=== PATIENT | male | born 1945 | race Caucasian/White ===

== ENCOUNTER → 2017-08-24 | Outpatient (CLI) | payer MEDICARE, OTHER ==
[2017-08-24 15:20] LABS: ALANINE AMINOTRANSFERASE 34 U/L (21-72); ALBUMIN 4.4 g/dL (3.5-5.0); ALKALINE PHOSPHATASE 45 U/L (38-126); ANION GAP 13 (5-19); ASPARTATE AMINO TRANSFERASE 26 U/L (17-59); BILIRUBIN,DIRECT 0.4 mg/dL (0.0-0.4); BILIRUBIN,TOTAL 0.6 mg/dL (0.2-1.3); BLOOD UREA NITROGEN 24 mg/dL (7-20); CALCIUM 10.1 mg/dL (8.4-10.2); CARBON DIOXIDE 25 mmol/L (22-30); CHLORIDE 100 mmol/L (98-107); GLUCOSE 301 mg/dL (75-110); POTASSIUM 5.2 mmol/L (3.6-5.0); SODIUM 137.9 mmol/L (137-145); TOTAL PROTEIN 7.3 g/dL (6.3-8.2); TRIGLYCERIDES 83 mg/dL (<150)
[2017-08-24 15:32] LABS: DIRECT LDL 165 mg/dL (<100)
== END ==
LOC: OD 13:55
PROVIDERS: ATTEND Family Medicine
DX: E11.9 Type 2 diabetes mellitus without complications (principal)
CPT/HCPCS: 36415; 80053; 80061; 83036

== ENCOUNTER → 2018-01-11 | Outpatient (CLI) | payer MEDICARE ==
[2018-01-11 10:06] LABS: ABSOLUTE BASOPHILS # (AUTO) 0.1 10^3/uL (0.0-0.2); ABSOLUTE EOSINOPHILS # (AUTO) 0.3 10^3/uL (0.0-0.6); ABSOLUTE LYMPHOCYTES (AUTO) 2.5 10^3/uL (0.5-4.7); ABSOLUTE MONOCYTES (AUTO) 0.5 10^3/uL (0.1-1.4); ABSOLUTE NEUT (AUTO) 5.5 10^3/uL (1.7-8.2); BASOPHILS % (AUTO) 0.9 % (0-2); EOSINOPHILS % (AUTO) 3.8 % (0-6); HEMOGLOBIN 12.9 g/dL (13.5-17.0); MEAN CORPUSCULAR HEMOGLOBIN 29.8 pg (27.0-33.4); MEAN CORPUSCULAR VOLUME 88 fl (80-97); PLATELET COUNT 295 10^3/uL (150-450); RED BLOOD COUNT 4.34 10^6/uL (4.35-5.55); RED CELL DISTRIBUTION WIDTH 12.8 % (11.5-14.0); SEGMENTED NEUTROPHILS % (AUTO) 61.3 % (42-78); TOTAL CELLS COUNTED % (AUTO) 100 %
[2018-01-11 10:26] LABS: ALANINE AMINOTRANSFERASE 43 U/L (21-72); ALBUMIN 4.2 g/dL (3.5-5.0); ALKALINE PHOSPHATASE 42 U/L (38-126); ANION GAP 9 (5-19); ASPARTATE AMINO TRANSFERASE 33 U/L (17-59); BILIRUBIN,DIRECT 0.3 mg/dL (0.0-0.4); BILIRUBIN,TOTAL 0.5 mg/dL (0.2-1.3); BLOOD UREA NITROGEN 24 mg/dL (7-20); CALCIUM 9.6 mg/dL (8.4-10.2); CARBON DIOXIDE 28 mmol/L (22-30); CHLORIDE 105 mmol/L (98-107); CHOLESTEROL 144.62 mg/dL (0-200); GLUCOSE 162 mg/dL (75-110); POTASSIUM 5.2 mmol/L (3.6-5.0); SODIUM 142.1 mmol/L (137-145); TOTAL PROTEIN 7.1 g/dL (6.3-8.2); TRIGLYCERIDES 72 mg/dL (<150)
[2018-01-11 10:37] LABS: DIRECT LDL 69 mg/dL (<100)
[2018-01-12 12:39] LABS: CREATININE URINE 157.1 mg/dL (Not Estab.); MICROALBUMIN URINE 12.3 ug/mL (Not Estab.)
== END ==
LOC: OD 08:53
PROVIDERS: ATTEND Family Medicine Geriatric Medicine
DX: E11.9 Type 2 diabetes mellitus without complications (principal); E78.5 Hyperlipidemia, unspecified; N40.0 Benign prostatic hyperplasia without lower urinary tract symptoms; Z79.899 Other long term (current) drug therapy
CPT/HCPCS: 36415; 80053; 80061; 82043; 82570; 83036; 84153; 84443; 85025

== ENCOUNTER → 2018-02-28 | Outpatient (CLI) | payer MEDICARE | LOC: OD 08:37 | PROVIDERS: ATTEND Internal Medicine | DX: E87.5 Hyperkalemia (principal) | CPT/HCPCS: 36415; 84132 ==

== ENCOUNTER → 2018-05-11 | Outpatient (CLI) | payer MEDICARE ==
[2018-05-11 10:45] LABS: ANION GAP 12 (5-19); BLOOD UREA NITROGEN 22 mg/dL (7-20); CALCIUM 9.9 mg/dL (8.4-10.2); CARBON DIOXIDE 27 mmol/L (22-30); CHLORIDE 103 mmol/L (98-107); CHOLESTEROL 129.87 mg/dL (0-200); GLUCOSE 142 mg/dL (75-110); POTASSIUM 5.2 mmol/L (3.6-5.0); TRIGLYCERIDES 55 mg/dL (<150)
[2018-05-11 10:56] LABS: DIRECT LDL 69 mg/dL (<100)
[2018-05-12 10:38] LABS: CREATININE URINE 67.6 mg/dL (Not Estab.)
== END ==
LOC: OD 09:09
PROVIDERS: ATTEND Internal Medicine
DX: E78.5 Hyperlipidemia, unspecified (principal); E11.9 Type 2 diabetes mellitus without complications; N19 Unspecified kidney failure; N40.0 Benign prostatic hyperplasia without lower urinary tract symptoms
CPT/HCPCS: 36415; 80048; 80061; 82043; 82570; 83036; 84153

== ENCOUNTER → 2018-05-23 | Outpatient (CLI) | payer MEDICARE ==
--- NOTE | 2018-05-23 18:56 | XCELERA REPORT ---
[address] [address] Lower Extremity Arterial Evaluation Name: LEE IVEY Age: 73 yrs Gender: Male : 1945 Patient Status: Outpatient Patient Location: [facility] Study Date: 05/23/2018 11:19 AM Procedure: A color flow and duplex scan of the lower extremity arteries was performed bilaterally with velocity and waveform anaylsis. Reason For Study: PAD Ordering Physician: EL ARELLANO Performed By: Noble Hernandez Measurements and Calculations Right Left SUPERVISOR [employer]LOOR [employer]SEMBL[employer] PSV 168.5 143.8 cm/sec Prox PFA PSV -110.3 -127.8cm/sec Prox Pop A PSV 36.2 94.3 cm/sec Dist Pop A PSV -53.1 cm/sec Prox SILVER PSV -17.9 cm/sec Dist SILVER PSV 8.3 37.1 cm/sec Prox TEST DECK SUPERVISOR PSV 63.2 cm/sec Dist TEST DECK SUPERVISOR PSV 39.1 36.7 cm/sec Leon Pedis PSV 10.6 45.0 cm/sec Right Side Arterial Evaluation Normal velocity and triphasic waveforms noted in the Common Femoral artery. Biphasic with low normal velocities in the Femoral and Popliteal artery . Monophasic with low normal velocity in the Posterior Tibial. Monophasic with very low velocity in the Anterior Tibial artery. Ankle Brachial index not obtained patient declined. Left Side Arterial Evaluation Normal velocity and triphasic waveforms noted from the Common Femoral artery. to the Popliteal artery . Biphasic with low normal velocity in the Posterior Tibial. Monophasic with very low velocity in the Infrageniculate vessels. Monophasic with low normal velocity in the Dorsalis Pedis. Ankle Brachial index not obtained patient declined. Interpretation Summary Multilevel disease noted on the right, Severe hemodynamic consequence. Moderately severe disease on the left. The results noted, at rest. : EL ARELLANO > Masoud Rios
== END ==
LOC: SP 10:55
PROVIDERS: ATTEND Internal Medicine
DX: I73.9 Peripheral vascular disease, unspecified (principal); E87.5 Hyperkalemia
CPT/HCPCS: 36415; 84132; 93925

== ENCOUNTER → 2018-06-14 | Outpatient (CLI) | payer MEDICARE ==
--- NOTE | 2018-06-14 13:15 | RADIOLOGY REPORT (SQ) ---
EXAM DESCRIPTION: FOOT BILATERAL 3 VIEWS COMPLETED DATE/TIME: 06/14/2018 12:30 pm REASON FOR STUDY: OSTEOMYELITIS M79.671 PAIN IN RIGHT FOOT COMPARISON: None. NUMBER OF VIEWS: Three views. TECHNIQUE: AP, lateral and oblique without weight bearing radiographic images acquired of the right and left foot. LIMITATIONS: None. FINDINGS: RIGHT FOOT: MINERALIZATION: Normal. BONES: No acute fracture or dislocation. No worrisome bone lesions. Small plantar calcaneal spur. JOINTS: No erosions. No carol-articular osteopenia. No chondrocalcinosis. SOFT TISSUES: No swelling. No calcifications. OTHER: No other significant finding. LEFT FOOT: MINERALIZATION: Normal. BONES: No acute fracture or dislocation. Apparent old fractures of the distal tibia and fibula, not well visualized. No worrisome bone lesions. Mild hallux valgus and bunion deformity. Small plantar calcaneal spur. JOINTS: No erosions. No carol-articular osteopenia. No chondrocalcinosis. SOFT TISSUES: No swelling. No calcifications. OTHER: No other significant finding. IMPRESSION: CHRONIC CHANGES DESCRIBED ABOVE. NO ACUTE FINDINGS. NO RADIOGRAPHIC CHANGES OF OSTE OMYELITIS. TECHNICAL DOCUMENTATION: JOB ID: [id number] [employer]- All Rights Reserved Reading location - IP/workstation name: [email or web address]
== END ==
LOC: OD 12:06
PROVIDERS: ATTEND Internal Medicine
DX: M79.671 Pain in right foot (principal)

== ENCOUNTER → 2018-06-28 | Outpatient (CLI) | payer MEDICARE ==
--- NOTE | 2018-06-28 16:58 | RADIOLOGY REPORT (SQ) ---
EXAM DESCRIPTION: CAROTID DOPPLER COMPLETED DATE/TIME: 06/28/2018 3:58 pm REASON FOR STUDY: CAROTID BRUIT R09.89 OTH SYMPTOMS AND SIGNS INVOLVING THE CIRC AND RESP SY COMPARISON: None. TECHNIQUE: Grayscale ultrasound, Doppler velocity and spectra, and color Doppler images acquired of the extra-cranial carotid and vertebral arteries. Images stored on PACS. LIMITATIONS: None. FINDINGS: RIGHT CAROTID CCA Velocities: Normal waveform and velocities without evidence of high-grade stenosis. ICA Velocities Peak systolic 69 cm/s. End diastolic 21 cm/s. Proximal ICA/CCA peak systolic ratio 1.73. Spectra normal. Mild scattered eccentric plaque. LEFT CAROTID CCA Velocities: Normal waveforms and velocities without evidence of high-grade stenosis. ICA Velocities Peak systolic 58 cm/s. End diastolic 16 cm/s. Proximal ICA/CCA peak systolic ratio 1.48. Spectra normal. Mild scattered eccentric plaque plaque. VERTEBRAL ARTERIES: Antegrade flow. Normal waveforms. SUBCLAVIAN ARTERIES: Not imaged. OTHER: External carotid arteries demonstrate multiphasic waveforms bilaterally. IMPRESSION: Scattered carotid atherosclerosis without hemodynamically significant stenosis. COMMENT: Quality ID #[id number]: Velocity criteria are extrapolated from the diameter data as defined by t he Society of Radiologists in Ultrasound Consensus Conference. Radiology 2003: 229; 340-346. TECHNICAL DOCUMENTATION: JOB ID: [id number] [employer]- All Rights Reserved Reading location - IP/workstation name: [email or web address]
== END ==
LOC: SP 13:51
PROVIDERS: ATTEND Surgery
DX: R09.89 Other specified symptoms and signs involving the circulatory and respiratory systems (principal)
CPT/HCPCS: 93880

== ENCOUNTER → 2018-07-28 | Outpatient (CLI) | payer MEDICARE ==
[2018-07-28 14:15] LABS: ABSOLUTE BASOPHILS # (AUTO) 0.1 10^3/uL (0.0-0.2); ABSOLUTE EOSINOPHILS # (AUTO) 0.2 10^3/uL (0.0-0.6); ABSOLUTE LYMPHOCYTES (AUTO) 2.4 10^3/uL (0.5-4.7); ABSOLUTE MONOCYTES (AUTO) 0.7 10^3/uL (0.1-1.4); ABSOLUTE NEUT (AUTO) 7.1 10^3/uL (1.7-8.2); BASOPHILS % (AUTO) 0.7 % (0-2); EOSINOPHILS % (AUTO) 1.8 % (0-6); HEMATOCRIT 33.8 % (37.9-51.0); HEMOGLOBIN 11.2 g/dL (13.5-17.0); LYMPHOCYTES % (AUTO) 22.9 % (13-45); MEAN CORPUSCULAR HEMOGLOBIN 29.4 pg (27.0-33.4); MEAN CORPUSCULAR HGB CONC 33.2 g/dL (32.0-36.0); MEAN CORPUSCULAR VOLUME 89 fl (80-97); MONOCYTES % (AUTO) 6.5 % (3-13); PLATELET COUNT 438 10^3/uL (150-450); RED BLOOD COUNT 3.82 10^6/uL (4.35-5.55); RED CELL DISTRIBUTION WIDTH 12.5 % (11.5-14.0); SEGMENTED NEUTROPHILS % (AUTO) 68.1 % (42-78); TOTAL CELLS COUNTED % (AUTO) 100 %; WHITE BLOOD COUNT 10.4 10^3/uL (4.0-10.5)
--- NOTE | 2018-07-28 14:22 | RADIOLOGY REPORT (SQ) ---
EXAM DESCRIPTION: CHEST PA/LATERAL COMPLETED DATE/TIME: 07/28/2018 1:49 pm REASON FOR STUDY: PNEUMOTHORAX,UNSPECIFIED, NON-PRESSURE ULCER CHRONIC ULCER OF OTHER PART OF COMPARISON: None. EXAM PARAMETERS: NUMBER OF VIEWS: two views TECHNIQUE: Digital Frontal and Lateral radiographic views of the chest acquired. RADIATION DOSE: NA LIMITATIONS: none FINDINGS: LUNGS AND PLEURA: No opacities, masses or pneumothorax. No pleural effusion. MEDIASTINUM AND HILAR STRUCTURES: No masses or contour abnormalities. HEART AND VASCULAR STRUCTURES: Heart normal size. No evidence for failure. BONES: No acute findings. HARDWARE: None in the chest. OTHER: No other significant finding. IMPRESSION: 1. NO SIGNIFICANT RADIOGRAPHIC FINDING IN THE CHEST. TECHNICAL DOCUMENTATION: JOB ID: [id number] [employer]- All Rights Reserved Reading location - IP/workstation name: [email or web address]
[2018-07-28 14:34] LABS: ALANINE AMINOTRANSFERASE 18 U/L (21-72); ALBUMIN 3.9 g/dL (3.5-5.0); ALKALINE PHOSPHATASE 55 U/L (38-126); ANION GAP 10 (5-19); ASPARTATE AMINO TRANSFERASE 16 U/L (17-59); BILIRUBIN,DIRECT 0.1 mg/dL (0.0-0.4); BILIRUBIN,TOTAL 0.2 mg/dL (0.2-1.3); BLOOD UREA NITROGEN 22 mg/dL (7-20); CALCIUM 9.5 mg/dL (8.4-10.2); CARBON DIOXIDE 29 mmol/L (22-30); CHLORIDE 101 mmol/L (98-107); GLUCOSE 128 mg/dL (75-110); POTASSIUM 4.9 mmol/L (3.6-5.0); SODIUM 139.7 mmol/L (137-145); TOTAL PROTEIN 6.5 g/dL (6.3-8.2)
--- NOTE | 2018-07-28 14:53 | RADIOLOGY REPORT (SQ) ---
EXAM DESCRIPTION: FOOT BILATERAL 3 VIEWS COMPLETED DATE/TIME: 07/28/2018 1:49 pm REASON FOR STUDY: PNEUMOTHORAX,UNSPECIFIED, NON-PRESSURE ULCER CHRONIC ULCER OF OTHER PART OF L97.51 2 NON-PRS CHRONIC ULCER OTH PRT RIGHT FOOT W FAT LAYER E11.621 TYPE 2 DIABETES MELLITUS WITH FOOT U LCER J93.9 PNEUMOTHORAX, UNSPECIFIED COMPARISON: 06/14/2018 bilateral feet three view radiographs NUMBER OF VIEWS: Three views. TECHNIQUE: AP, lateral and oblique radiographic images acquired of the right and left foot. LIMITATIONS: None. FINDINGS: RIGHT MINERALIZATION: Normal. BONES: Soft tissue ulcer at the 5th metatarsophalangeal joint. There is subtle demineralization at t he 5th metatarsal head worrisome for early osteomyelitis. JOINTS: No effusions. SOFT TISSUES: Soft tissue ulcer at the 5th metatarsophalangeal joint. No bony demineralization OTHER: No other significant finding. LEFT MINERALIZATION: Normal. BONES: No acute fracture or dislocation. No worrisome bone lesions. JOINTS: No effusions. SOFT TISSUES: No soft tissue swelling. No foreign body. Small soft tissue ulcer at the left 5th met atarsophalangeal joint region without underlying bony demineralization OTHER: No other significant finding. IMPRESSION: Bilateral 5th metatarsophalangeal joint region ulcers. On the right side, subtle demineralization of the right 5th metatarsal head is present worrisome for early osteomyelitis. No underlying bony changes deep to the left plantar ulcer. TECHNICAL DOCUMENTATION: JOB ID: [id number] [employer]- All Rights Reserved Reading location - IP/workstation name: [email or web address]
[2018-07-28 15:13] LABS: ERYTHROCYTE SEDIMENTATION RATE 78 mm/hr (0-20)
== END ==
LOC: WC 13:13
PROVIDERS: ATTEND Preventive Medicine Undersea and Hyperbaric Medicine
DX: E11.621 Type 2 diabetes mellitus with foot ulcer (principal); L97.522 Non-pressure chronic ulcer of other part of left foot with fat layer exposed; L97.512 Non-pressure chronic ulcer of other part of right foot with fat layer exposed; J93.9 Pneumothorax, unspecified
CPT/HCPCS: 36415; 71046; 80053; 83036; 85025; 85652; 86140

== ENCOUNTER 2018-08-26 15:52 | Emergency (ER) | payer MEDICARE ==
[2018-08-26] MEDS ORDERED: SODIUM POLYSTYRENE SULFONATE 15 GM/60 ML PO ONE (17:03)
[2018-08-26] MEDS ORDERED: PATIROMER 8.4 GM SUSP PACKET PO SCH (17:30)
--- NOTE | 2018-08-26 17:33 | ER Document Report ---
ED General - General Chief Complaint: Abnormal Lab Results Stated Complaint: ABNORMAL TEST RESULTS Time Seen by Provider: 08/26/18 17:02 Primary Care Provider: SKYE CORADO FINANCIAL SERVICES SPECIALIST, FINANCIAL SERVICES SPECIALIST [Primary Care Provider] - Follow up as needed Mode of Arrival: Ambulatory Information source: Patient, Relative, [facility] Records Notes: This 73-year-old male patient was sent from the wound care clinic for evaluation of an elevated potassium. He had routine lab work done today and his potassium was 6.1. Reviewing prior lab work, I found that his potassium had run about 5.2 through most of 2018 and was 4.9 one month ago. Vision his creatinine is only slightly higher than it was a month ago. Patient states that he has been eating a lot of fruits to try to help better control his diabetes. He is also been getting orange juice when he is at the wound care clinic. Patient is currently being seen in the wound care clinic for an ulcer on his right foot. He is doing hyperbaric chamber treatments. TRAVEL OUTSIDE OF THE [place] IN LAST 30 DAYS: No - Related Data Allergies/Adverse Reactions: No Known Allergies Allergy (Unverified 08/26/18 15:57) Past Medical History - General Information source: Patient, [facility] Records - Social History Smoking Status: Former Smoker - Quit 40 years ago Cigarette use (# per day): No Chew tobacco use (# tins/day): No Smoking Education Provided: No Frequency of alcohol use: None - Quit 30 years ago Drug Abuse: None Occupation: Retired Lives with: Family Family History: Reviewed & Not Pertinent Patient has suicidal ideation: No Patient has homicidal ideation: No - Past Medical History Cardiac Medical History: Reports: Hx Peripheral Vascular Disease Pulmonary Medical History: Reports: None EENT Medical History: Reports: None Neurological Medical History: Reports: None Endocrine Medical History: Reports: Hx Diabetes Mellitus Type 2 Renal/ Medical History: Reports: None GI Medical History: Reports: None Musculoskeletal Medical History: Reports None Skin Medical History: Reports None Psychiatric Medical History: Reports: None Traumatic Medical History: Reports: Hx Fractures - Right tib-fib Past Surgical History: Reports: Hx Orthopedic Surgery - ORIF right tib-fib Review of Systems - Review of Systems Constitutional: No symptoms reported EENT: No symptoms reported Cardiovascular: No symptoms reported Respiratory: No symptoms reported Gastrointestinal: No symptoms reported Genitourinary: No symptoms reported Musculoskeletal: No symptoms reported Skin: Other - Diabetic pressure ulcers on the right foot Hematologic/Lymphatic: No symptoms reported Neurological/Psychological: Other - Diabetic peripheral neuropathy Physical Exam - Vital signs Vitals: Temp Pulse Resp BP Pulse Ox 97.4 F 89 16 132/41 H 91 L 08/26/18 16:00 08/26/18 16:00 08/26/18 16:00 08/26/18 16:00 08/26/18 16:00 Interpretation: Normal - General General appearance: Appears well, Alert In distress: None - HEENT Head: Normocephalic, Atraumatic Eyes: Normal Pupils: PERRL - Respiratory Respiratory status: No respiratory distress Chest status: Nontender Breath sounds: Normal - Cardiovascular Rhythm: Regular Heart sounds: Normal auscultation Murmur: No - Abdominal Inspection: Normal - Back Back: Normal - Extremities General upper extremity: Normal inspection General lower extremity: Other - There are bandages and socks on the feet. - Neurological Neuro grossly intact: Yes - Psychological Associated symptoms: Normal affect, Normal mood - Skin Skin Temperature: Warm Skin Moisture: Dry Skin Color: Normal Course - Vital Signs Vital signs: Temp Pulse Resp BP Pulse Ox 97.4 F 89 16 132/41 H 91 L 08/26/18 16:00 08/26/18 16:00 08/26/18 16:00 08/26/18 16:00 08/26/18 16:00 - EKG Interpretation by Me EKG shows normal: Sinus rhythm, [place], Intervals, QRS Complexes, ST-T Waves Rate: Normal - 75 Rhythm: NSR Voltage: Decreased voltage When compared to previous EKG there are: Previous EKG unavailable Discharge - Discharge Clinical Impression: Hyperkalemia Condition: Stable Disposition: HOME, SELF-CARE Additional Instructions: Your potassium level was little high today. If it gets much higher, it could affect your heart electrical activity. You should review all the fruits that you are eating and eliminate those that are high in potassium. Drink plenty of water this evening to help flush out more of the potassium. The Veltassa you were given in the emergency room will bind a large amount of that excess potassium and help remove it from your system quicker. Follow-up with your primary care provider Wednesday to repeat your potassium level. RETURN TO THE EMERGENCY ROOM IF ANY NEW OR WORSENING SYMPTOMS. Referrals: GAVEL,SKYE FINANCIAL SERVICES SPECIALIST, FINANCIAL SERVICES SPECIALIST [Primary Care Provider] - Follow up as needed
[2018-08-26 18:21] VITALS: BP 152/69
--- NOTE | 2018-08-26 23:04 | EKG REPORT ---
SEVERITY:- OTHERWISE NORMAL ECG - SINUS RHYTHM LOW VOLTAGE IN FRONTAL LEADS : Confirmed by: Krystyna Hamlin 26-Aug-2018 23:03:35
== END 2018-08-26 18:21 | disposition home or self-care (01) ==
LOC: ER 15:52
DX: E87.5 Hyperkalemia (principal); E11.9 Type 2 diabetes mellitus without complications
CPT/HCPCS: 93005; 99283; 93010; J3490

== ENCOUNTER → 2018-08-26 | Outpatient (CLI) | payer MEDICARE ==
--- NOTE | 2018-08-26 11:26 | RADIOLOGY REPORT (SQ) ---
EXAM DESCRIPTION: FOOT RIGHT COMPLETE COMPLETED DATE/TIME: 08/26/2018 11:18 am REASON FOR STUDY: TYPE 2 DIABETES MELLITUS WITH FOOT ULCER E11.621 TYPE 2 DIABETES MELLITUS WITH FO OT ULCER COMPARISON: None. NUMBER OF VIEWS: Three views. TECHNIQUE: AP, lateral and oblique radiographic images acquired of the right foot. LIMITATIONS: None. FINDINGS: MINERALIZATION: Normal. BONES: No acute fracture or dislocation. No worrisome bone lesions. JOINTS: No effusions. SOFT TISSUES: No soft tissue swelling. No foreign body. OTHER: No other significant finding. IMPRESSION: NEGATIVE STUDY OF THE RIGHT FOOT. NO RADIOGRAPHIC EVIDENCE OF ACUTE INJURY. TECHNICAL DOCUMENTATION: JOB ID: [id number] [employer]- All Rights Reserved Reading location - IP/workstation name: [email or web address]
[2018-08-26 11:28] LABS: ABSOLUTE EOSINOPHILS # (AUTO) 0.5 10^3/uL (0.0-0.6); ABSOLUTE MONOCYTES (AUTO) 0.6 10^3/uL (0.1-1.4); ABSOLUTE NEUT (AUTO) 6.4 10^3/uL (1.7-8.2); BASOPHILS % (AUTO) 0.4 % (0-2); EOSINOPHILS % (AUTO) 5.3 % (0-6); HEMOGLOBIN 11.4 g/dL (13.5-17.0); MEAN CORPUSCULAR HEMOGLOBIN 30.1 pg (27.0-33.4); MEAN CORPUSCULAR HGB CONC 33.6 g/dL (32.0-36.0); MEAN CORPUSCULAR VOLUME 89 fl (80-97); MONOCYTES % (AUTO) 6.4 % (3-13); PLATELET COUNT 291 10^3/uL (150-450); RED BLOOD COUNT 3.81 10^6/uL (4.35-5.55); RED CELL DISTRIBUTION WIDTH 13.8 % (11.5-14.0); SEGMENTED NEUTROPHILS % (AUTO) 66.9 % (42-78); TOTAL CELLS COUNTED % (AUTO) 100 %; WHITE BLOOD COUNT 9.6 10^3/uL (4.0-10.5)
[2018-08-26 11:50] LABS: ALANINE AMINOTRANSFERASE 37 U/L (21-72); ALBUMIN 4.1 g/dL (3.5-5.0); ALKALINE PHOSPHATASE 47 U/L (38-126); ANION GAP 8 (5-19); ASPARTATE AMINO TRANSFERASE 28 U/L (17-59); BILIRUBIN,DIRECT 0.2 mg/dL (0.0-0.4); BILIRUBIN,TOTAL 0.3 mg/dL (0.2-1.3); BLOOD UREA NITROGEN 21 mg/dL (7-20); C-REACTIVE PROTEIN 7.8 mg/L (<10.0); CALCIUM 10.3 mg/dL (8.4-10.2); CARBON DIOXIDE 28 mmol/L (22-30); CHLORIDE 101 mmol/L (98-107); GLUCOSE 195 mg/dL (75-110)
[2018-08-26 11:56] LABS: POTASSIUM 6.1 mmol/L (3.6-5.0)
[2018-08-26 12:04] LABS: ERYTHROCYTE SEDIMENTATION RATE 46 mm/hr (0-20)
== END ==
LOC: WC 10:42
PROVIDERS: ATTEND Nurse Practitioner Family
DX: E11.621 Type 2 diabetes mellitus with foot ulcer (principal); L97.512 Non-pressure chronic ulcer of other part of right foot with fat layer exposed; E11.69 Type 2 diabetes mellitus with other specified complication; M86.171 Other acute osteomyelitis, right ankle and foot
CPT/HCPCS: 36415; 80053; 83036; 85025; 85652; 86140

== ENCOUNTER 2018-09-21 06:54 | Day surgery (SDC) | payer MEDICARE ==
[~2018-09-21 06:54] MED LIST: CEFAZOLIN 1 GM/D5W RTU 1 GM/50 ML RTUPB IV SCH; DIPHENHYDRAMINE HCL 50 MG/ML VIAL ONE; FENTANYL CITRATE INJ/PF 100 MCG/2 ML AMPUL ONE; MIDAZOLAM 2 MG/2 ML INJ ONE; PROPOFOL INJ 200 MG/20 ML VIAL IV ONE
[2018-09-21] MEDS ORDERED: POLYMYXIN B SULFATE INJ 500000 UNIT VIAL ONE (07:15)
[2018-09-21] MEDS ORDERED: LIDOCAINE 2% INJ (20 MG/ML) 20 ML MDV ONE (07:16)
[2018-09-21] MEDS ORDERED: NORMAL SALINE INJ/PF 0.9% 10 ML SDV ONE (07:16)
[2018-09-21] MEDS ORDERED: BUPIVACAINE HCL 0.5 % INJ/PF 30 ML SDV ONE (07:16)
[2018-09-21] MEDS ORDERED: BACITRACIN INJ 50,000 UNIT VIAL ONE (07:16)
[2018-09-21] MEDS ORDERED: LIDOCAINE 2%/EPINEPHRINE INJ 20 ML VIAL ONE (08:14)
--- NOTE | 2018-09-21 10:13 | SURGICARE OPERATIVE REPORT E ---
[facility] Operative Report NAME: LEE IVEY AGE: 73Y DATE OF SURGERY: 09/21/2018 ROOM: PREOPERATIVE DIAGNOSES: 1. Ulceration of the fifth metatarsophalangeal joint of the right foot. 2. Peripheral artery disease. 3. Possible osteomyelitis of the fifth metatarsal head. OPERATION: Amputation of the fifth toe with partial fifth ray resection. OPERATING SURGEON: GAY GILBERT DPM GROUNDMAN/LINEMAN: Lara Mendoza DPM PROCEDURE: On 09/21/2018, the patient was admitted to [facility] and was taken to the operating room where following induction of intravenous sedation and regional local anesthesia, the patient's right foot and leg were prepped with Betadine scrub. Sterile draping was completed and the following procedure was performed. Attention was directed to the lateral aspect of the patient's right foot where there was noted to be a 3 cm diameter ulceration overlying the fifth metatarsophalangeal joint in a plantar lateral orientation. Attention was directed to the proximal portion of the fifth metatarsal where a 3 cm linear incision was placed on the dorsolateral aspect. It was deep in the subcutaneous tissues and superficial fascia. All bleeding vessels were clamped, ligated, and bovied as necessary for hemostasis. Incision was deepened via sharp and blunt dissection down to the fifth metatarsal. It was freed from its surrounding soft tissue attachments then utilizing a power sagittal saw the metatarsal was osteomized in a dorsal plantar fashion and angulated from proximal lateral to distal medial. The distal one half of the fifth metatarsal was removed en toto. A portion of the proximal end was sent for bacterial culture and the remaining portion was sent to pathology for examination. The area was flushed with copious amounts of sterile antibiotic solution and inspected for any soft tissue osseous debris. The wound was debrided as needed of any necrotic tissue. All tendinous and capsular structures were likewise removed. The wound was packed and attention was directed to the fifth toe. A racket-type incision was placed more dorsal medial and the fifth toe was disarticulated and removing the entire digit in one procedure. All necrotic tissue was debrided. All tendinous tissue was debrided. All bleeding vessels were clamped, ligated, and bovied as necessary for hemostasis. At that time, the wound was flushed with copious amounts of sterile antibiotic solution and inspected for any soft tissue osseous debris with none being noted. Fluoroscopic exam was performed and was noted all bony tissue had been removed that was targeted to be removed. At that time, bone wax applied to the remaining portion of the fifth metatarsal shaft and then the wound was then coapted and maintained with suture of 3-0 Vicryl in the deep fascial layers. Skin incision was then coapted and maintained with simple interrupted suture of 4-0 nylon. It should be noted that capillary filling was delayed on the wound margins and somewhat dusky. Patient has known peripheral artery disease currently under care of Dr Jiang, vascular surgeon. At that time, sterile dressings of Jani silk, 4 x 4s, and Kerlix was applied to the patient's right foot and was secured with tape. No compression dressing was applied. The patient tolerated surgery and anesthesia well and was then taken to the recovery room where further monitored by the Anesthesia Department. DICTATING PHYSICIAN: GAY GILBERT DPM [id number] PHY#: [id number] ID: [id number] JOB#: [id number] ACCT: [id number] cc:GAY GILBERT DPM > MTDD
--- NOTE | 2018-09-21 10:35 | RADIOLOGY REPORT (SQ) ---
EXAM DESCRIPTION: NO CHG FLUORO; FOOT RIGHT 2 VIEWS COMPLETED DATE/TIME: 09/21/2018 9:54 am REASON FOR STUDY: AMPUTATION OF THE FIFTH TOE H05.021 OSTEOMYELITIS OF RIGHT ORBIT COMPARISON: None. FLUOROSCOPY TIME: 1 Images saved to PACS TECHNIQUE: Intra-operative images acquired during surgical procedure to evaluate progress. NUMBER OF IMAGES: 1 LIMITATIONS: None. FINDINGS: LIMITED INTRAOPERATIVE FLUOROSCOPIC IMAGE OBTAINED TO EVALUATE PROGRESS. LIMITED IMAGING DEMONSTRATES EVIDENCE OF 5TH MID METATARSAL AMPUTATION. PLEASE SEE OPERATIVE REPORT FOR OUR FOR DETA ILED DESCRIPTION OF PROCEDURE. IMPRESSION: IMAGE(S) OBTAINED DURING PROCEDURE. COMMENT: Quality ID [id number]: Final reports for procedures using fluoroscopy that document radiation exp osure indices, or exposure time and number of fluorographic images (if radiation exposure indices are not available) Please consult full operative report of the attending physician for description of the procedure. TECHNICAL DOCUMENTATION: JOB ID: [id number] [employer]- All Rights Reserved Reading location - IP/workstation name: [email or web address]
--- NOTE | 2018-09-21 10:35 | RADIOLOGY REPORT (SQ) ---
EXAM DESCRIPTION: NO CHG FLUORO; FOOT RIGHT 2 VIEWS COMPLETED DATE/TIME: 09/21/2018 9:54 am REASON FOR STUDY: AMPUTATION OF THE FIFTH TOE H05.021 OSTEOMYELITIS OF RIGHT ORBIT COMPARISON: None. FLUOROSCOPY TIME: 1 Images saved to PACS TECHNIQUE: Intra-operative images acquired during surgical procedure to evaluate progress. NUMBER OF IMAGES: 1 LIMITATIONS: None. FINDINGS: LIMITED INTRAOPERATIVE FLUOROSCOPIC IMAGE OBTAINED TO EVALUATE PROGRESS. LIMITED IMAGING DEMONSTRATES EVIDENCE OF 5TH MID METATARSAL AMPUTATION. PLEASE SEE OPERATIVE REPORT FOR OUR FOR DETA ILED DESCRIPTION OF PROCEDURE. IMPRESSION: IMAGE(S) OBTAINED DURING PROCEDURE. COMMENT: Quality ID 145: Final reports for procedures using fluoroscopy that document radiation exp osure indices, or exposure time and number of fluorographic images (if radiation exposure indices are not available) Please consult full operative report of the attending physician for description of the procedure. TECHNICAL DOCUMENTATION: JOB ID: [id number] [employer]- All Rights Reserved Reading location - IP/workstation name: [email or web address]
== END 2018-09-21 10:52 | disposition home or self-care (01) ==
LOC: SC 06:54
PROVIDERS: ATTEND Preventive Medicine Undersea and Hyperbaric Medicine
DX: E11.621 Type 2 diabetes mellitus with foot ulcer (principal); I73.9 Peripheral vascular disease, unspecified; M86.671 Other chronic osteomyelitis, right ankle and foot; Z79.84 Long term (current) use of oral hypoglycemic drugs; I25.2 Old myocardial infarction
CPT/HCPCS: 87070; 87205; 87101; 82962; 87075; 88304 ×2; 88311; 73620; 28810; J2250; J3490 ×5; J0690; J1200; J3010; J2704; 01480

== ENCOUNTER → 2018-09-27 | Outpatient (CLI) | payer MEDICARE ==
[2018-09-27 16:19] LABS: ABSOLUTE BASOPHILS # (AUTO) 0.1 10^3/uL (0.0-0.2); ABSOLUTE EOSINOPHILS # (AUTO) 0.3 10^3/uL (0.0-0.6); ABSOLUTE LYMPHOCYTES (AUTO) 2.5 10^3/uL (0.5-4.7); ABSOLUTE MONOCYTES (AUTO) 0.6 10^3/uL (0.1-1.4); ABSOLUTE NEUT (AUTO) 5.6 10^3/uL (1.7-8.2); BASOPHILS % (AUTO) 0.8 % (0-2); EOSINOPHILS % (AUTO) 3.7 % (0-6); HEMOGLOBIN 11.1 g/dL (13.5-17.0); LYMPHOCYTES % (AUTO) 27.9 % (13-45); MEAN CORPUSCULAR HEMOGLOBIN 30.1 pg (27.0-33.4); MEAN CORPUSCULAR HGB CONC 33.7 g/dL (32.0-36.0); MEAN CORPUSCULAR VOLUME 89 fl (80-97); MONOCYTES % (AUTO) 6.2 % (3-13); PLATELET COUNT 306 10^3/uL (150-450); RED CELL DISTRIBUTION WIDTH 14.3 % (11.5-14.0); SEGMENTED NEUTROPHILS % (AUTO) 61.4 % (42-78); TOTAL CELLS COUNTED % (AUTO) 100 %; WHITE BLOOD COUNT 9.1 10^3/uL (4.0-10.5)
[2018-09-27 16:47] LABS: ALANINE AMINOTRANSFERASE 27 U/L (21-72); ALBUMIN 4.2 g/dL (3.5-5.0); ALKALINE PHOSPHATASE 42 U/L (38-126); ANION GAP 10 (5-19); ASPARTATE AMINO TRANSFERASE 23 U/L (17-59); BILIRUBIN,DIRECT 0.2 mg/dL (0.0-0.4); BILIRUBIN,TOTAL 0.3 mg/dL (0.2-1.3); BLOOD UREA NITROGEN 22 mg/dL (7-20); C-REACTIVE PROTEIN 7.1 mg/L (<10.0); CALCIUM 10.2 mg/dL (8.4-10.2); CARBON DIOXIDE 25 mmol/L (22-30); CHLORIDE 104 mmol/L (98-107); GLUCOSE 147 mg/dL (75-110); POTASSIUM 4.7 mmol/L (3.6-5.0); SODIUM 138.5 mmol/L (137-145); TOTAL PROTEIN 7.1 g/dL (6.3-8.2)
--- NOTE | 2018-09-27 16:53 | RADIOLOGY REPORT (SQ) ---
EXAM DESCRIPTION: FOOT RIGHT COMPLETE COMPLETED DATE/TIME: 09/27/2018 4:13 pm REASON FOR STUDY: NON-PRS CHRONIC ULCER OTH PRT RIGHT FOOT W FAT LAYER EXPOSED L97.512 NON-PRS [employer] EJ ULCER OTH PRT RIGHT FOOT W FAT LAYER E11.621 TYPE 2 DIABETES MELLITUS WITH FOOT ULCER COMPARISON: None. NUMBER OF VIEWS: Three views. TECHNIQUE: AP, lateral and oblique radiographic images acquired of the right foot. LIMITATIONS: None. FINDINGS: MINERALIZATION: Normal. BONES: There is amputation of the 5th digit from the mid 5th metatarsal. There is no evidence of ost eomyelitis. There is deformity of the distal tibia from a prior injury. JOINTS: No effusions. SOFT TISSUES: No soft tissue swelling. No foreign body. OTHER: No other significant finding. IMPRESSION: There is no evidence of osteomyelitis status post amputation. TECHNICAL DOCUMENTATION: JOB ID: [id number] [employer]- All Rights Reserved Reading location - IP/workstation name: [email or web address]
[2018-09-27 17:03] LABS: ERYTHROCYTE SEDIMENTATION RATE 58 mm/hr (0-20)
== END ==
LOC: WC 15:25
PROVIDERS: ATTEND Preventive Medicine Undersea and Hyperbaric Medicine
DX: E11.621 Type 2 diabetes mellitus with foot ulcer (principal); L97.512 Non-pressure chronic ulcer of other part of right foot with fat layer exposed
CPT/HCPCS: 36415; 80053; 83036; 85025; 85652; 86140

== ENCOUNTER → 2018-10-18 | Outpatient (CLI) | payer MEDICARE ==
--- NOTE | 2018-10-18 16:30 | RADIOLOGY REPORT (SQ) ---
EXAM DESCRIPTION: FOOT RIGHT COMPLETE COMPLETED DATE/TIME: 10/18/2018 3:42 pm REASON FOR STUDY: NON-PRS CHRONIC ULCER OTH PRT RIGHT FOOT W FAT LAYER EXPOSED E11.621 TYPE 2 DIABE [place] MELLITUS WITH FOOT ULCER L97.512 NON-PRS CHRONIC ULCER OTH PRT RIGHT FOOT W FAT LAYER COMPARISON: 08/26/2018, 09/21/2018, 09/27/2018 right foot films NUMBER OF VIEWS: Three views. TECHNIQUE: AP, lateral and oblique radiographic images acquired of the right foot. LIMITATIONS: None. FINDINGS: MINERALIZATION: Normal. BONES: Post transmetatarsal amputation of the right 5th toe in. No bulky bony overgrowth at the 5th metatarsal to suggest chronic infection. Tiny plantar and dorsal calcaneal spurs. Mild hallux valgu s deformity JOINTS: No effusions. SOFT TISSUES: Small soft tissue ulcer at the skin amputation site over the ball of the foot. No fore ign body. OTHER: No other significant finding. IMPRESSION: Small soft tissue ulcer at the skin over the ball of foot, at the amputation site. No underlying bony findings worrisome for acute or chronic infection TECHNICAL DOCUMENTATION: JOB ID: [id number] [employer]- All Rights Reserved Reading location - IP/workstation name: [email or web address]
[2018-10-18 17:02] LABS: ABSOLUTE BASOPHILS # (AUTO) 0.1 10^3/uL (0.0-0.2); ABSOLUTE EOSINOPHILS # (AUTO) 0.4 10^3/uL (0.0-0.6); ABSOLUTE LYMPHOCYTES (AUTO) 2.4 10^3/uL (0.5-4.7); ABSOLUTE MONOCYTES (AUTO) 0.5 10^3/uL (0.1-1.4); ABSOLUTE NEUT (AUTO) 4.8 10^3/uL (1.7-8.2); BASOPHILS % (AUTO) 0.8 % (0-2); EOSINOPHILS % (AUTO) 4.3 % (0-6); HEMATOCRIT 35.1 % (37.9-51.0); HEMOGLOBIN 11.7 g/dL (13.5-17.0); LYMPHOCYTES % (AUTO) 29.4 % (13-45); MEAN CORPUSCULAR HGB CONC 33.2 g/dL (32.0-36.0); MEAN CORPUSCULAR VOLUME 90 fl (80-97); MONOCYTES % (AUTO) 6.3 % (3-13); PLATELET COUNT 272 10^3/uL (150-450); RED CELL DISTRIBUTION WIDTH 14.4 % (11.5-14.0); SEGMENTED NEUTROPHILS % (AUTO) 59.2 % (42-78); TOTAL CELLS COUNTED % (AUTO) 100 %; WHITE BLOOD COUNT 8.2 10^3/uL (4.0-10.5)
[2018-10-18 17:40] LABS: ERYTHROCYTE SEDIMENTATION RATE 31 mm/hr (0-20)
[2018-10-18 17:53] LABS: ALANINE AMINOTRANSFERASE 21 U/L (21-72); ALBUMIN 4.3 g/dL (3.5-5.0); ALKALINE PHOSPHATASE 40 U/L (38-126); ANION GAP 9 (5-19); ASPARTATE AMINO TRANSFERASE 20 U/L (17-59); BILIRUBIN,DIRECT 0.3 mg/dL (0.0-0.4); BILIRUBIN,TOTAL 0.4 mg/dL (0.2-1.3); BLOOD UREA NITROGEN 23 mg/dL (7-20); CALCIUM 10.3 mg/dL (8.4-10.2); CARBON DIOXIDE 28 mmol/L (22-30); CHLORIDE 104 mmol/L (98-107); GLUCOSE 112 mg/dL (75-110); POTASSIUM 5.4 mmol/L (3.6-5.0); SODIUM 141.2 mmol/L (137-145); TOTAL PROTEIN 7.1 g/dL (6.3-8.2)
[2018-10-18 18:02] LABS: C-REACTIVE PROTEIN < 5.0 mg/L (<10.0)
== END ==
LOC: WC 15:20
PROVIDERS: ATTEND Preventive Medicine Undersea and Hyperbaric Medicine
DX: E11.621 Type 2 diabetes mellitus with foot ulcer (principal); L97.512 Non-pressure chronic ulcer of other part of right foot with fat layer exposed
CPT/HCPCS: 36415; 80053; 83036; 85025; 85652; 86140

== ENCOUNTER → 2018-11-10 | Outpatient (CLI) | payer MEDICARE ==
[2018-11-10 09:58] LABS: CHOLESTEROL 149.03 mg/dL (0-200); TRIGLYCERIDES 55 mg/dL (<150)
[2018-11-10 10:09] LABS: DIRECT LDL 75 mg/dL (<100)
== END ==
LOC: OD 08:14
PROVIDERS: ATTEND Internal Medicine
DX: E78.5 Hyperlipidemia, unspecified (principal); E11.9 Type 2 diabetes mellitus without complications
CPT/HCPCS: 36415; 80061; 83036

== ENCOUNTER 2018-11-27 14:11 | Inpatient (IN) | payer MEDICARE ==
--- NOTE | 2018-11-27 15:25 | ER Document Report ---
ED Medical Screen (RME) - General Chief Complaint: Wound Recheck Stated Complaint: WOUND CHECK Time Seen by Provider: 11/27/18 15:12 Primary Care Provider: EL ARELLANO MD [Primary Care Provider] - Follow up as needed TRAVEL OUTSIDE OF THE [place] IN LAST 30 DAYS: No - HPI Notes: 11/27/18 15:20 Patient is a 73-year-old male with a history of anxiety, diabetes, hypercholest erolemia, peripheral arterial disease to the right lower extremity primarily, amputation of the fifth digit right foot in September who presents per the direction of wound clinic for evaluation of redness, pain, swelling of the right dorsal lateral foot near the area of amputation over the past several days. He has been seen by his surgeon at [facility], Dr. Tellez. Patient states that they did obtain a wound culture a few days ago which is still pending. Daughter states that he was in a wound VAC up until this past . He did spend time in a wound chamber as well. Denies drug allergies. He is otherwise eating and drinking without difficulty. He is urinating normally. No other concerns or complaints. Denies WONG, fever, neck pain, URI, CP, SOB, Abd pain, dysuria, back pain, or rash. I have treated and performed a rapid initial assessment of this patient. A comprehensive ED assessment and evaluation of the patient, analysis of test results and completion of medical decision making process will be conducted by additional ED providers. PHYSICAL EXAMINATION: GENERAL: Well-appearing, well-nourished and in no acute distress. A&Ox4. Answers questions appropriately. LUNGS: Breath sounds clear to auscultation bilaterally and equal. No wheezes rales or rhonchi. HEART: Regular rate and rhythm without murmurs, rubs, gallops. Rt LE: pulses to the extremity are not palpable at this time, but the foot is warm. + trace edema, erythema, warmth, and tenderness near amputation site and to the dorsal lateral foot. Cap refill 3 seconds. Cardio called by RN for arterial scan. - Related Data Allergies/Adverse Reactions: No Known Allergies Allergy (Verified 11/27/18 14:12) Past Medical History - Past Medical History Cardiac Medical History: Reports: Hx Heart Attack - 1984, Hx Peripheral Vascular Disease Denies: Hx Hypertension Pulmonary Medical History: Denies: Hx Asthma Neurological Medical History: Denies: Hx Cerebrovascular Accident, Hx Seizures Endocrine Medical History: Reports: Hx Diabetes Mellitus Type 2 Renal/ Medical History: Denies: Hx Peritoneal Dialysis GI Medical History: Denies: Hx Hepatitis, Hx Hiatal Hernia, Hx Ulcer Traumatic Medical History: Reports: Hx Fractures - Right tib-fib Infectious Medical History: Denies: Hx Hepatitis Past Surgical History: Reports: Hx Orthopedic Surgery - 5th toe amputation. Denies: Hx Open Heart Surgery, Hx Pacemaker Physical Exam - Vital signs Vitals: Temp Pulse Resp BP Pulse Ox 99.5 F 81 16 151/53 H 99 11/27/18 14:18 11/27/18 14:18 11/27/18 14:18 11/27/18 14:18 11/27/18 14:18 Course - Vital Signs Vital signs: Temp Pulse Resp BP Pulse Ox 99.5 F 81 16 151/53 H 99 11/27/18 14:18 11/27/18 14:18 11/27/18 14:18 11/27/18 14:18 11/27/18 14:18 Doctor's Discharge - Discharge Referrals: EL ARELLANO MD [Primary Care Provider] - Follow up as needed
--- NOTE | 2018-11-27 15:56 | RADIOLOGY REPORT (SQ) ---
EXAM DESCRIPTION: FOOT RIGHT COMPLETE COMPLETED DATE/TIME: 11/27/2018 3:47 pm REASON FOR STUDY: eval for osteo rt lateral dorsal foot COMPARISON: 10/18/2018 NUMBER OF VIEWS: Three views. TECHNIQUE: AP, lateral and oblique radiographic images acquired of the right foot. LIMITATIONS: None. FINDINGS: MINERALIZATION: Osteopenia. BONES: Partial amputation of the 5th ray. No obvious findings of osteomyelitis. Healed distal tib-f ib fractures. JOINTS: No effusions. SOFT TISSUES: No soft tissue swelling. No foreign body. OTHER: No other significant finding. IMPRESSION: No plain radiographic evidence for osteomyelitis. TECHNICAL DOCUMENTATION: JOB ID: [id number] [employer]- All Rights Reserved Reading location - IP/workstation name: [email or web address]
[2018-11-27 16:19] LABS: ABSOLUTE BASOPHILS # (AUTO) 0.1 10^3/uL (0.0-0.2); ABSOLUTE EOSINOPHILS # (AUTO) 0.2 10^3/uL (0.0-0.6); ABSOLUTE MONOCYTES (AUTO) 0.6 10^3/uL (0.1-1.4); ABSOLUTE NEUT (AUTO) 10.4 10^3/uL (1.7-8.2); BASOPHILS % (AUTO) 0.4 % (0-2); EOSINOPHILS % (AUTO) 1.5 % (0-6); HEMATOCRIT 39.1 % (37.9-51.0); HEMOGLOBIN 13.3 g/dL (13.5-17.0); LYMPHOCYTES % (AUTO) 8.2 % (13-45); MEAN CORPUSCULAR HEMOGLOBIN 30.5 pg (27.0-33.4); MEAN CORPUSCULAR VOLUME 90 fl (80-97); MONOCYTES % (AUTO) 5.2 % (3-13); PLATELET COUNT 292 10^3/uL (150-450); RED BLOOD COUNT 4.36 10^6/uL (4.35-5.55); RED CELL DISTRIBUTION WIDTH 13.5 % (11.5-14.0); SEGMENTED NEUTROPHILS % (AUTO) 84.7 % (42-78); TOTAL CELLS COUNTED % (AUTO) 100 %; WHITE BLOOD COUNT 12.3 10^3/uL (4.0-10.5)
[2018-11-27 16:28] LABS: INTERNATIONAL RATION (INR) 0.97; PROTHROMBIN TIME 13.4 SEC (11.4-15.4)
[2018-11-27 16:29] LABS: PARTIAL THROMBOPLASTIN TIME 32.5 SEC (23.5-35.8)
[2018-11-27 16:38] LABS: ALANINE AMINOTRANSFERASE 12 U/L (21-72); ALBUMIN 4.8 g/dL (3.5-5.0); ALKALINE PHOSPHATASE 51 U/L (38-126); ANION GAP 10 (5-19); ASPARTATE AMINO TRANSFERASE 25 U/L (17-59); BILIRUBIN,DIRECT 0.4 mg/dL (0.0-0.4); BILIRUBIN,TOTAL 0.6 mg/dL (0.2-1.3); BLOOD UREA NITROGEN 20 mg/dL (7-20); CALCIUM 10.2 mg/dL (8.4-10.2); CARBON DIOXIDE 30 mmol/L (22-30); CHLORIDE 97 mmol/L (98-107); GLUCOSE 182 mg/dL (75-110); SODIUM 136.9 mmol/L (137-145); TOTAL PROTEIN 8.6 g/dL (6.3-8.2)
--- NOTE | 2018-11-27 18:22 | ER Document Report ---
ED General - General TRAVEL OUTSIDE OF THE [place] IN LAST 30 DAYS: No <HAIRTHA DAVID - Last Filed: 11/27/18 20:17> <KRISTINCARLOSYVONNE - Last Filed: 11/27/18 21:04> - General Chief Complaint: Wound Recheck Stated Complaint: WOUND CHECK Time Seen by Provider: 11/27/18 15:12 Primary Care Provider: EL ARELLANO MD [Primary Care Provider] - Follow up as needed Notes: Patient is a 73-year-old male presents to the emergency department with a chief complaint of right foot wound. Patient has been following at Dr. Eller which he did see this past , November 24. The family states that at that time he did have a wound VAC removed. Dr. Eller had told the family and the patient that they would like him to follow-up with Dr. Jiang in [place] as he is concerned about blood flow to the leg. Patient states that since his fifth digit amputation on the right foot September [address] Eller he is intermittently had infection around the site with diabetic ulcers. States that he has been on 3 different antibiotics. Patient states that he did have a good low-grade fever at home today at 100.4. And with chills. The family did call the on-call home health nurse who came at this morning to evaluate the patient and was told to present to the emergency department for further evaluation as she was concerned that the infection may be in his bone. (HARITHA DAVID) - Related Data Allergies/Adverse Reactions: No Known Allergies Allergy (Verified 11/27/18 14:12) Past Medical History - General Information source: Patient - Social History Smoking Status: Unknown if Ever Smoked Cigarette use (# per day): No Chew tobacco use (# tins/day): No Frequency of alcohol use: None Drug Abuse: None Lives with: Family Family History: Reviewed & Not Pertinent Patient has suicidal ideation: No Patient has homicidal ideation: No - Past Medical History Cardiac Medical History: Reports: Hx Heart Attack - 1984, Hx Peripheral Vascular Disease Denies: Hx Hypertension Pulmonary Medical History: Reports: None Denies: Hx Asthma EENT Medical History: Reports: None Neurological Medical History: Reports: None. Denies: Hx Cerebrovascular Accident, Hx Seizures Endocrine Medical History: Reports: Hx Diabetes Mellitus Type 2 Renal/ Medical History: Reports: None. Denies: Hx Peritoneal Dialysis Malignancy Medical History: Reports None GI Medical History: Reports: None. Denies: Hx Hepatitis, Hx Hiatal Hernia, Hx Ulcer Musculoskeletal Medical History: Reports None Skin Medical History: Reports None Psychiatric Medical History: Reports: None Traumatic Medical History: Reports: Hx Fractures - Right tib-fib Infectious Medical History: Denies: Hx Hepatitis Past Surgical History: Reports: Hx Orthopedic Surgery - 5th toe amputation. Denies: Hx Open Heart Surgery, Hx Pacemaker <HARITHA DAVID - Last Filed: 11/27/18 20:17> Review of Systems - Review of Systems Constitutional: See HPI EENT: No symptoms reported Cardiovascular: No symptoms reported Respiratory: No symptoms reported Gastrointestinal: No symptoms reported Genitourinary: No symptoms reported Male Genitourinary: No symptoms reported Musculoskeletal: See HPI Skin: See HPI Hematologic/Lymphatic: No symptoms reported Neurological/Psychological: No symptoms reported <HARITHA DAVID - Last Filed: 11/27/18 20:17> Physical Exam - Vital signs Interpretation: Hypertensive <HARITHA DAVID - Last Filed: 11/27/18 20:17> - Vital signs Vitals: Temp Pulse Resp BP Pulse Ox 99.5 F 81 16 151/53 H 99 11/27/18 14:18 11/27/18 14:18 11/27/18 14:18 11/27/18 14:18 11/27/18 14:18 - Notes Notes: GENERAL: Well-appearing, well-nourished and in no acute distress. HEAD: Atraumatic, normocephalic. EYES: Pupils equal round and reactive to light, extraocular movements intact, sclera anicteric, conjunctiva are normal. ENT: Nares patent, oropharynx clear without exudates. Moist mucous membranes. NECK: Normal range of motion, supple without lymphadenopathy or JVD. LUNGS: Breath sounds clear to auscultation bilaterally and equal. No wheezes rales or rhonchi. HEART: Regular rate and rhythm without murmurs, rubs or gallops. ABDOMEN: Soft, nontender, normoactive bowel sounds. No guarding, no rebound. No masses appreciated. BACK: No cervical, thoracic, lumbar midline tenderness. No saddle anesthesia, normal distal neurovascular exam. GENITOURINARY: Deferred. EXTREMITIES: Right 5th digit amputation noted with surrounding erythema and yellow purulent discharge expelled from the wound when palpated. Patient has a open crusted circular wound to the right lateral foot that also has a yellow purulent discharge draining from the site. There is surrounding edema to the site. The assistance of the surgeon we were able to find a posterior tibial pulse with the hand-held Doppler but unable to Doppler a dorsalis pedis pulse. Patient foot is warm. She also has a healing small circular wound to the right lateral lower extremity that has a bandage over the site. NEUROLOGICAL: Cranial nerves II through XII grossly intact. Normal speech, normal gait. PSYCH: Normal mood, normal affect. SKIN: Warm, Dry, normal turgor, no rashes or lesions noted. (HARITHA DAVID) Course - Laboratory Result Diagrams: 11/27/18 16:09 11/27/18 16:09 - Diagnostic Test Radiology reviewed: Reports reviewed <HARITHA DAVID - Last Filed: 11/27/18 20:17> - Laboratory Result Diagrams: 11/27/18 16:09 11/27/18 16:09 <CARLOS FOSTER - Last Filed: 11/27/18 21:04> - Re-evaluation Re-evalutation: 11/27/18 18:55 Patient has a obvious right foot infection with open wounds and pus draining from the site. Patient has had multiple oral antibiotic treatments since September 21 when he had his right fifth digit removed by Dr. Eller. I did consult with Dr. Vega who was at the bedside discussing patient, and daughter. 11/27/18 19:35 Family and patient discussing possible admission for amputation or to be transferred to [facility] if he would like to potentially save his foot as he would need vascular surgery for this as discussed by Dr. Vega to the family. 11/27/18 19:57 Has decided to stay. I did make Dr. Vega aware as he will schedule the patient tomorrow for a below the knee amputation of the right leg. Spoke with Dr. Luna who states he will consult but will not admit. (HARITHA DAVID) 11/27/18 21:02 73-year-old male presents with right foot pain and pus draining from the right foot. He has been undergoing wound care and had a recent wound VAC removed. Patient does have severe vascular disease. Exam is significant for erythema of the right foot with actively draining pus. There was some conflict between who would admit the patient whether it be Dr. Vega surgical list or Dr. Luna hospitalist. I did speak to Dr. Vega who states that Dr. Luna is refusing admission so that he he will take the patient under his service. PHYSICAL EXAMINATION: GENERAL: Well-appearing, well-nourished and in no acute distress. HEAD: Atraumatic, normocephalic. EYES: Pupils equal round extraocular movements intact, conjunctiva are normal. ENT: Nares patent NECK: Normal range of motion LUNGS: No respiratory distress Musculoskeletal: Normal range of motion NEUROLOGICAL: Normal speech, normal gait. PSYCH: Normal mood, normal affect. SKIN: Right foot erythematous with open wound draining pus actively. (CARLOS FOSTER) - Vital Signs Vital signs: Temp Pulse Resp BP Pulse Ox 101.1 F H 94 18 137/58 H 100 11/27/18 20:16 11/27/18 20:16 11/27/18 20:16 11/27/18 20:16 11/27/18 20:16 - Laboratory Laboratory results interpreted by me: 11/27/18 11/27/18 16:09 16:09 WBC 12.3 H Hgb 13.3 L Seg Neutrophils % 84.7 H Lymphocytes % 8.2 L Absolute Neutrophils 10.4 H Sodium 136.9 L Chloride 97 L Glucose 182 H ALT 12 L Total Protein 8.6 H 11/27/18 19:34 Patient's white blood cell count shows a mild leukocytosis. (HARITHA DAVID) Discharge <HARITHA DAVID - Last Filed: 11/27/18 20:17> - Discharge Admitting Provider: Surgicalist Unit Admitted: Surgical Floor <CARLOS FOSTER - Last Filed: 11/27/18 21:04> - Discharge Clinical Impression: Diabetic foot infection Fever Qualifiers: Fever type: unspecified Qualified Code(s): R50.9 - Fever, unspecified Condition: Stable Disposition: ADMITTED INPATIENT Referrals: EL ARELLANO MD [Primary Care Provider] - Follow up as needed
[2018-11-27] MEDS ORDERED: DEXTROSE 50%-WATER 25 GM/50 ML DISP.SYRIN IV PRN ×2 (19:55)
[2018-11-27] MEDS ORDERED: GLUCAGON,HUMAN RECOMB 1 MG INJ IM PRN (19:55)
[2018-11-27] MEDS ORDERED: DEXTROSE 40% GEL 15 GM TUBE PO PRN ×2 (19:55)
[2018-11-27] MEDS ORDERED: VANCOMYCIN HCL INJ 1000 MG VIAL IV ONE (20:15)
[2018-11-27] MEDS ORDERED: ACETAMINOPHEN 325 MG TABLET PO ONE (20:37)
--- NOTE | 2018-11-27 20:46 | XCELERA REPORT ---
[address] [address] Lower Extremity Arterial Evaluation Name: LEE IVEY Age: 73 yrs Gender: Male : 1945 Patient Status: Preadmit Patient Location: ER Study Date: 11/27/2018 04:31 PM Procedure: A color flow and duplex scan of the lower extremity arteries was performed on the right with velocity and waveform anaylsis. Reason For Study: Rt Valle. h/o PAD Ordering Physician: KIN CALERO Performed By: Ciro Mckenzie Measurements and Calculations Right Left CORPORATE TRAFFIC MANAGER PSV 26.5 91.8 cm/sec Prox PFA PSV 22.6 cm/sec Prox SFA PSV 30.6 cm/sec Mid SFA PSV 24.0 cm/sec Dist SFA PSV 26.7 cm/sec Prox Pop A PSV -48.9 cm/sec Prox SILVER PSV 24.0 cm/sec Prox MONEY POSITION OFFICER PSV -54.1 cm/sec Leon Pedis PSV 28.9 cm/sec Right Side Arterial Evaluation Normal velocity and triphasic waveforms noted in the Common Femoral artery. Monophasic with markedly increased velocity in the Popliteal to the infrageniculate vessels. Ankle Brachial index not done. Interpretation Summary Severe hemodynamically significant lesions in the right lower extremity only, on duplex imaging, at rest. Normal signal at the left Common Femoral. Disease evident at the right Popliteal, consitent with > 90% stenosis. : KIN CALERO > Masoud Rios
[2018-11-27] MEDS ORDERED: HYDRALAZINE HCL INJ/PF 20 MG/1 ML SDV IV PRN (21:03)
[2018-11-27] MEDS ORDERED: ACETAMINOPHEN 325 MG TABLET PO PRN (21:39)
[2018-11-27] MEDS ORDERED: MAG HYDROX/AL HYDROX/SIMETH SUSP 30 ML UDCUP PO PRN (21:39)
[2018-11-27] MEDS ORDERED: MAGNESIUM HYDROXIDE SUSP 30 ML UDCUP PO PRN (21:39)
[2018-11-27] MEDS ORDERED: IPRATROPIUM/ALBUTEROL 0.5-2.5 MG/3 ML AMPUL NEB PRN (21:39)
[2018-11-27] MEDS ORDERED: LACTULOSE SYRUP 20 GM/30 ML UDCUP PO ONE (21:44)
[2018-11-27] MEDS: HEPARIN SOD (PORCINE) 5,000 UNIT/ML 1 ML SYRINGE SUBCUT SCH (21:54)
[2018-11-27] MEDS: GABAPENTIN 300 MG CAPSULE PO SCH (22:01)
[2018-11-27] MEDS: SIMVASTATIN 40 MG TABLET PO SCH (22:01)
[2018-11-27] MEDS: INSULIN GLARGINE,HUM.REC.ANLOG 1,000 UNIT/10 ML VIAL SUBCUT SCH (22:02)
--- NOTE | 2018-11-27 22:20 | PDOC H&P ---
History of Present Illness Admission Date/PCP: EL ARELLANO MD Patient complains of: chronic diabetic foot wound History of Present Illness: LEE IVEY is a 73 year old male with a chronic diabetic foot wound. The patient has a long medical history, including OK at age 38. He has had recent interventional vascular procedures done to the blood vessels of the right lower extremity, without significant improvement. The patient sees Dr. Eller as an o utpatient. He reports that his wound continues to worsen, despite oral antibiotics and maximal medical therapy. I was asked to admit the patient, after refusal of the hospitalist (Dr. Luna) to admit. Patient reports increasing redness, pain, and purulent drainage of the right lateral distal fo ot. Patient denies chest pain, shortness of breath, nausea, vomiting, abdominal pain, dizziness, orthostasis, blurry vision. Past Medical History Cardiac Medical History: Reports: Myocardial Infarction - 1984, Peripheral Vascular Disease Denies: Hypertension Pulmonary Medical History: Reports: None Denies: Asthma EENT Medical History: Reports: None Neurological Medical History: Reports: None Denies: Seizures Endocrine Medical History: Reports: Diabetes Mellitus Type 2 Renal/ Medical History: Reports: None Malignancy Medical History: Reports: None GI Medical History: Reports: None Denies: Hepatitis, Hiatal Hernia Musculoskeltal Medical History: Reports: None Skin Medical History: Reports: None Psychiatric Medical History: Reports: None Hematology: Denies: Anemia, Sickle Cell Disease Past Surgical History Past Surgical History: Reports: Orthopedic Surgery - 5th toe amputation Denies: Pacemaker Social History Lives with: Family Smoking Status: Unknown if Ever Smoked Family History Family History: Reviewed & Not Pertinent Parental Family History Reviewed: Yes Children Family History Reviewed: Yes Sibling(s) Family History Reviewed.: Yes Medication/Allergy Home Medications: Ciprofloxacin HCl [Cipro 500 mg Tablet] 500 mg PO BID 09/16/18 Diazepam [Valium] 5 mg PO DAILY 09/16/18 Gabapentin [Neurontin 300 mg Capsule] 300 mg PO Q12 09/16/18 Glimepiride [Amaryl 4 mg Tablet] 4 mg PO DAILY 09/16/18 Metformin HCl [Metformin HCl ER] 500 mg PO DAILY 09/16/18 Oxycodone HCl/Acetaminophen [Percocet 5-325 mg Tablet] 1 - 2 tab PO ASDIR PRN 09/16/18 Pentoxifylline [Pentoxil] 400 mg PO TID 09/16/18 Simvastatin [Zocor 40 mg Tablet] 40 mg PO QHS 09/16/18 Besifloxacin HCl [Besivance 0.6% Oph Susp 5 ml] 1 drop OP ASDIR 11/24/18 Bromfenac Sodium [Prolensa] 1 drop OP ASDIR 11/24/18 Difluprednate [Durezol] 1 drop OP ASDIR 11/24/18 Allergies/Adverse Reactions: No Known Allergies Allergy (Verified 11/27/18 14:12) Review of Systems Constitutional: ABSENT: anorexia, chills, fatigue, fever(s) Eyes: ABSENT: visual disturbances Ears: ABSENT: hearing changes Nose, Mouth, and Throat: ABSENT: sore throat Cardiovascular: ABSENT: chest pain Respiratory: ABSENT: cough Gastrointestinal: ABSENT: abdominal pain, nausea, vomiting Musculoskeletal: ABSENT: back pain Integumentary: PRESENT: erythema - right foot, wounds - right foot Neurological: ABSENT: confusion, convulsions, dizziness Psychiatric: ABSENT: anxiety, depression Endocrine: ABSENT: cold intolerance, heat intolerance Hematologic/Lymphatic: ABSENT: easy bleeding, easy bruising Physical Exam Vital Signs: Temp Pulse Resp BP Pulse Ox 101.1 F H 94 18 137/58 H 100 11/27/18 20:16 11/27/18 20:16 11/27/18 20:16 11/27/18 20:16 11/27/18 20:16 Intake & Output 11/26/18 11/27/18 11/28/18 06:59 06:59 06:59 Weight 60.8 kg General appearance: PRESENT: no acute distress, cooperative Head exam: PRESENT: atraumatic, normocephalic Eye exam: PRESENT: EOMI, PERRLA Mouth exam: PRESENT: moist, neck supple Neck exam: ABSENT: meningismus, tenderness, thyromegaly, tracheal deviation Respiratory exam: PRESENT: clear to auscultation kat, unlabored. ABSENT: chest wall tenderness, wheezes Cardiovascular exam: PRESENT: RRR Pulses: PRESENT: other - monophasic right PT, no doppler signal right DP, multiphasic right popliteal GI/Abdominal exam: PRESENT: soft. ABSENT: distended, guarding, tenderness Rectal exam: PRESENT: deferred Extremities exam: PRESENT: other - right foot with open wound draining purulent material. Expanding erythema over the right lateral aspect. Neurological exam: PRESENT: alert, awake, oriented to person, oriented to place Psychiatric exam: ABSENT: agitated, anxious, depressed Focused psych exam: ABSENT: delusional Skin exam: PRESENT: erythema - see extremity exam. ABSENT: cyanosis, jaundice Results Laboratory Results: 11/27/18 16:09 11/27/18 16:09 11/27/18 11/27/18 11/27/18 16:09 16:09 20:16 WBC 12.3 H RBC 4.36 Hgb 13.3 L Hct 39.1 MCV 90 MCH 30.5 MCHC 34.0 RDW 13.5 Plt Count 292 Seg Neutrophils % 84.7 H Lymphocytes % 8.2 L Monocytes % 5.2 Eosinophils % 1.5 Basophils % 0.4 Absolute Neutrophils 10.4 H Absolute Lymphocytes 1.0 Absolute Monocytes 0.6 Absolute Eosinophils 0.2 Absolute Basophils 0.1 Sodium 136.9 L Potassium 5.0 Chloride 97 L Carbon Dioxide 30 Anion Gap 10 BUN 20 Creatinine 0.80 Est GFR ( Amer) > 60 Est GFR (Non-Af Amer) > 60 Glucose 182 H Lactic Acid 1.4 Calcium 10.2 Total Bilirubin 0.6 AST 25 ALT 12 L Alkaline Phosphatase 51 Total Protein 8.6 H Albumin 4.8 Impressions: Foot X-Ray 11/27/18 15:19 IMPRESSION: No plain radiographic evidence for osteomyelitis. Assessment & Plan - Diagnosis (1) Type 2 diabetes mellitus Qualifiers: Diabetes mellitus assistant terminal manager insulin use: without prison use Diabetes mellitus complication status: with skin complications Diabetes mellitus complication detail: with foot ulcer Qualified Code(s): E11.621 - Type 2 diabetes mellitus with foot ulcer; L97.509 - Non-pressure chronic ulcer of other part of unspecified foot with unspecified severity Is this a current diagnosis for this admission?: Yes (2) Peripheral vascular disease Is this a current diagnosis for this admission?: Yes (3) History of OK (myocardial infarction) Is this a current diagnosis for this admission?: Yes (4) Coronary artery disease Qualifiers: Coronary Disease-Associated Artery/Lesion type: unspecified vessel or lesion type [place] vs. transplanted heart: unspecified whether [place] or transplanted heart Associated angina: with unspecified angina Qualified Code(s): I25.119 - Atherosclerotic heart disease of [place] coronary artery with unspecified angina pectoris Is this a current diagnosis for this admission?: Yes (5) Diabetic foot infection Is this a current diagnosis for this admission?: Yes - Plan Summary Plan Summary: 73 y/o male with peripheral vascular disease, diabetes type 2, history of OK at age 38, now with a nonhealing diabetic foot. The pt has had multiple rounds of outpatient antibiotics, and these have failed. The hospitalist was asked to admit the patient, but they have refused. I will admit the patient, place him on sliding scale insulin, start IV antibiotics, and plan for surgical intervention. I have reviewed all facets of surgical care, including vascular reconstruction (which would require transfer to another facility). The pt has decided that he is tired of battling his chronic foot infection, and is requesting amputation at this facility. Risks/benefits discussed, informed consent obtained, and all questions answered.
--- NOTE | 2018-11-28 01:08 | EKG REPORT ---
SEVERITY:- OTHERWISE NORMAL ECG - SINUS RHYTHM LOW VOLTAGE IN FRONTAL LEADS : Confirmed by: Kandis Montana MD 28-Nov-2018 01:06:51
[2018-11-28] MEDS: INSULIN LISPRO 100 UNIT/ML 3 ML VIAL SUBCUT SCH ×5 (01:32→21:52)
[2018-11-28] MEDS: CEFEPIME 1 GM/D5W RTU 1 GM/50 ML RTUPB IV SCH ×3 (01:46→21:52)
--- NOTE | 2018-11-28 01:53 | PDOC CONSULTATION ---
Consultation Consult Date: 11/28/18 Attending physician:: MABEL FLOREZ Provider Consulted: SEYMOUR FUENTES Consult reason:: diabetes History of Present Illness Admission Date/PCP: 11/27/18 21:16 EL ARELLANO MD Patient complains of: Nonhealing surgical surgical site History of Present Illness: LEE IVEY is a 73 year old male with a past medical history of peripheral vascular disease, diabetes, dyslipidemia who presents with 9-week nonhealing right 5th amputation surgical site. He is recently undergone evaluation by vascular surgery Dr. Jiang recommending, however following 40 days of hyperbaric therapy and several rounds of at least 3 antibiotics he has had worsening prompting evaluation in the emergency department. He is found to have leukocytosis and fever without tachycardia, malodorous purulent exudate about the packing from his surgical site with erythema and edema of the foot and lower leg. He started on Ringer's lactate, IV vancomycin and surgery is consulted for admission but refuses secondary to diabetes. Patient states he he is otherwise in excellent health despite a reported heart attack 37 years ago that did not require angiography or medication. Regardless he had a negative 15-minute treadmill stress test 3 years ago. He undergoes physical therapy on a regular basis and does not develop shortness of breath, chest, back or abdominal pain or nausea. Patient has regular checkups with his primary care physician Dr. Arellano who has told him he is in otherwise excellent health with an A1c of 7.6 on oral hypoglycemics without recent change of medications. Past Medical History Cardiac Medical History: Reports: Myocardial Infarction - 1984, Peripheral Vascular Disease Denies: Hypertension Pulmonary Medical History: Reports: None Denies: Asthma EENT Medical History: Reports: None Neurological Medical History: Reports: None Denies: Seizures Endocrine Medical History: Reports: Diabetes Mellitus Type 2 Renal/ Medical History: Reports: None Malignancy Medical History: Reports: None GI Medical History: Reports: None Denies: Hepatitis, Hiatal Hernia Musculoskeltal Medical History: Reports: None Skin Medical History: Reports: None Psychiatric Medical History: Reports: None Hematology: Denies: Anemia, Sickle Cell Disease Past Surgical History Past Surgical History: Reports: Orthopedic Surgery - 5th toe amputation Denies: Pacemaker Social History Information Source: Patient, [facility] Records Lives with: Family Smoking Status: Former Smoker Number of Years Smokin Last Time Smoked: over 40 years ago Frequency of Alcohol Use: None Hx Recreational Drug Use: Yes Drugs: Marijuana Hx Prescription Drug Abuse: No - Advance Directive Resuscitation Status: Full Code Family History Family History: Hypertension Parental Family History Reviewed: Yes Children Family History Reviewed: Yes Sibling(s) Family History Reviewed.: Yes Medication/Allergy Home Medications: Diazepam [Valium] 5 mg PO DAILY PRN 09/16/18 Glimepiride [Amaryl 4 mg Tablet] 4 mg PO BID 09/16/18 Metformin HCl [Metformin HCl ER] 500 mg PO DAILY 09/16/18 Pentoxifylline [Pentoxil] 400 mg PO TID 09/16/18 Simvastatin [Zocor 40 mg Tablet] 40 mg PO QHS 09/16/18 Allergies/Adverse Reactions: No Known Allergies Allergy (Verified 11/27/18 14:12) Review of Systems Constitutional: PRESENT: as per HPI. ABSENT: chills, fever(s), headache(s), weight gain, weight loss Eyes: ABSENT: visual disturbances Ears: ABSENT: hearing changes Cardiovascular: ABSENT: chest pain, dyspnea on exertion, edema, orthropnea, palpitations Respiratory: ABSENT: cough, hemoptysis Gastrointestinal: ABSENT: abdominal pain, constipation, diarrhea, hematemesis, hematochezia, nausea, vomiting Genitourinary: ABSENT: dysuria, hematuria Musculoskeletal: PRESENT: other - Right lower extremity claudication. ABSENT: joint swelling Integumentary: PRESENT: as per HPI, erythema, wounds - Surgical site. ABSENT: rash Neurological: ABSENT: abnormal gait, abnormal speech, confusion, dizziness, focal weakness, syncope Psychiatric: ABSENT: anxiety, depression, homidical ideation, suicidal ideation Endocrine: ABSENT: cold intolerance, heat intolerance, polydipsia, polyuria Hematologic/Lymphatic: ABSENT: easy bleeding, easy bruising Physical Exam Vital Signs: Temp Pulse Resp BP Pulse Ox 98.3 F 76 20 116/52 L 95 11/28/18 00:07 11/28/18 00:07 11/28/18 00:07 11/28/18 00:07 11/28/18 00:07 Intake & Output 11/26/18 11/27/18 11/28/18 11:59 11:59 11:59 Weight 63.8 kg General appearance: PRESENT: no acute distress, cooperative, thin, well-develope d, well-nourished. ABSENT: disheveled Head exam: PRESENT: atraumatic, normocephalic Eye exam: PRESENT: conjunctiva pink, EOMI, PERRLA. ABSENT: scleral icterus Ear exam: PRESENT: normal external ear exam Mouth exam: PRESENT: moist, tongue midline Neck exam: ABSENT: carotid bruit, JVD, lymphadenopathy, thyromegaly Respiratory exam: PRESENT: clear to auscultation kat. ABSENT: rales, rhonchi, wheezes Cardiovascular exam: PRESENT: RRR. ABSENT: diastolic murmur, rubs, systolic murmur, tachycardia Pulses: PRESENT: other - Nonpalpable pedal pulses right side. ABSENT: normal dorsalis pedis pul Vascular exam: PRESENT: normal capillary refill GI/Abdominal exam: PRESENT: normal bowel sounds, soft. ABSENT: distended, guarding, mass, organolmegaly, rebound, tenderness Rectal exam: PRESENT: deferred Extremities exam: PRESENT: full ROM - Right foot and toes, limited by pain, pedal edema, tenderness. ABSENT: calf tenderness, clubbing Musculoskeletal exam: PRESENT: full ROM - Right foot and toes, tenderness, other - Absent right fifth metatarsal, purulent malodorous exudate. ABSENT: normal inspection Neurological exam: PRESENT: alert, awake, oriented to person, oriented to place, oriented to time, oriented to situation, CN II-XII grossly intact. ABSENT: motor sensory deficit Psychiatric exam: PRESENT: appropriate affect, normal mood. ABSENT: homicidal ideation, suicidal ideation Skin exam: PRESENT: erythema - Chronic changes of PAD to the right lower extremity, 1 cm x 1.5 cm surgical site open with packing and drainage, other - Chronic changes of PAD to the right lower extremity, 1 cm x 1.5 cm surgical site open with packing and drainage. ABSENT: intact Results Laboratory Results: 11/27/18 16:09 11/27/18 16:09 11/27/18 11/27/18 11/27/18 16:09 16:09 20:16 WBC 12.3 H RBC 4.36 Hgb 13.3 L Hct 39.1 MCV 90 MCH 30.5 MCHC 34.0 RDW 13.5 Plt Count 292 Seg Neutrophils % 84.7 H Lymphocytes % 8.2 L Monocytes % 5.2 Eosinophils % 1.5 Basophils % 0.4 Absolute Neutrophils 10.4 H Absolute Lymphocytes 1.0 Absolute Monocytes 0.6 Absolute Eosinophils 0.2 Absolute Basophils 0.1 Sodium 136.9 L Potassium 5.0 Chloride 97 L Carbon Dioxide 30 Anion Gap 10 BUN 20 Creatinine 0.80 Est GFR ( Amer) > 60 Est GFR (Non-Af Amer) > 60 Glucose 182 H Lactic Acid 1.4 Calcium 10.2 Total Bilirubin 0.6 AST 25 ALT 12 L Alkaline Phosphatase 51 Total Protein 8.6 H Albumin 4.8 Impressions: Foot X-Ray 11/27/18 15:19 IMPRESSION: No plain radiographic evidence for osteomyelitis. Assessment and Plan - Diagnosis (1) Non-healing amputation site Is this a current diagnosis for this admission?: Yes Plan: Empiric antibiotics for coverage of MRSA and Pseudomonas given active drainage otherwise defer to surgery (2) History of [place] (myocardial infarction) Is this a current diagnosis for this admission?: Yes Plan: Cardiology consult (3) Type 2 diabetes mellitus Qualifiers: Diabetes mellitus retirement insulin use: without ferry terminal agent use Diabetes mellitus complication status: with skin complications Diabetes mellitus complication detail: with foot ulcer Qualified Code(s): E11.621 - Type 2 diabetes mellitus with foot ulcer; L97.509 - Non-pressure chronic ulcer of other part of unspecified foot with unspecified severity Is this a current diagnosis for this admission?: Yes Plan: Hold oral hypoglycemics, Lantus 5 mg subcu nightly and Humalog sliding scale ev binta 6 hours while n.p.o. (4) DVT prophylaxis Is this a current diagnosis for this admission?: Yes Plan: Heparin 5000 units subcu every 8 hours - Time Time Spent with patient: 25-34 minutes
[2018-11-28] MEDS: DIAZEPAM 5 MG TABLET PO SCH ×2 (05:26→21:52)
[2018-11-28] MEDS: HEPARIN SOD (PORCINE) 5,000 UNIT/ML 1 ML SYRINGE SUBCUT SCH (05:26)
[2018-11-28 06:27] LABS: ABSOLUTE EOSINOPHILS # (AUTO) 0.4 10^3/uL (0.0-0.6); ABSOLUTE LYMPHOCYTES (AUTO) 0.9 10^3/uL (0.5-4.7); ABSOLUTE MONOCYTES (AUTO) 0.7 10^3/uL (0.1-1.4); ABSOLUTE NEUT (AUTO) 5.5 10^3/uL (1.7-8.2); BASOPHILS % (AUTO) 0.7 % (0-2); EOSINOPHILS % (AUTO) 5.3 % (0-6); HEMATOCRIT 36.2 % (37.9-51.0); HEMOGLOBIN 12.2 g/dL (13.5-17.0); LYMPHOCYTES % (AUTO) 11.6 % (13-45); MEAN CORPUSCULAR HGB CONC 33.6 g/dL (32.0-36.0); MEAN CORPUSCULAR VOLUME 89 fl (80-97); MONOCYTES % (AUTO) 9.4 % (3-13); PLATELET COUNT 213 10^3/uL (150-450); RED BLOOD COUNT 4.06 10^6/uL (4.35-5.55); RED CELL DISTRIBUTION WIDTH 13.2 % (11.5-14.0); TOTAL CELLS COUNTED % (AUTO) 100 %; WHITE BLOOD COUNT 7.6 10^3/uL (4.0-10.5)
--- NOTE | 2018-11-28 07:27 | PDOC PROGRESS REPORT ---
Subjective Progress Note for:: 11/28/18 Subjective:: Is a 73-year-old male with a persistent right diabetic foot infection. Patient reports pain and drainage. This has worsened, despite outpatient antibiotics. Today, he denies chest pain, shortness of breath, fevers, chills, nausea, vomiting, dizziness, blurry vision, orthostasis, fatigue or malaise. Reason For Visit: DM FOOT W PVD Physical Exam Vital Signs: Temp Pulse Resp BP Pulse Ox 97.6 F 71 20 121/54 L 98 11/28/18 03:33 11/28/18 03:33 11/28/18 03:33 11/28/18 03:33 11/28/18 03:33 Intake & Output 11/27/18 11/28/18 11/29/18 06:59 06:59 06:59 Intake Total 50 Output Total 775 Balance -725 Weight 64.1 kg General appearance: PRESENT: no acute distress, cooperative Head exam: PRESENT: atraumatic, normocephalic Eye exam: PRESENT: EOMI, PERRLA Mouth exam: PRESENT: neck supple Neck exam: ABSENT: meningismus, tenderness, thyromegaly, tracheal deviation Respiratory exam: PRESENT: clear to auscultation kat, unlabored. ABSENT: chest wall tenderness, tachypnea Cardiovascular exam: PRESENT: RRR Pulses: PRESENT: other - Pedal pulses not palpable GI/Abdominal exam: PRESENT: soft. ABSENT: tenderness Rectal exam: PRESENT: deferred Extremities exam: PRESENT: other - wound with purulent drainage Neurological exam: PRESENT: alert, awake, oriented to person, oriented to place, oriented to time, oriented to situation, CN II-XII grossly intact Psychiatric exam: ABSENT: agitated, anxious, depressed Focused psych exam: ABSENT: delusional Skin exam: PRESENT: erythema. ABSENT: cyanosis, jaundice Results Laboratory Results: 11/28/18 05:02 11/27/18 16:09 11/27/18 11/27/18 11/27/18 16:09 16:09 20:16 WBC 12.3 H RBC 4.36 Hgb 13.3 L Hct 39.1 MCV 90 MCH 30.5 MCHC 34.0 RDW 13.5 Plt Count 292 Seg Neutrophils % 84.7 H Lymphocytes % 8.2 L Monocytes % 5.2 Eosinophils % 1.5 Basophils % 0.4 Absolute Neutrophils 10.4 H Absolute Lymphocytes 1.0 Absolute Monocytes 0.6 Absolute Eosinophils 0.2 Absolute Basophils 0.1 Sodium 136.9 L Potassium 5.0 Chloride 97 L Carbon Dioxide 30 Anion Gap 10 BUN 20 Creatinine 0.80 Est GFR ( Amer) > 60 Est GFR (Non-Af Amer) > 60 Glucose 182 H Lactic Acid 1.4 Calcium 10.2 Total Bilirubin 0.6 AST 25 ALT 12 L Alkaline Phosphatase 51 Total Protein 8.6 H Albumin 4.8 11/28/18 05:02 WBC 7.6 RBC 4.06 L Hgb 12.2 L Hct 36.2 L MCV 89 MCH 30.0 MCHC 33.6 RDW 13.2 Plt Count 213 Seg Neutrophils % 73.0 Lymphocytes % 11.6 L Monocytes % 9.4 Eosinophils % 5.3 Basophils % 0.7 Absolute Neutrophils 5.5 Absolute Lymphocytes 0.9 Absolute Monocytes 0.7 Absolute Eosinophils 0.4 Absolute Basophils 0.0 Sodium Potassium Chloride Carbon Dioxide Anion Gap BUN Creatinine Est GFR ( Amer) Est GFR (Non-Af Amer) Glucose Lactic Acid Calcium Total Bilirubin AST ALT Alkaline Phosphatase Total Protein Albumin Impressions: Foot X-Ray 11/27/18 15:19 IMPRESSION: No plain radiographic evidence for osteomyelitis. Assessment & Plan - Diagnosis (1) Type 2 diabetes mellitus Qualifiers: Diabetes mellitus termite inspector insulin use: without termite inspector use Diabetes mellitus complication status: with skin complications Diabetes mellitus complication detail: with foot ulcer Qualified Code(s): E11.621 - Type 2 diabetes mellitus with foot ulcer; L97.509 - Non-pressure chronic ulcer of other part of unspecified foot with unspecified severity Is this a current diagnosis for this admission?: Yes (2) Peripheral vascular disease Is this a current diagnosis for this admission?: Yes (3) History of [place] (myocardial infarction) Is this a current diagnosis for this admission?: Yes (4) Coronary artery disease Qualifiers: Coronary Disease-Associated Artery/Lesion type: unspecified vessel or lesion type [place] vs. transplanted heart: unspecified whether [place] or transplanted heart Associated angina: with unspecified angina Qualified Code(s): I25.119 - Atherosclerotic heart disease of [place] coronary artery with unspecified angina pectoris Is this a current diagnosis for this admission?: Yes (5) Diabetic foot infection Is this a current diagnosis for this admission?: Yes - Plan Summary Plan Summary: 73 y/o M with a severe diabetic foot infection. He has discussed his treatment with his family. He is weary from failed attempts at foot salvage. He is requesting below knee amputation. Risks/benefits discussed, informed consent obtained, and allq uestions answered.
[2018-11-28 08:27] LABS: ALANINE AMINOTRANSFERASE 25 U/L (21-72); ALBUMIN 3.5 g/dL (3.5-5.0); ALKALINE PHOSPHATASE 45 U/L (38-126); ANION GAP 7 (5-19); ASPARTATE AMINO TRANSFERASE 27 U/L (17-59); BILIRUBIN,DIRECT 0.3 mg/dL (0.0-0.4); BILIRUBIN,TOTAL 0.3 mg/dL (0.2-1.3); BLOOD UREA NITROGEN 23 mg/dL (7-20); CALCIUM 9.3 mg/dL (8.4-10.2); CARBON DIOXIDE 28 mmol/L (22-30); CHLORIDE 101 mmol/L (98-107); GLUCOSE 174 mg/dL (75-110); POTASSIUM 4.7 mmol/L (3.6-5.0); SODIUM 136.2 mmol/L (137-145); TOTAL PROTEIN 6.2 g/dL (6.3-8.2)
--- NOTE | 2018-11-28 08:42 | PDOC PROGRESS REPORT ---
Subjective Progress Note for:: 11/28/18 Subjective:: 73 year old male with a past medical history of peripheral vascular disease, diabetes, dyslipidemia who presents with 9-week nonhealing right 5th amputation surgical site. He is recently undergone evaluation by vascular surgery Dr. Jiang recommending, however following 40 days of hyperbaric therapy and several rounds of at least 3 antibiotics he has had worsening prompting evaluation in the emergency department. He is found to have leukocytosis and fever without tachycardia, malodorous purulent exudate about the packing from his surgical site with erythema and edema of the foot and lower leg. He started on Ringer's lactate, IV vancomycin and surgery is consulted for admission but refuses secondary to diabetes. Patient states he he is otherwise in excellent health despite a reported heart attack 37 years ago that did not require angiography or medication. Regardless he had a negative 15-minute treadmill stress test 3 years ago. He undergoes physical therapy on a regular basis and does not develop shortness of breath, chest, back or abdominal pain or nausea. Patient has regular checkups with his primary care physician Dr. Castillo who has told him he is in otherwise excellent health with an A1c of 7.6 on oral hypoglycemics without recent change of medications. 11[birth year]28[birth year][id number]-cvju-old male with history of diabetes mellitus, hyperlipidemia, peripheral vascular disease admitted for a 9-week old nonhealing right fifth toe amputation site. He is going for BKA today. No complaints today. DVT prophylaxis was discontinued today. INR is 0.97. Plans to arrange for PT OT and rehab consult. No acute events since admission. Blood pressure is 121/54. wBC 7.6. blood Cultures are pending. Reason For Visit: DM FOOT W PVD Physical Exam Vital Signs: Temp Pulse Resp BP Pulse Ox 97.6 F 73 20 121/54 L 98 11/28/18 03:33 11/28/18 07:00 11/28/18 03:33 11/28/18 03:33 11/28/18 03:33 Intake & Output 11/27/18 11/28/18 11/29/18 06:59 06:59 06:59 Intake Total 50 Output Total 775 Balance -725 Weight 64.1 kg General appearance: PRESENT: no acute distress, well-developed Head exam: PRESENT: atraumatic Eye exam: PRESENT: PERRLA Mouth exam: PRESENT: moist, tongue midline Teeth exam: PRESENT: poor dentation Neck exam: ABSENT: carotid bruit, JVD, lymphadenopathy, thyromegaly Respiratory exam: PRESENT: decreased breath sounds Cardiovascular exam: PRESENT: RRR. ABSENT: diastolic murmur, rubs, systolic murmur GI/Abdominal exam: PRESENT: normal bowel sounds, soft. ABSENT: distended, guarding, mass, organolmegaly, rebound, tenderness Rectal exam: PRESENT: deferred Extremities exam: PRESENT: calf tenderness, clubbing, pedal edema, other - Redness and erythema around the nonhealing surgical site at the fifth metatarsal tarsal base. Neurological exam: PRESENT: alert, CN II-XII grossly intact Psychiatric exam: PRESENT: appropriate affect, normal mood. ABSENT: homicidal ideation, suicidal ideation Results Laboratory Results: 11/28/18 05:02 11/27/18 11/27/18 11/27/18 16:09 16:09 20:16 WBC 12.3 H RBC 4.36 Hgb 13.3 L Hct 39.1 MCV 90 MCH 30.5 MCHC 34.0 RDW 13.5 Plt Count 292 Seg Neutrophils % 84.7 H Lymphocytes % 8.2 L Monocytes % 5.2 Eosinophils % 1.5 Basophils % 0.4 Absolute Neutrophils 10.4 H Absolute Lymphocytes 1.0 Absolute Monocytes 0.6 Absolute Eosinophils 0.2 Absolute Basophils 0.1 Sodium 136.9 L Potassium 5.0 Chloride 97 L Carbon Dioxide 30 Anion Gap 10 BUN 20 Creatinine 0.80 Est GFR ( Amer) > 60 Est GFR (Non-Af Amer) > 60 Glucose 182 H Lactic Acid 1.4 Calcium 10.2 Total Bilirubin 0.6 AST 25 ALT 12 L Alkaline Phosphatase 51 Total Protein 8.6 H Albumin 4.8 11/28/18 05:02 WBC 7.6 RBC 4.06 L Hgb 12.2 L Hct 36.2 L MCV 89 MCH 30.0 MCHC 33.6 RDW 13.2 Plt Count 213 Seg Neutrophils % 73.0 Lymphocytes % 11.6 L Monocytes % 9.4 Eosinophils % 5.3 Basophils % 0.7 Absolute Neutrophils 5.5 Absolute Lymphocytes 0.9 Absolute Monocytes 0.7 Absolute Eosinophils 0.4 Absolute Basophils 0.0 Sodium Potassium Chloride Carbon Dioxide Anion Gap BUN Creatinine Est GFR ( Amer) Est GFR (Non-Af Amer) Glucose Lactic Acid Calcium Total Bilirubin AST ALT Alkaline Phosphatase Total Protein Albumin Impressions: Foot X-Ray 11/27/18 15:19 IMPRESSION: No plain radiographic evidence for osteomyelitis. Assessment and Plan - Diagnosis (1) Non-healing amputation site Is this a current diagnosis for this admission?: Yes Plan: Empiric antibiotics for coverage of MRSA and Pseudomonas given active drainage otherwise defer to surgery PT OT and adoption social worker consult was requested. 11/28/2018-blood cultures are pending. Presently on IV cephapirin and IV vancomycin. Going for BKA of the right lower leg. (2) Type 2 diabetes mellitus Qualifiers: Diabetes mellitus computer terminal operator insulin use: without senior care use Diabetes m ellitus complication status: with skin complications Diabetes mellitus co mplication detail: with foot ulcer Qualified Code(s): E11.621 - Type 2 diabetes mellitus with foot ulcer; L97.509 - Non-pressure chronic ulcer of other part of unspecified foot with unspecified severity Is this a current diagnosis for this admission?: Yes Plan: Hold oral hypoglycemics, Lantus 5 mg subcu nightly and Humalog sliding scale every 6 hours while n.p.o. 11/28/2018-patient has history of type 2 diabetes mellitus presently n.p.o. on insulin sliding scale every 6 hours. Home diabetic medications are on hold. He is on Humalog sliding scale. Also receiving Lantus 5 units at night. Latest blood sugar is 174. As per the patient latest hemoglobin A1c 6.7. (3) History of [place] (myocardial infarction) Is this a current diagnosis for this admission?: Yes Plan: Cardiology consult 11/28/[id number]-snfl-old male with history of coronary artery disease with history of AL diabetes mellitus admitted with right foot nonhealing surgical site. No complaints of chest pain. Patient is not on statin and not on DVT prophylaxis for possible surgery today. (4) Peripheral vascular disease Is this a current diagnosis for this admission?: No Plan: 11/28/2018-patient has history of peripheral vascular disease with right fifth toe infection status post amputation as an outpatient by the pediatric team admitted for nonhealing surgical site. Going for BKA today. - Time Time Spent with patient: 25-34 minutes Medications reviewed and adjusted accordingly: Yes Anticipated discharge: SNF
[2018-11-28] MEDS: DOCUSATE SODIUM 100 MG CAPSULE PO SCH ×2 (09:05→17:48)
[2018-11-28] MEDS: GABAPENTIN 300 MG CAPSULE PO SCH ×2 (09:05→21:52)
[2018-11-28] MEDS ORDERED: LIDOCAINE 1% INJ-PF (10 MG/ML) 30 ML SDV ONE (13:41)
[2018-11-28] MEDS ORDERED: BUPIVACAINE HCL 0.25 % INJ/PF (2.5 MG/1 ML) 30 ML VIAL ONE (13:41)
[2018-11-28] MEDS ORDERED: LIDOCAINE 2% INJ-PF (20 MG/ML) 10 ML AMPUL ONE (13:43)
[2018-11-28] MEDS ORDERED: MIDAZOLAM 2 MG/2 ML INJ ONE (13:43)
[2018-11-28] MEDS ORDERED: PROPOFOL INJ 200 MG/20 ML VIAL IV ONE (13:43)
[2018-11-28] MEDS ORDERED: FENTANYL CITRATE INJ/PF 100 MCG/2 ML AMPUL ONE (13:43)
--- NOTE | 2018-11-28 14:38 | Progress Note ---
Provider Note Provider Note: CARDIOLOGY pulmonary note. Follow-up also to follow patient seen at 9:30 AM on 11/28/2018. FULL FORMAL CONSULT TO FOLLOW. Patient interviewed and examined. Reason for consultation: Preoperative cardiac risk assessment the patient is a history of coronary artery disease/myocardial infarction 35 years ago. Consult requesting physician: Dr. Vega, the surgicallist Echo Report:he left ventricle is normal in size. There is normal left ventricular wall thickness. The left ventricular ejection fraction is normal. LV EF is > than 60% The left ventricular wall motion is normal. Cannot assess for ASD,VSD or PFO. The right atrium is normal. The left atrial size is normal. There is no evidence of mitral valve prolapse. There is no vegetation seen on the mitral valve. There is no mitral valve stenosis. There is a trace amount of mitral regurgitation There is no aortic valvular vegetation. There is aortic sclerosis without aortic stenosis. There is no LVOT obstruction. No aortic regurgitation is present. There is no tricuspid stenosis. No tricuspid regurgitation. Unable to calculate RVSP due lack of TR jet. There is no pulmonic valvular stenosis. There is no pulmonic valvular regurgitation. The aortic root is not well visualized but is probably normal size. IMPRESSION: 1. Coronary artery disease history of myocardial infarction 25 years ago. No anginal symptoms since a very long time. Patient with good effort tolerance in the recent past. Also with normal LV ejection fraction by echocardiogram. There is no definite left ventricular wall motion. There is mild aortic sclerosis without stenosis. There is no significant valvular disease. 2. Diabetes mellitus: Type II [id number]. 3. Peripheral vascular disease. 4. Gangrene of right foot for right foot amputation. 5. Preoperative cardiac risk assessment. Recommendation: 1. The patient will be an acceptable/low cardiac risk for this amputation surgery. 2. Recommend perioperative telemetry monitoring of the patient's 3.. Postoperative will get serial EKGs and serial cardiac Will follow.
[2018-11-28] MEDS ORDERED: PROMETHAZINE HCL INJ 25 MG/1 ML VIAL IV PRN ×2 (14:48)
[2018-11-28] MEDS ORDERED: DIPHENHYDRAMINE HCL 50 MG/ML VIAL IV PRN (14:48)
[2018-11-28] MEDS ORDERED: MEPERIDINE HCL/PF INJ 25 MG/1 ML DISP.SYRIN IV PRN (14:48)
[2018-11-28] MEDS ORDERED: FENTANYL CITRATE INJ/PF 100 MCG/2 ML AMPUL IV PRN ×3 (14:48)
[2018-11-28] MEDS ORDERED: ONDANSETRON HCL INJ/PF 4 MG/2 ML SDV IV PRN (14:48)
[2018-11-28] MEDS: MORPHINE SULFATE 10 MG/ML INJ IV PRN ×2 (18:29→23:07)
--- NOTE | 2018-11-28 19:28 | XCELERA REPORT ---
[address] [address] Transthoracic Echocardiogram Report Name: LEE IVEY Age: 73 yrs Gender: Male : 1945 Patient Status: Inpatient Patient Location: [address] [place], [place] [id number] Study Date: 11/28/2018 10:11 AM Height: 68 in Weight: 141 lb BSA: 1.8 m2 Procedure: A two-dimensional transthoracic echocardiogram with color flow and Doppler was performed. Study Quality: Poor. The study was technically difficult with many images being suboptimal in quality. Reason For Study: CAD, murmur and pre-op History: CAD, murmur and pre-op. Ordering Physician: KANDIS MURRELL Performed By: Radha Thao Interpretation Summary The left ventricle is normal in size. There is normal left ventricular wall thickness. The left ventricular ejection fraction is normal. LV EF is > than 60% The left ventricular wall motion is normal. Cannot assess for ASD,VSD or PFO. The right atrium is normal. The left atrial size is normal. There is no evidence of mitral valve prolapse. There is no vegetation seen on the mitral valve. There is no mitral valve stenosis. There is a trace amount of mitral regurgitation There is no aortic valvular vegetation. There is aortic sclerosis without aortic stenosis. There is no LVOT obstruction. No aortic regurgitation is present. There is no tricuspid stenosis. No tricuspid regurgitation. Unable to calculate RVSP due lack of TR jet. There is no pulmonic valvular stenosis. There is no pulmonic valvular regurgitation. The aortic root is not well visualized but is probably normal size. There is no pericardial effusion. MMode/2D Measurements & Calculations IVSd: 0.83 cm LVIDd: 4.5 cm FS: 19.6 % Ao root diam: 3.2 cm LVIDs: 3.7 cm EDV(Teich): 94.4 ml Ao root area: 7.9 cm2 LVPWd: 0.76 cm ESV(Teich): 56.3 ml EF(Teich): 40.4 % Doppler Measurements & Calculations MV E max cliff: MV dec slope: Ao V2 max: LV V1 max P.7 cm/sec 484.6 cm/sec2 129.7 cm/sec 2.4 mmHg MV A max cliff: MV dec time: 0.15 secAo max PG: LV V1 max: 99.9 cm/sec 6.7 mmHg 78.0 cm/sec MV E/A: 0.72 PA V2 max: 71.3 cm/sec PA max P.0 mmHg Left Ventricle The left ventricle is normal in size. There is normal left ventricular wall thickness. The left ventricular ejection fraction is normal. LV EF is > than 60%. Doppler measurements suggest impaired left ventricular relaxation, which is associated with grade I/IV or mild diastolic dysfunction. The left ventricular wall motion is normal. Cannot assess for ASD,VSD or PFO. Right Ventricle The right ventricle is normal in size and function. The right ventricle is not well visualized secondary to technical limitations. Atria The right atrium is normal. Right atrium not well visualized secondary to technical limitations. The left atrial size is normal. Mitral Valve There is no evidence of mitral valve prolapse. There is no vegetation seen on the mitral valve. There is no mitral valve stenosis. There is a trace amount of mitral regurgitation. Aortic Valve There is no aortic valvular vegetation. There is aortic sclerosis without aortic stenosis. There is no LVOT obstruction. No aortic regurgitation is present. Tricuspid Valve There is no tricuspid stenosis. No tricuspid regurgitation. Unable to calculate RVSP due lack of TR jet. Pulmonic Valve There is no pulmonic valvular stenosis. There is no pulmonic valvular regurgitation. Great Vessels The aortic root is not well visualized but is probably normal size. Effusions There is no pericardial effusion. : KANDIS MURRELL > Kandis Murrell
[2018-11-28] MEDS: OXYCODONE-ACETAMINOPHEN 5-325 MG TABLET PO PRN (20:36)
[2018-11-28] MEDS: KETOROLAC TROMETHAMINE INJ/PF 30 MG/1 ML SDV IV SCH (21:51)
[2018-11-28] MEDS: INSULIN GLARGINE,HUM.REC.ANLOG 1,000 UNIT/10 ML VIAL SUBCUT SCH (21:51)
[2018-11-28] MEDS: FAMOTIDINE 20 MG TABLET PO SCH (21:52)
[2018-11-28] MEDS: SIMVASTATIN 40 MG TABLET PO SCH (21:52)
--- NOTE | 2018-11-28 22:39 | PDOC CONSULTATION ---
Consultation-Blank Consultation: CARDIOLOGY CONSULTATION by Dr. Kandis [place]. Patient seen at 9 AM on 11/28/2018. CONSULT REQUESTING PHYSICIAN: Dr. Vega surgical list. REASON FOR CONSULTATION: Preoperative cardiac risk assessment for the patient who is to undergo amputation of the right foot, due to history of prior coronary artery disease and myocardial infarction. HISTORY PRESENT ILLNESS: Patient is a 73-year-old male who is admitted with gangrene of the right foot and is for amputation of the foot. The patient states about 35 years ago he had a small myocardial infarction. But subsequently he has had no problems he has no angina or heart failure or any recurrence of myocardial infarction. His effort tolerance/exercise tolerance has been excellent. 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 He has a history of diabetes mellitus. There is no history of hypertension. There is no history of chronic kidney disease. The patient recently had amputation of the right little toe due to gangrene. The patient states up to a few months ago has been very active. There is no history of TIA CVA. PAST MEDICAL HISTORY: History of diabetes mellitus. History of coronary artery disease remote history of myocardial infarction. No ill effects after that. No history of congestive heart failure. No history of arrhythmia. No history of PND orthopnea syncope. No history of congenital heart disease. No history of TIA or CVA. No history of chronic kidney disease. No history of thyroid disease. No history of TIA CVA. No history of anxiety or depression. There is no history of asthma or COPD. No history of pulmonary embolism. No history of COPD. No history of sleep apnea. PAST SURGICAL HISTORY: History of right little toe amputation in the recent past. ALLERGIES: The patient has no known allergies. RESUSCITATION STATUS: The patient is a full code. His is his surrogate healthcare decision maker. SOCIAL HISTORY: The patient is a non-smoker. There is no history of EtOH abuse. FAMILY HISTORY: Is positive for diabetes mellitus. No history of coronary artery disease or premature coronary artery disease or sudden . REVIEW OF SYSTEMS: CONSTITUTIONAL: Denies any fever chills or rigors denies any fatigue or generalized weakness. HEAD: No history of headaches or head injury. No history of dizziness. EYES: No history of amblyopia diplopia. No history of amaurosis fugax. EARS: No history of hearing loss. No history of tinnitus. NOSE: No history of hayfever. No history of nosebleeds. MOUTH: No history of altered taste sensation. No ulcers in the mouth. No bleeding from the gums. THROAT: No history of odynophagia or dysphagia. No history of recurrent sore throats. SKIN: No history of allergic discoloration of the skin. No history of pruritus. No history of eczema. No history of skin cancer. NECK: No history of neck pain or neck swelling. LUNGS: No history of asthma COPD no symptoms suggestive of upper or lower respiratory tract infection. No history of ple uritic chest pain. No history of hemoptysis. No history of sleep apnea. No history of pulmonary embolism. HEART: Denies history of hypertension. No history of congestive heart failure. Remote history of PR 35 years ago and since then has been stable it is not clear the patient does not remember having a stress test in the past several years. There is no history of congestive heart failure. No history of palpitations. No history of cardiac arrhythmia. No history of PND orthopnea or leg edema. No history of syncope. No history of rheumatic fever. GI: No history of fatty food intolerance. No history of jaundice. No history of hepatitis. No history of GI bleed. No history of GERD. No history of peptic ulcer disease. No history of altered bowel movements. MUSCULOSKELETAL: Denies any arthritis or collagen vascular disease. ENDOCRINE: History of diabetes mellitus present. No history of thyroid disease. No history of polydipsia polyuria. No history of heat or cold intolerance. RENAL: No history of chronic kidney disease. No symptoms of enlarged prostate. No history of hematuria pyuria or dysuria. No symptoms suggest a UTI. 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 No history of headaches migraines or seizures. PSYCHIATRIC: No history of anxiety or depression. No history of suicidal ideation. No history of homicidal ideation. VASCULAR: Peripheral vascular disease by recent arterial Dopplers. No history of DVT. HEMATOLOGICAL: No history of bleeding diathesis. No history of clotting disorders. PHYSICAL EXAMINATION: The patient is well-built and well-nourished. The patient in no acute distress. Selected Entries 11/28/18 07:25 Temperature 97.8 F Temperature Oral Source Pulse Rate 74 Respiratory 18 Rate Blood Pressure 82 Mean BP Location Left Arm BP Position Supine O2 Sat by Pulse 94 Oximetry Oxygen Delivery Room Air Method HEAD: Is atraumatic normocephalic. EYES: Tubes are equal round regular reactive to light accommodation. Extraocular movements are normal. There is no conjunctival pallor there is no scleral icterus. EARS: Tympanic membranes are intact. External auditory canals are clear. NOSE: There is no deviated nasal septum. There is no inflammation of these mucous membrane. MOUTH: Mucous mornings of mouth are moist tongue is moist. There is no ulcers. THROAT: There is no redness of the oropharynx. There is no exudates. SKIN: There is no skin rashes or skin lesions. There is no particular ecchymosis. NECK: Supple. There is no JVD. Carotids are equal there is no bruit. There is no lym phadenopathy. There is no goiter. There is no accessory muscle respiration use. Trachea is central. LUNGS: Is clear to auscultation percussion without any rhonchi rales or wheezing. There is no chest wall tenderness. HEART: S1-S2 is heard. There is no S3 gallop. There is no S4 gallop. There is murmur of aortic sclerosis present. There is no significant mitral or tricuspid regurgitation murmur. There is no rub. ABDOMEN: Soft. There is nontender. There is no hepatospleno megaly. Bowel sounds are well heard. There is no guarding or rigidity. EXTREMITIES: Femorals are well felt bilaterally. The right leg pulse very difficult to palpate. Left is mildly reduced. There is no pedal edema. There is gangrene in the right foot. There is evidence of amputation of the right little toe. There is no evidence of cellulitis. There is no DVT. There is no pedal edema. There is no cyanosis or clubbing. There is delayed capillary filling in the right foot. RU[employer]ER [employer] TE[employer] WATER: The patient is conscious awake alert, oriented x3. There is no focal deficits. PSYCHIATRIC: The patient judgment and insight are intact. Her affect is normal. The patient is EKG shows sinus rhythm. Low voltage in the frontal leads. The patient's arterial Doppler of the right lower extremities show segmental lesions in the right lower extremity. There is greater than 90% stenosis in the right popliteal artery. Current Medications Generic Name Dose Route Start Last Admin Trade Name Freq PRN Reason Stop Dose Admin Acetaminophen 650 mg 11/27/18 21:39 Tylenol 325 Mg Tablet PO 12/27/18 21:38 Q4HP PRN FOR PAIN OR TEMP Al Hydrox/Mg Hydrox/Simethicone 30 ml 11/27/18 21:39 Maalox Plus Susp 30 Udcup PO 12/27/18 21:38 Q6HP PRN HEARTBURN Albuterol/Ipratropium 3 ml 11/27/18 21:39 Duoneb 3 Ml Ampul NEB 12/27/18 21:38 [id number] PRN SHORTNESS OF BREATH Dextrose 12.5 gm 11/27/18 19:55 Dextrose Inj 50% Syringe (25 Gm/50 Ml) IV 12/27/18 19:54 PRN PRN FOR BG 50-69 IN ALERT PATIENT Protocol Dextrose 25 gm 11/27/18 19:55 Dextrose Inj 50% Syringe (25 Gm/50 Ml) IV 12/27/18 19:54 PRN PRN PER PROTOCOL Protocol Diazepam 5 mg 11/27/18 22:00 11/28/18 21:52 Valium 5 Mg Tablet PO 12/04/18 21:59 5 mg QHS JOVANNY Administration Docusate Sodium 100 mg 11/28/18 10:00 11/28/18 17:48 Colace 100 Mg Capsule PO 12/28/18 09:59 Not Given BID JOVANNY Famotidine 20 mg 11/28/18 22:00 11/28/18 21:52 Pepcid 20 Mg Tablet PO 12/28/18 21:59 20 mg Q12 JOVANNY Administration Gabapentin 300 mg 11/27/18 22:00 11/28/18 21:52 Neurontin 300 Mg Capsule PO 12/27/18 21:59 300 mg Q12 JOVANNY Administration Glucagon 1 mg 11/27/18 19:55 Glucagen Inj 1 Mg Vial IM 12/27/18 19:54 PRN PRN Evaluate for BG < 70 Protocol Glucose 30 gm 11/27/18 19:55 Glutose 40% Gel 15 Gm Tube PO 12/27/18 19:54 PRN PRN FOR BG < 50 IN ALERT PATIENT Protocol Glucose 15 gm 11/27/18 19:55 Glutose 40% Gel 15 Gm Tube PO 12/27/18 19:54 PRN PRN FOR BG 50-69 IN ALERT PATIENT Protocol Hydralazine HCl 10 mg 11/27/18 21:03 Apresoline Inj/Pf 20 Mg/1 Ml Sdv IV 12/27/18 21:02 Q6HP PRN Sbp>160 Cefepime HCl 1 gm in 50 mls @ 100 mls/hr 11/27/18 22:00 11/28/18 22:50 Maxipime Rtu 1 Gm/D5w 50 Ml Premix Bag IV 12/04/18 21:59 Infused Q12 JOVANNY Infusion Insulin Glargine 5 unit 11/27/18 22:00 11/28/18 21:51 Lantus Insulin 100 Unit/1 Ml 10 Ml SUBCUT 12/27/18 21:59 5 unit QHS JOVANNY Administration Insulin Human Lispro 0 - 12 unit 11/28/18 22:00 11/28/18 21:52 Humalog Insulin 100 Unit/1 Ml 3 Ml Vial SUBCUT 12/28/18 00:00 4 unit ACHS JOVANNY Administration Protocol Ketorolac Tromethamine 15 mg 11/28/18 22:00 11/28/18 21:51 Toradol Inj/Pf 30 Mg/1 Ml Sdv IV 12/03/18 21:59 15 mg Q8 JOVANNY Administration Magnesium Hydroxide 30 ml 11/27/18 21:39 Milk Of Magnesia 30 Ml Udcup PO 12/27/18 21:38 HSP PRN FOR CONSTIPATION Morphine Sulfate 6 mg 11/27/18 23:16 11/28/18 18:29 Morphine 10 Mg/Ml Inj IV 12/04/18 23:15 6 mg Q4HP PRN Administration FOR BREAKTHROUGH PAIN Oxycodone/Acetaminophen 2 tab 11/28/18 17:36 11/28/18 20:36 Percocet 5-325 Mg Tablet PO 12/05/18 17:35 2 tab Q4HP PRN Administration FOR PAIN Simvastatin 40 mg 11/27/18 22:00 11/28/18 21:52 Zocor 40 Mg Tablet PO 12/27/18 21:59 40 mg QHS JOVANNY Administration Discontinued Medications Generic Name Dose Route Start Last Admin Trade Name Freq PRN Reason Stop Dose Admin Acetaminophen 975 mg 11/27/18 20:37 11/27/18 21:11 Tylenol 325 Mg Tablet PO 11/27/18 20:38 975 mg NOW ONE Administration Bupivacaine HCl Confirm 11/28/18 13:41 11/28/18 14:15 Sensorcaine-Mpf 0.25% Inj 30 Ml Sdv Administered 11/28/18 13:42 20 ml Dose Administration 30 ml .ROUTE .STK-MED ONE Diphenhydramine HCl 12.5 mg 11/28/18 14:48 Benadryl Inj 50 Mg/1 Ml Vial IV 11/28/18 17:48 .WHILE IN PACU PRN ITCHING Fentanyl Citrate Confirm 11/28/18 13:43 Sublimaze Inj/Pf 100 Mcg/2 Ml Ampule Administered 11/28/18 13:44 Dose 100 mcg .ROUTE .STK-MED ONE Fentanyl Citrate 25 mcg 11/28/18 14:48 Sublimaze Inj/Pf 100 Mcg/2 Ml Ampule IV 11/28/18 17:48 .WHILE IN PACU PRN PAIN SCALE 2-3 Fentanyl Citrate 12.5 mcg 11/28/18 14:48 Sublimaze Inj/Pf 100 Mcg/2 Ml Ampule IV 11/28/18 17:48 .WHILE IN PACU PRN PAIN SCALE OF 1 Fentanyl Citrate 50 mcg 11/28/18 14:48 Sublimaze Inj/Pf 100 Mcg/2 Ml Ampule IV 11/28/18 17:48 .WHILE IN PACU PRN PAIN SCALE 4-5 Heparin Sodium (Porcine) 5,000 unit 11/27/18 22:00 11/28/18 05:26 Heparin Inj 5,000 Units/Ml 1 Ml Syringe SUBCUT 12/27/18 21:59 Not Given Q8 [facility] Insulin Human Lispro 0 - 12 unit 11/28/18 00:00 11/28/18 17:48 Humalog Insulin 100 Unit/1 Ml 3 Ml Vial SUBCUT 12/28/18 00:00 Not Given Q6 [facility] Protocol Lactulose 20 gm 11/27/18 21:44 11/27/18 21:54 Cephulac Syrup 20 Gm/30 Ml Udcup PO 11/27/18 21:45 Not Given NOW ONE Lidocaine HCl Confirm 11/28/18 13:41 11/28/18 14:15 Xylocaine 1% Inj-Pf (10 Mg/Ml) 30 Ml Sdv Administered 11/28/18 13:42 20 ml Dose Administration 30 ml .ROUTE .STK-MED ONE Lidocaine HCl Confirm 11/28/18 13:43 Xylocaine 2% Inj-Pf (20 Mg/Ml) 10 Ml Ampul Administered 11/28/18 13:44 Dose 10 ml .ROUTE .STK-MED ONE Meperidine HCl 12.5 mg 11/28/18 14:48 Demerol Inj 25 Mg/1 Ml Syringe IV 11/28/18 17:48 .WHILE IN PACU PRN Shivering Midazolam HCl Confirm 11/28/18 13:43 Versed 2 Mg/2 Ml Inj Administered 11/28/18 13:44 Dose 2 mg .ROUTE .STK-MED ONE Ondansetron HCl 4 mg 11/28/18 14:48 Zofran Inj/Pf 4 Mg/2 Ml Sdv IV 11/28/18 17:48 .WHILE IN PACU PRN NAUSEA AND VOMITING Promethazine HCl 12.5 mg 11/28/18 14:48 Phenergan Inj 25 Mg/1 Ml Vial IV 11/28/18 17:48 .WHILE IN PACU PRN NAUSEA AND VOMITING Promethazine HCl 25 mg 11/28/18 14:48 Phenergan Inj 25 Mg/1 Ml Vial IV 11/28/18 17:48 .WHILE IN PACU PRN NAUSEA AND VOMITING Propofol Confirm 11/28/18 13:43 Diprivan Inj 200 Mg/20 Ml Vial Administered 11/28/18 13:44 Dose 200 mg IV .STK-MED ONE Vancomycin HCl 1,250 mg 11/27/18 20:15 11/27/18 21:12 Vancocin Inj 1000 Mg Vial IV 11/27/18 20:16 1,250 mg IVBAG (ED) ONE Administration HOME MEDICATION: Glimepiride [Amaryl 4 mg Tablet] 4 mg PO BID 11/28/18 Metformin HCl [Metformin HCl ER] 250 mg PO BID 11/28/18 Pentoxifylline [Trental 400 mg Tablet.sa] 400 mg PO TID 11/28/18 Simvastatin [Zocor 40 mg Tablet] 40 mg PO QHS 11/28/18 Labs- Entire Visit 11/27/18 11/27/18 11/27/18 16:09 16:09 16:09 WBC 12.3 H RBC 4.36 Hgb 13.3 L Hct 39.1 MCV 90 MCH 30.5 MCHC 34.0 RDW 13.5 Plt Count 292 Seg Neutrophils % 84.7 H Lymphocytes % 8.2 L Monocytes % 5.2 Eosinophils % 1.5 Basophils % 0.4 Absolute Neutrophils 10.4 H Absolute Lymphocytes 1.0 Absolute Monocytes 0.6 Absolute Eosinophils 0.2 Absolute Basophils 0.1 PT 13.4 INR 0.97 APTT 32.5 Sodium 136.9 L Potassium 5.0 Chloride 97 L Carbon Dioxide 30 Anion Gap 10 BUN 20 Creatinine 0.80 Est GFR ( Amer) > 60 Est GFR (Non-Af Amer) > 60 Glucose 182 H POC Glucose Hemoglobin A1c % Lactic Acid Calcium 10.2 Total Bilirubin 0.6 Direct Bilirubin 0.4 Neonat Total Bilirubin Not Reportable Neonat Direct Bilirubin Not Reportable Neonat Indirect Bili Not Reportable AST 25 ALT 12 L Alkaline Phosphatase 51 Total Protein 8.6 H Albumin 4.8 11/27/18 11/28/18 11/28/18 20:16 01:20 05:02 WBC 7.6 RBC 4.06 L Hgb 12.2 L Hct 36.2 L MCV 89 MCH 30.0 MCHC 33.6 RDW 13.2 Plt Count 213 Seg Neutrophils % 73.0 Lymphocytes % 11.6 L Monocytes % 9.4 Eosinophils % 5.3 Basophils % 0.7 Absolute Neutrophils 5.5 Absolute Lymphocytes 0.9 Absolute Monocytes 0.7 Absolute Eosinophils 0.4 Absolute Basophils 0.0 PT INR APTT Sodium Potassium Chloride Carbon Dioxide Anion Gap BUN Creatinine Est GFR ( Amer) Est GFR (Non-Af Amer) Glucose POC Glucose 245 H Hemoglobin A1c % Lactic Acid 1.4 Calcium Total Bilirubin Direct Bilirubin Neonat Total Bilirubin Neonat Direct Bilirubin Neonat Indirect Bili AST ALT Alkaline Phosphatase Total Protein Albumin 11/28/18 11/28/18 11/28/18 05:02 06:09 07:45 WBC RBC Hgb Hct MCV MCH MCHC RDW Plt Count Seg Neutrophils % Lymphocytes % Monocytes % Eosinophils % Basophils % Absolute Neutrophils Absolute Lymphocytes Absolute Monocytes Absolute Eosinophils Absolute Basophils PT INR APTT Sodium 136.2 L Potassium 4.7 Chloride 101 Carbon Dioxide 28 Anion Gap 7 BUN 23 H Creatinine 0.78 Est GFR ( Amer) > 60 Est GFR (Non-Af Amer) > 60 Glucose 174 H POC Glucose 167 H Hemoglobin A1c % 7.0 H Lactic Acid Calcium 9.3 Total Bilirubin 0.3 Direct Bilirubin 0.3 Neonat Total Bilirubin Not Reportable Neonat Direct Bilirubin Not Reportable Neonat Indirect Bili Not Reportable AST 27 ALT 25 Alkaline Phosphatase 45 Total Protein 6.2 L Albumin 3.5 11/28/18 11/28/18 11:02 20:51 WBC RBC Hgb Hct MCV MCH MCHC RDW Plt Count Seg Neutrophils % Lymphocytes % Monocytes % Eosinophils % Basophils % Absolute Neutrophils Absolute Lymphocytes Absolute Monocytes Absolute Eosinophils Absolute Basophils PT INR APTT Sodium Potassium Chloride Carbon Dioxide Anion Gap BUN Creatinine Est GFR ( Amer) Est GFR (Non-Af Amer) Glucose POC Glucose 192 H 236 H Hemoglobin A1c % Lactic Acid Calcium Total Bilirubin Direct Bilirubin Neonat Total Bilirubin Neonat Direct Bilirubin Neonat Indirect Bili AST ALT Alkaline Phosphatase Total Protein Albumin Foot X-Ray 11/27/18 15:19 IMPRESSION: No plain radiographic evidence for osteomyelitis. Echo Report:he left ventricle is normal in size. There is normal left ventricular wall thickness. The left ventricular ejection fraction is normal. LV EF is > than 60% The left ventricular wall motion is normal. Cannot assess for ASD,VSD or PFO. The right atrium is normal. The left atrial size is normal. There is no evidence of mitral valve prolapse. There is no vegetation seen on the mitral valve. There is no mitral valve stenosis. There is a trace amount of mitral regurgitation There is no aortic valvular vegetation. There is aortic sclerosis without aortic stenosis. There is no LVOT obstruction. No aortic regurgitation is present. There is no tricuspid stenosis. No tricuspid regurgitation. Unable to calculate RVSP due lack of TR jet. There is no pulmonic valvular stenosis. There is no pulmonic valvular regurgitation. The aortic root is not well visualized but is probably normal size. IMPRESSION: 1. Coronary artery disease history of myocardial infarction 25 years ago. No anginal symptoms since a very long time. Patient with good effort tolerance in the recent past. Also with normal LV ejection fraction by echocardiogram. There is no definite left ventricular wall motion. There is mild aortic sclerosis without stenosis. There is no significant valvular disease. 2. Diabetes mellitus: Type II [id number]. Continue antidiabetic medication and Accu-Cheks serially. 3. Peripheral vascular disease. 4. Gangrene of right foot for right foot amputation. 5. Hyperlipidemia: Continue statin. 6. Preoperative cardiac risk assessment. Recommendation: 1. The patient will be an acceptable/low cardiac risk for this amputation surgery. 2. Recommend perioperative telemetry monitoring of the patient's 3.. Postoperative will get serial EKGs and serial cardiac enzymes.
[2018-11-29] MEDS: OXYCODONE-ACETAMINOPHEN 5-325 MG TABLET PO PRN ×4 (01:16→23:33)
--- NOTE | 2018-11-29 01:32 | Operative Report ---
Nonrecallable Operative Report DATE OF SURGERY: 11/28/18 PREOPERATIVE DIAGNOSIS: Chronic diabetic right foot wound. Active diabetic foot infection POSTOPERATIVE DIAGNOSIS: Same as above OPERATION: Right below-knee amputation. SURGEON: MABEL FLOREZ [employer] OFFICER: JENISE MURRAY ANESTHESIA: Spinal TISSUE REMOVED OR ALTERED: Right below-knee amputation COMPLICATIONS: None apparent ESTIMATED BLOOD LOSS: 60 cc PROCEDURE: Drains/implants: 15 [place] round Damion drain beneath the muscle flap. Procedure in detail: After informed consent was obtained, the patient was brought to the operating room and laid in the supine position. The area of the right lower extremity was prepped and draped in a normal sterile fashion. Markings were made on the leg. The first marking was made approximately 5 fingerbreadths below the tibial tuberosity. A 10 blade scalpel was then used to create an incision in the anterior leg extending to approximately the first one third of the leg laterally. The incision was carried distally, creating a posterior flap. This extended approximately another 4 to 5 fingerbreadths. The incision was then met on the other side in similar fashion. Next attention was turned to dividing the anterior compartment, as well as dividing the tibia. The anterior compartment was divided using electrocautery the tibia was cleaned of any tissue. The tibia was retracted anteriorly and the tibia was divided with the reciprocating saw. After this was completed dissection was carried laterally to the fibula. This was done with electrocautery. Large bone cutters were then used to divide the fibula several centimeters proximal to the tibial division. Next the posterior compartment was from the tibia and fibula using electrocautery. The posterior flap was completed, and the below-knee amputation was passed off the field. Hemostasis was achieved using 2-0 Vicryl suture ligations. The vasculature was isolated and divided using suture ligatures. The nerve was divided several centimeters proximal to the amputation site. Next, the soleus and gastrocnemius were flapped anteriorly. The fascia of the posterior compartment was then sutured to the anterior fascia. This was done with 0 Vicryl suture in simple interrupted fashion. Prior to closure, a 15 [place] round Damion drain was placed beneath the muscle flap. The drain was sutured into place using 2-0 nylon suture. Subcutaneous tissues were then closed using 2-0 Vicryl suture in simple interrupted fashion. The overlying skin was closed using skin ronald. A dressing was placed, and the procedure was concluded. All sponge, instrument, and needle counts were correct x2. Condition: Stable. Jenise Murray PA-C was scrubbed and present the entirety of the procedure. She assisted with all portions of the procedure including creation of the skin incisions, dissection of the muscle compartments, division of the bones, creation of the posterior flap, suturing of the flap, closure of the skin.
[2018-11-29] MEDS: MORPHINE SULFATE 10 MG/ML INJ IV PRN ×2 (03:38→08:03)
[2018-11-29 04:33] LABS: ABSOLUTE LYMPHOCYTES (AUTO) 0.8 10^3/uL (0.5-4.7); ABSOLUTE MONOCYTES (AUTO) 0.8 10^3/uL (0.1-1.4); ABSOLUTE NEUT (AUTO) 7.3 10^3/uL (1.7-8.2); BASOPHILS % (AUTO) 0.4 % (0-2); EOSINOPHILS % (AUTO) 0.3 % (0-6); HEMATOCRIT 29.8 % (37.9-51.0); HEMOGLOBIN 10.2 g/dL (13.5-17.0); LYMPHOCYTES % (AUTO) 8.7 % (13-45); MEAN CORPUSCULAR HEMOGLOBIN 30.6 pg (27.0-33.4); MEAN CORPUSCULAR HGB CONC 34.1 g/dL (32.0-36.0); MEAN CORPUSCULAR VOLUME 90 fl (80-97); MONOCYTES % (AUTO) 9.4 % (3-13); PLATELET COUNT 221 10^3/uL (150-450); RED BLOOD COUNT 3.32 10^6/uL (4.35-5.55); RED CELL DISTRIBUTION WIDTH 12.9 % (11.5-14.0); SEGMENTED NEUTROPHILS % (AUTO) 81.2 % (42-78); TOTAL CELLS COUNTED % (AUTO) 100 %
[2018-11-29 04:57] LABS: ALANINE AMINOTRANSFERASE 28 U/L (21-72); ALBUMIN 3.1 g/dL (3.5-5.0); ALKALINE PHOSPHATASE 43 U/L (38-126); ANION GAP 7 (5-19); ASPARTATE AMINO TRANSFERASE 36 U/L (17-59); BILIRUBIN,DIRECT 0.2 mg/dL (0.0-0.4); BILIRUBIN,TOTAL 0.3 mg/dL (0.2-1.3); BLOOD UREA NITROGEN 24 mg/dL (7-20); CALCIUM 8.6 mg/dL (8.4-10.2); CARBON DIOXIDE 28 mmol/L (22-30); CHLORIDE 98 mmol/L (98-107); GLUCOSE 226 mg/dL (75-110); POTASSIUM 4.7 mmol/L (3.6-5.0); SODIUM 132.9 mmol/L (137-145); TOTAL PROTEIN 5.5 g/dL (6.3-8.2)
[2018-11-29] MEDS: KETOROLAC TROMETHAMINE INJ/PF 30 MG/1 ML SDV IV SCH ×3 (05:20→22:19)
[2018-11-29] MEDS: INSULIN LISPRO 100 UNIT/ML 3 ML VIAL SUBCUT SCH ×4 (08:03→22:19)
[2018-11-29] MEDS ORDERED: ONDANSETRON HCL INJ/PF 4 MG/2 ML SDV ONE (08:34)
[2018-11-29] MEDS ORDERED: ONDANSETRON HCL INJ/PF 4 MG/2 ML SDV IV PRN (08:48)
[2018-11-29] MEDS: DOCUSATE SODIUM 100 MG CAPSULE PO SCH ×2 (10:01→17:41)
[2018-11-29] MEDS: CEFEPIME 1 GM/D5W RTU 1 GM/50 ML RTUPB IV SCH ×2 (10:01→22:16)
[2018-11-29] MEDS: FAMOTIDINE 20 MG TABLET PO SCH ×2 (10:01→22:18)
--- NOTE | 2018-11-29 13:52 | PDOC PROGRESS REPORT ---
Subjective Progress Note for:: 11/29/18 Subjective:: Amputation site pain under good control. Reason For Visit: DM FOOT W PVD Physical Exam Vital Signs: Temp Pulse Resp BP Pulse Ox 97.9 F 77 20 112/50 L 98 11/29/18 07:20 11/29/18 07:20 11/29/18 07:20 11/29/18 07:20 11/29/18 07:20 Intake & Output 11/28/18 11/29/18 11/30/18 06:59 06:59 06:59 Intake Total 50 800 50 Output Total 775 400 40 Balance -725 400 10 Weight 64.1 kg 63.7 kg General appearance: PRESENT: no acute distress, cooperative Respiratory exam: PRESENT: clear to auscultation kta Cardiovascular exam: PRESENT: RRR Extremities exam: PRESENT: other - Amputation site dressing intact and dry. Drain output is blood-tinged. Results Laboratory Results: 11/29/18 03:59 11/29/18 03:59 11/29/18 11/29/18 03:59 03:59 WBC 9.0 RBC 3.32 L Hgb 10.2 L Hct 29.8 L MCV 90 MCH 30.6 MCHC 34.1 RDW 12.9 Plt Count 221 Seg Neutrophils % 81.2 H Lymphocytes % 8.7 L Monocytes % 9.4 Eosinophils % 0.3 Basophils % 0.4 Absolute Neutrophils 7.3 Absolute Lymphocytes 0.8 Absolute Monocytes 0.8 Absolute Eosinophils 0.0 Absolute Basophils 0.0 Sodium 132.9 L Potassium 4.7 Chloride 98 Carbon Dioxide 28 Anion Gap 7 BUN 24 H Creatinine 0.85 Est GFR ( Amer) > 60 Est GFR (Non-Af Amer) > 60 Glucose 226 H Calcium 8.6 Magnesium 1.8 Total Bilirubin 0.3 AST 36 ALT 28 Alkaline Phosphatase 43 Total Protein 5.5 L Albumin 3.1 L 11/29/18 03:59 Troponin I 0.052 Impressions: Foot X-Ray 11/27/18 15:19 IMPRESSION: No plain radiographic evidence for osteomyelitis. Assessment & Plan - Diagnosis (1) Diabetic foot infection Is this a current diagnosis for this admission?: Yes Plan: Status post below the knee amputation. Patient looks good postoperatively.
[2018-11-29] MEDS: GABAPENTIN 300 MG CAPSULE PO SCH ×2 (16:26→22:18)
--- NOTE | 2018-11-29 19:57 | PDOC PROGRESS REPORT ---
Subjective Progress Note for:: 11/29/18 Subjective:: Patient complains of a sensation of something stuck in his oropharynx since lunch today. Patient apparently ate a anthony bread sandwich with no bones and no sharp objects but since that time has had this sensation. He has been able to eat and drink without difficulty other than the sensation. He denies any coughing denies any shortness of breath denies any prior episode of this sort of sensation. Reason For Visit: DM FOOT W PVD Physical Exam Vital Signs: Temp Pulse Resp BP Pulse Ox 98.3 F 85 14 117/58 L 100 11/29/18 16:07 11/29/18 16:07 11/29/18 16:07 11/29/18 16:07 11/29/18 16:07 Intake & Output 11/28/18 11/29/18 11/30/18 06:59 06:59 06:59 Intake Total 50 800 830 Output Total 775 400 330 Balance -725 400 500 Weight 64.1 kg 63.7 kg Throat exam: PRESENT: other - Visual exam of the oropharynx via patient's mouth demonstrate no abnormalities. Palpation of his neck demonstrate no palpable masses nor tenderness with pharyngeal movements. Results Laboratory Results: 11/29/18 03:59 11/29/18 03:59 11/29/18 11/29/18 03:59 03:59 WBC 9.0 RBC 3.32 L Hgb 10.2 L Hct 29.8 L MCV 90 MCH 30.6 MCHC 34.1 RDW 12.9 Plt Count 221 Seg Neutrophils % 81.2 H Lymphocytes % 8.7 L Monocytes % 9.4 Eosinophils % 0.3 Basophils % 0.4 Absolute Neutrophils 7.3 Absolute Lymphocytes 0.8 Absolute Monocytes 0.8 Absolute Eosinophils 0.0 Absolute Basophils 0.0 Sodium 132.9 L Potassium 4.7 Chloride 98 Carbon Dioxide 28 Anion Gap 7 BUN 24 H Creatinine 0.85 Est GFR ( Amer) > 60 Est GFR (Non-Af Amer) > 60 Glucose 226 H Calcium 8.6 Magnesium 1.8 Total Bilirubin 0.3 AST 36 ALT 28 Alkaline Phosphatase 43 Total Protein 5.5 L Albumin 3.1 L 11/29/18 03:59 Troponin I 0.052 Impressions: Foot X-Ray 11/27/18 15:19 IMPRESSION: No plain radiographic evidence for osteomyelitis. Assessment & Plan - Diagnosis (1) Diabetic foot infection Is this a current diagnosis for this admission?: Yes (2) Dysphasia Is this a current diagnosis for this admission?: Yes Plan: Sensation of foreign body in the oropharynx with no respiratory symptoms and the patient being able to eat and drink without evidence of obstruction. Suspect oropharyngeal irritation with eating at lunchtime today. No intervention at this time. If symptoms however persist will obtain a swallow study tomorrow morning.
--- NOTE | 2018-11-29 21:53 | PDOC PROGRESS REPORT ---
Subjective Progress Note for:: 11/29/18 Subjective:: 73-year-old male with history of diabetes mellitus, hyperlipidemia, peripheral vascular disease admitted for a 9-week old nonhealing right fifth toe amputation site. 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 Surgical site is clean and intact. No major events during this hospitalization. Blood glucose and blood pressure are well controlled. Patient complains of dysphagia today after swallowing large food bolus. Reason For Visit: DM FOOT W PVD Physical Exam Vital Signs: Temp Pulse Resp BP Pulse Ox 98.3 F 85 14 117/58 L 100 11/29/18 16:07 11/29/18 16:07 11/29/18 16:07 11/29/18 16:07 11/29/18 16:07 Intake & Output 11/28/18 11/29/18 11/30/18 06:59 06:59 06:59 Intake Total 50 800 830 Output Total 775 400 330 Balance -725 400 500 Weight 64.1 kg 63.7 kg General appearance: PRESENT: no acute distress Eye exam: PRESENT: conjunctiva pink, PERRLA Mouth exam: PRESENT: moist Neck exam: PRESENT: full ROM Pulses: PRESENT: normal radial pulses Extremities exam: PRESENT: other - R BKA. ABSENT: pedal edema Musculoskeletal exam: PRESENT: deformity - R BKA Neurological exam: PRESENT: alert, awake, oriented to person, oriented to place, oriented to time, oriented to situation Psychiatric exam: PRESENT: appropriate affect Skin exam: PRESENT: dry, intact, normal color Results Laboratory Results: 11/29/18 03:59 11/29/18 03:59 11/29/18 11/29/18 03:59 03:59 WBC 9.0 RBC 3.32 L Hgb 10.2 L Hct 29.8 L MCV 90 MCH 30.6 MCHC 34.1 RDW 12.9 Plt Count 221 Seg Neutrophils % 81.2 H Lymphocytes % 8.7 L Monocytes % 9.4 Eosinophils % 0.3 Basophils % 0.4 Absolute Neutrophils 7.3 Absolute Lymphocytes 0.8 Absolute Monocytes 0.8 Absolute Eosinophils 0.0 Absolute Basophils 0.0 Sodium 132.9 L Potassium 4.7 Chloride 98 Carbon Dioxide 28 Anion Gap 7 BUN 24 H Creatinine 0.85 Est GFR ( Amer) > 60 Est GFR (Non-Af Amer) > 60 Glucose 226 H Calcium 8.6 Magnesium 1.8 Total Bilirubin 0.3 AST 36 ALT 28 Alkaline Phosphatase 43 Total Protein 5.5 L Albumin 3.1 L 11/29/18 03:59 Troponin I 0.052 Impressions: Foot X-Ray 11/27/18 15:19 IMPRESSION: No plain radiographic evidence for osteomyelitis. Status: Imported from PACS Assessment and Plan - Diagnosis (1) Non-healing amputation site Is this a current diagnosis for this admission?: Yes Plan: Empiric antibiotics for coverage of MRSA and Pseudomonas, diabetic wounds tend to be polymicrobial Currently treated with only Cefepime, would recommend IV vancomycin for G+ coverage Blood cultures are pending. S/p R BKA 11/28/2018 (2) Coronary artery disease Qualifiers: Coronary Disease-Associated Artery/Lesion type: unspecified vessel or lesion type [place] vs. transplanted heart: unspecified whether [place] or transplanted heart Associated angina: with unspecified angina Qualified Code(s): I25.119 - Atherosclerotic heart disease of [place] coronary artery with unspecified angina pectoris Is this a current diagnosis for this admission?: Yes Plan: Without chest pain Continue statin (3) Dysphasia Is this a current diagnosis for this admission?: Yes Plan: Sensation of foreign body in the oropharynx with no respiratory symptoms patient being able to eat and drink without evidence of obstruction. Suspect oropharyngeal irritation by food bolus while eating at lunchtime today. Will offer PRN hurricane spray. If symptoms however persist will obtain a swallow study tomorrow morning. (4) History of PA (myocardial infarction) Is this a current diagnosis for this admission?: Yes Plan: Cardiology consult No complaints of chest pain. (5) Peripheral vascular disease Is this a current diagnosis for this admission?: No Plan: 11/28/2018-patient has history of peripheral vascular disease with right fifth toe infection status post amputation as an outpatient by the pediatric team admitted for nonhealing surgical site. Going for BKA today. (6) Type 2 diabetes mellitus Qualifiers: Diabetes mellitus group home insulin use: without group home use Diabetes mellitus complication status: with skin complications Diabetes mellitus complication detail: with foot ulcer Qualified Code(s): E11.621 - Type 2 diabetes mellitus with foot ulcer; L97.509 - Non-pressure chronic ulcer of other part of unspecified foot with unspecified severity Is this a current diagnosis for this admission?: Yes Plan: Hemoglobin A1c 6.7. Diabetic diet Accuchecks NILDA Echavarria SSI - Time Time Spent with patient: 15-24 minutes Anticipated discharge: Home, SNF Within: within 48 hours - Inpatient Certification Based on my medical assessment, after consideration of the patient's comorbidities, presenting symptoms, or acuity I expect that the services needed warrant INPATIENT care.: Yes I certify that my determination is in accordance with my understanding of Medicare's requirements for reasonable and necessary INPATIENT services [42 CFR 412.3e].: Yes Medical Necessity: Significant Comorbidiites Make Outpatient Treatment Too Risky , Risk of Complication if Not Cared For in Hospital
[2018-11-29] MEDS: SIMVASTATIN 40 MG TABLET PO SCH (22:18)
[2018-11-29] MEDS: INSULIN GLARGINE,HUM.REC.ANLOG 1,000 UNIT/10 ML VIAL SUBCUT SCH (22:18)
[2018-11-29] MEDS: DIAZEPAM 5 MG TABLET PO SCH (22:18)
--- NOTE | 2018-11-29 23:11 | Progress Note ---
Provider Note Provider Note: CARDIOLOGY PROGRESS NOTE by Dr. Kandis [place] on 11/29/2018. SUBJECTIVE: The patient states he has no chest pain. The patient states he ate a preacher sandwich and half asleep, and feels that he did not chew it properly and swallowed it. He knows has a foreign body sensation in his throat. There is no pooling of saliva in the pharynx. And there is no drooling of saliva. The patient is still able to drink and eat. The patient has no chest pain or discomfort. There is no palpitations. There is no arrhythmia seen on the monitor. There is no PND orthopnea seen. Note that the patient successfully underwent AMPUTATION YESTERDAY OF THE RIGHT FOOT. PHYSICAL EXAMINATION: The patient is well-built and well-nourished. In some minor distress due to his complaints of dysphagia and a sensation of foreign body sensation in his throat. Selected Entries 11/29/18 16:07 Temperature 98.3 F Temperature Oral Source Pulse Rate 85 Respiratory 14 Rate Blood Pressure 117/58 L Blood Pressure 77 Mean BP Location Left Arm BP Position Supine O2 Sat by Pulse 100 Oximetry Oxygen Delivery Room Air Method HEAD: Is atraumatic normocephalic. EYES: Tubes are equal round regular reactive to light accommodation. Extraocular movements are normal. There is no conjunctival pallor there is no scleral icterus. EARS: Tympanic membranes are intact. External auditory canals are clear. NOSE: There is no deviated nasal septum. There is no inflammation of these mucous membrane. MOUTH: Mucous mornings of mouth are moist tongue is moist. There is no ulcers. THROAT: There is no redness of the oropharynx. There is no exudates. SKIN: There is no skin rashes or skin lesions. There is no particular ecchymosis. NECK: Supple. There is no JVD. Carotids are equal there is no bruit. There is no lymphadenopathy. There is no goiter. There is no accessory muscle respiration use. Trachea is central. LUNGS: Is clear to auscultation percussion without any rhonchi rales or wheezing. There is no chest wall tenderness. HEART: S1-S2 is heard. There is no S3 gallop. There is no S4 gallop. There is murmur of aortic sclerosis present. There is no significant mitral or tricuspid regurgitation murmur. There is no rub. ABDOMEN: Soft. There is nontender. There is no hepatospleno megaly. Bowel sounds are well heard. There is no guarding or rigidity. EXTREMITIES: Femorals are well felt bilaterally. Left is mildly reduced. There is no pedal edema. The right foot amputations dressing is dry.. WIRE GALVANIZER: The patient is conscious awake alert, oriented x3. There is no focal deficits. PSYCHIATRIC: The patient judgment and insight are intact. Her affect is normal. EKG: Shows normal sinus rhythm. Low voltage in the frontal leads. Otherwise normal EKG. The patient's troponin I is negative for non-ST elevation GA. Labs- All tests 24 hr 11/28/18 11/29/18 11/29/18 16:39 03:59 03:59 WBC 9.0 RBC 3.32 L Hgb 10.2 L Hct 29.8 L MCV 90 MCH 30.6 MCHC 34.1 RDW 12.9 Plt Count 221 Seg Neutrophils % 81.2 H Lymphocytes % 8.7 L Monocytes % 9.4 Eosinophils % 0.3 Basophils % 0.4 Absolute Neutrophils 7.3 Absolute Lymphocytes 0.8 Absolute Monocytes 0.8 Absolute Eosinophils 0.0 Absolute Basophils 0.0 Sodium 132.9 L Potassium 4.7 Chloride 98 Carbon Dioxide 28 Anion Gap 7 BUN 24 H Creatinine 0.85 Est GFR ( Amer) > 60 Est GFR (Non-Af Amer) > 60 Glucose 226 H POC Glucose 153 H Hemoglobin A1c % Calcium 8.6 Magnesium 1.8 Total Bilirubin 0.3 Direct Bilirubin 0.2 Neonat Total Bilirubin Not Reportable Neonat Direct Bilirubin Not Reportable Neonat Indirect Bili Not Reportable AST 36 ALT 28 Alkaline Phosphatase 43 Troponin I Total Protein 5.5 L Albumin 3.1 L 11/29/18 11/29/18 11/29/18 03:59 03:59 07:22 WBC RBC Hgb Hct MCV MCH MCHC RDW Plt Count Seg Neutrophils % Lymphocytes % Monocytes % Eosinophils % Basophils % Absolute Neutrophils Absolute Lymphocytes Absolute Monocytes Absolute Eosinophils Absolute Basophils Sodium Potassium Chloride Carbon Dioxide Anion Gap BUN Creatinine Est GFR ( Amer) Est GFR (Non-Af Amer) Glucose POC Glucose 222 H Hemoglobin A1c % 7.2 H Calcium Magnesium Total Bilirubin Direct Bilirubin Neonat Total Bilirubin Neonat Direct Bilirubin Neonat Indirect Bili AST ALT Alkaline Phosphatase Troponin I 0.052 Total Protein Albumin 0611/29/18 11/29/18 11:53 17:22 21:02 WBC RBC Hgb Hct MCV MCH MCHC RDW Plt Count Seg Neutrophils % Lymphocytes % Monocytes % Eosinophils % Basophils % Absolute Neutrophils Absolute Lymphocytes Absolute Monocytes Absolute Eosinophils Absolute Basophils Sodium Potassium Chloride Carbon Dioxide Anion Gap BUN Creatinine Est GFR ( Amer) Est GFR (Non-Af Amer) Glucose POC Glucose 148 H 235 H 180 H Hemoglobin A1c % Calcium Magnesium Total Bilirubin Direct Bilirubin Neonat Total Bilirubin Neonat Direct Bilirubin Neonat Indirect Bili AST ALT Alkaline Phosphatase Troponin I Total Protein Albumin Foot X-Ray 11/27/18 15:19 IMPRESSION: No plain radiographic evidence for osteomyelitis. MPRESSION/RECOMMENDATION: 1. Coronary artery disease history of myocardial infarction 25 years ago. No anginal symptoms since a very long time. There is no acute EKG changes, and there is no evidence of non-ST elevation [place]. Will repeat EKG and troponin in the morning 2. Diabetes mellitus: Type II [id number]. Continue antidiabetic med ication and Accu-Cheks serially. 3. Peripheral vascular disease. 4. Status post amputation of the right foot. Stable 5. Dysphagia: Most likely there is a foreign body sensation due to the stretchi ng of the esophagus. If this continues the patient will have a swallow study. 6. Hyperlipidemia: Continue statin. Medications reviewed. Medical decision making is of moderate complexity. Management plan discussed with the hospitalist and the surgical list on the case. 40 minutes spent on this patient with more than 50% of time spent on direct patient care.
--- NOTE | 2018-11-29 23:18 | EKG REPORT ---
SEVERITY:- OTHERWISE NORMAL ECG - SINUS RHYTHM LOW VOLTAGE IN FRONTAL LEADS : Confirmed by: Krystyna Hamlin 29-Nov-2018 23:17:00
[2018-11-30] MEDS: OXYCODONE-ACETAMINOPHEN 5-325 MG TABLET PO PRN (04:08)
[2018-11-30] MEDS: KETOROLAC TROMETHAMINE INJ/PF 30 MG/1 ML SDV IV SCH ×3 (06:07→21:40)
[2018-11-30] MEDS: GABAPENTIN 300 MG CAPSULE PO SCH ×3 (06:07→21:39)
[2018-11-30 06:25] LABS: ABSOLUTE EOSINOPHILS # (AUTO) 0.3 10^3/uL (0.0-0.6); ABSOLUTE LYMPHOCYTES (AUTO) 1.2 10^3/uL (0.5-4.7); ABSOLUTE MONOCYTES (AUTO) 0.6 10^3/uL (0.1-1.4); ABSOLUTE NEUT (AUTO) 7.1 10^3/uL (1.7-8.2); BASOPHILS % (AUTO) 0.4 % (0-2); EOSINOPHILS % (AUTO) 3.5 % (0-6); HEMATOCRIT 27.6 % (37.9-51.0); HEMOGLOBIN 9.4 g/dL (13.5-17.0); LYMPHOCYTES % (AUTO) 13.2 % (13-45); MEAN CORPUSCULAR HEMOGLOBIN 30.5 pg (27.0-33.4); MEAN CORPUSCULAR HGB CONC 34.3 g/dL (32.0-36.0); MEAN CORPUSCULAR VOLUME 89 fl (80-97); MONOCYTES % (AUTO) 6.4 % (3-13); PLATELET COUNT 206 10^3/uL (150-450); RED CELL DISTRIBUTION WIDTH 13.2 % (11.5-14.0); SEGMENTED NEUTROPHILS % (AUTO) 76.5 % (42-78); TOTAL CELLS COUNTED % (AUTO) 100 %; WHITE BLOOD COUNT 9.2 10^3/uL (4.0-10.5)
[2018-11-30] MEDS: INSULIN LISPRO 100 UNIT/ML 3 ML VIAL SUBCUT SCH ×4 (08:53→21:45)
[2018-11-30] MEDS ORDERED: BENZOCAINE 20% AEROSOL SPRAY 60 GM TP PRN (09:04)
[2018-11-30] MEDS: FAMOTIDINE 20 MG TABLET PO SCH ×2 (10:29→21:39)
[2018-11-30] MEDS: DOCUSATE SODIUM 100 MG CAPSULE PO SCH ×2 (10:29→17:30)
[2018-11-30] MEDS: CEFEPIME 1 GM/D5W RTU 1 GM/50 ML RTUPB IV SCH ×2 (10:30→21:41)
--- NOTE | 2018-11-30 19:49 | PDOC PROGRESS REPORT ---
Subjective Progress Note for:: 11/30/18 Subjective:: MILD PAINS RIGHT BKA STUMP Reason For Visit: DM FOOT W PVD Physical Exam Vital Signs: Temp Pulse Resp BP Pulse Ox 98.5 F 80 15 133/64 H 100 11/30/18 15:54 11/30/18 15:54 11/30/18 15:54 11/30/18 15:54 11/30/18 15:54 Intake & Output 11/29/18 11/30/18 12/01/18 06:59 06:59 06:59 Intake Total 800 1550 787 Output Total 400 850 575 Balance 400 700 212 Weight 63.7 kg 62.7 kg Exam: Dressings changed. Stump looks clean and dry Results Laboratory Results: 11/30/18 05:42 11/29/18 03:59 11/30/18 05:42 WBC 9.2 RBC 3.10 L Hgb 9.4 L Hct 27.6 L MCV 89 MCH 30.5 MCHC 34.3 RDW 13.2 Plt Count 206 Seg Neutrophils % 76.5 Lymphocytes % 13.2 Monocytes % 6.4 Eosinophils % 3.5 Basophils % 0.4 Absolute Neutrophils 7.1 Absolute Lymphocytes 1.2 Absolute Monocytes 0.6 Absolute Eosinophils 0.3 Absolute Basophils 0.0 11/29/18 11/30/18 03:59 05:42 Troponin I 0.052 0.035 Impressions: Foot X-Ray 11/27/18 15:19 IMPRESSION: No plain radiographic evidence for osteomyelitis. Assessment & Plan - Diagnosis (1) Diabetic foot infection Is this a current diagnosis for this admission?: Yes (2) Peripheral vascular disease Is this a current diagnosis for this admission?: Yes (3) Type 2 diabetes mellitus Qualifiers: Diabetes mellitus [facility] insulin use: without director of operations support use Diabetes mellitus complication status: with skin complications Diabetes mellitus complication detail: with foot ulcer Qualified Code(s): E11.621 - Type 2 diabetes mellitus with foot ulcer; L97.509 - Non-pressure chronic ulcer of other part of unspecified foot with unspecified severity Is this a current diagnosis for this admission?: Yes - Time Time Spent with patient: 15-24 minutes - Inpatient Certification Medical Necessity: Need for IV Antibiotics, Risk of Complication if Not Cared For in Hospital - Plan Summary Plan Summary: Dressings changed Small amount of AKILA drainage. Left in place Continue Antibiotics
--- NOTE | 2018-11-30 19:53 | PDOC PROGRESS REPORT ---
Subjective Progress Note for:: 11/30/18 Subjective:: pains right BKA stump Reason For Visit: DM FOOT W PVD Physical Exam Vital Signs: Temp Pulse Resp BP Pulse Ox 98.5 F 80 15 133/64 H 100 11/30/18 15:54 11/30/18 15:54 11/30/18 15:54 11/30/18 15:54 11/30/18 15:54 Intake & Output 11/29/18 11/30/18 12/01/18 06:59 06:59 06:59 Intake Total 800 1550 787 Output Total 400 850 575 Balance 400 700 212 Weight 63.7 kg 62.7 kg Exam: Dressings removed. Wound looks clean and dry Results Laboratory Results: 11/30/18 05:42 11/29/18 03:59 11/30/18 05:42 WBC 9.2 RBC 3.10 L Hgb 9.4 L Hct 27.6 L MCV 89 MCH 30.5 MCHC 34.3 RDW 13.2 Plt Count 206 Seg Neutrophils % 76.5 Lymphocytes % 13.2 Monocytes % 6.4 Eosinophils % 3.5 Basophils % 0.4 Absolute Neutrophils 7.1 Absolute Lymphocytes 1.2 Absolute Monocytes 0.6 Absolute Eosinophils 0.3 Absolute Basophils 0.0 11/29/18 11/30/18 03:59 05:42 Troponin I 0.052 0.035 Impressions: Foot X-Ray 11/27/18 15:19 IMPRESSION: No plain radiographic evidence for osteomyelitis. Assessment & Plan - Diagnosis (1) Diabetic foot infection Is this a current diagnosis for this admission?: Yes (2) Peripheral vascular disease Is this a current diagnosis for this admission?: Yes (3) Type 2 diabetes mellitus Qualifiers: Diabetes mellitus adjunct faculty for medical terminology insulin use: without snf use Diabetes mellitus complication status: with skin complications Diabetes mellitus complication detail: with foot ulcer Qualified Code(s): E11.621 - Type 2 diabetes mellitus with foot ulcer; L97.509 - Non-pressure chronic ulcer of other part of unspecified foot with unspecified severity Is this a current diagnosis for this admission?: Yes - Time Time Spent with patient: 15-24 minutes - Inpatient Certification Medical Necessity: Need for IV Antibiotics, Risk of Complication if Not Cared For in Hospital - Plan Summary Plan Summary: Stump redressed and knee immobilizer placed back Continue IV antibiotics Possible removal of drain tomorrow
--- NOTE | 2018-11-30 21:12 | PDOC PROGRESS REPORT ---
Subjective Progress Note for:: 11/30/18 Subjective:: 73-year-old male with history of diabetes mellitus, hyperlipidemia, peripheral vascular disease admitted for a 9-week old nonhealing right fifth toe amputation site. 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 Surgical site is clean and intact. Wrapped with an qamar bandage and knee immobilizer. Plan for surgery to complete dressing change today. No major events during this hospitalization. Blood glucose and blood pressure are well controlled. Patient complains of dysphagia yesterday after swallowing large food bolus. Nursing staff reports the patient is able to take his PO medications today without difficulty. Patient is requesting to go to acute rehab. States he does not want to live with his daughter but his at home cannot care for him due to chronic health problems. Reason For Visit: DM FOOT W PVD Physical Exam Vital Signs: Temp Pulse Resp BP Pulse Ox 99.5 F 86 19 167/71 H 98 11/30/18 20:00 11/30/18 20:00 11/30/18 20:00 11/30/18 20:00 11/30/18 20:00 Intake & Output 11/29/18 11/30/18 12/01/18 06:59 06:59 06:59 Intake Total 800 1550 787 Output Total 400 850 575 Balance 400 700 212 Weight 63.7 kg 62.7 kg General appearance: PRESENT: no acute distress, thin Head exam: PRESENT: atraumatic, normocephalic Eye exam: PRESENT: conjunctiva pink, EOMI, PERRLA. ABSENT: scleral icterus Ear exam: PRESENT: normal external ear exam Mouth exam: PRESENT: moist, tongue midline Neck exam: PRESENT: full ROM. ABSENT: carotid bruit, JVD, lymphadenopathy, thyromegaly Respiratory exam: PRESENT: clear to auscultation kat, symmetrical, unlabored. ABSENT: rales, rhonchi, wheezes Cardiovascular exam: PRESENT: RRR. ABSENT: diastolic murmur, rubs, systolic murmur Pulses: PRESENT: normal radial pulses, normal dorsalis pedis pul - L FOOT ONLY. R BKA Vascular exam: PRESENT: normal capillary refill GI/Abdominal exam: PRESENT: normal bowel sounds, soft. ABSENT: distended, guarding, mass, organolmegaly, rebound, tenderness Rectal exam: PRESENT: deferred Extremities exam: ABSENT: calf tenderness, clubbing, full ROM - partial rom to RLE, pedal edema Musculoskeletal exam: PRESENT: deformity - R BKA. ABSENT: full ROM - partial rom to RLE Neurological exam: PRESENT: alert, awake, oriented to person, oriented to place, oriented to time, oriented to situation Psychiatric exam: PRESENT: appropriate affect, normal mood. ABSENT: homicidal ideation, suicidal ideation Skin exam: PRESENT: dry, intact, warm. ABSENT: cyanosis, rash Results Laboratory Results: 11/30/18 05:42 11/29/18 03:59 11/30/18 05:42 WBC 9.2 RBC 3.10 L Hgb 9.4 L Hct 27.6 L MCV 89 MCH 30.5 MCHC 34.3 RDW 13.2 Plt Count 206 Seg Neutrophils % 76.5 Lymphocytes % 13.2 Monocytes % 6.4 Eosinophils % 3.5 Basophils % 0.4 Absolute Neutrophils 7.1 Absolute Lymphocytes 1.2 Absolute Monocytes 0.6 Absolute Eosinophils 0.3 Absolute Basophils 0.0 11/29/18 11/30/18 03:59 05:42 Troponin I 0.052 0.035 Impressions: Foot X-Ray 11/27/18 15:19 IMPRESSION: No plain radiographic evidence for osteomyelitis. Status: Imported from PACS Assessment and Plan - Diagnosis (1) Non-healing amputation site Is this a current diagnosis for this admission?: Yes Plan: Empiric antibiotics for coverage of MRSA and Pseudomonas, diabetic wounds tend to be polymicrobial Currently treated with only Cefepime, would recommend IV vancomycin for G+ coverage Blood cultures are pending. S/p R BKA 11/28/2018 (2) Coronary artery disease Qualifiers: Coronary Disease-Associated Artery/Lesion type: unspecified vessel or lesion type [place] vs. transplanted heart: unspecified whether [place] or transplanted heart Associated angina: with unspecified angina Qualified Code(s): I25.119 - Atherosclerotic heart disease of [place] coronary artery with unspecified angina pectoris Is this a current diagnosis for this admission?: Yes Plan: Without chest pain Continue statin (3) Dysphasia Is this a current diagnosis for this admission?: Yes Plan: Sensation of foreign body in the oropharynx with no respiratory symptoms patient being able to eat and drink without evidence of obstruction. Suspect oropharyngeal irritation by food bolus while eating yesterday Will offer PRN hurricane spray. If symptoms however persist will obtain a swallow study tomorrow morning. (4) History of ID (myocardial infarction) Is this a current diagnosis for this admission?: Yes Plan: Cardiology consult, appreciate expertise Requested cardiac clearance prior to surgery No complaints of chest pain. (5) Peripheral vascular disease Is this a current diagnosis for this admission?: Yes Plan: PMH PVD with right fifth toe infection status post amputation as an outpatient by the podiatry team admitted for nonhealing surgical site (6) Type 2 diabetes mellitus Qualifiers: Diabetes mellitus alf insulin use: without long term care administrator use Diabetes m ellitus complication status: with skin complications Diabetes mellitus co mplication detail: with foot ulcer Qualified Code(s): E11.621 - Type 2 diabetes mellitus with foot ulcer; L97.509 - Non-pressure chronic ulcer of other part of unspecified foot with unspecified severity Is this a current diagnosis for this admission?: Yes Plan: Hemoglobin A1c 6.7% Diabetic diet Accuchecks ACHS Humalog SSI - Time Time Spent with patient: 15-24 minutes Medications reviewed and adjusted accordingly: Yes Anticipated discharge: SNF Within: Other - when surgery deems the patient ready for discharge - Inpatient Certification Based on my medical assessment, after consideration of the patient's comorbidities, presenting symptoms, or acuity I expect that the services needed warrant INPATIENT care.: Yes I certify that my determination is in accordance with my understanding of Medicare's requirements for reasonable and necessary INPATIENT services [42 CFR 412.3e].: Yes Medical Necessity: Need for IV Antibiotics, Risk of Complication if Not Cared For in Hospital
[2018-11-30] MEDS: DIAZEPAM 5 MG TABLET PO SCH (21:39)
[2018-11-30] MEDS: SIMVASTATIN 40 MG TABLET PO SCH (21:39)
[2018-11-30] MEDS: INSULIN GLARGINE,HUM.REC.ANLOG 1,000 UNIT/10 ML VIAL SUBCUT SCH (21:45)
--- NOTE | 2018-11-30 22:08 | EKG REPORT ---
SEVERITY:- ABNORMAL ECG - SINUS RHYTHM PROBABLE INFERIOR INFARCT, AGE INDETERMINATE : Confirmed by: Krystyna Hamlin 30-Nov-2018 22:08:09
--- NOTE | 2018-11-30 23:02 | Progress Note ---
Provider Note Provider Note: CARDIOLOGY PROGRESS NOTE by Dr. Kandis Montana on 11/30/2018. SUBJECTIVE: The patient has no further dysphagia. He has no chest pain or discomfort. There is no PND orthopnea. There is no palpitations. There is no arrhythmia seen on the monitor. There is no anginal symptoms. There is no PND orthopnea. There is no dizziness near syncope or syncope. PHYSICAL EXAMINATION: The patient is well-built and well-nourished. At present in no acute distress. Selected Entries 11/30/18 07:44 Temperature 97.9 F Temperature Oral Source Pulse Rate 79 Respiratory 18 Rate Blood Pressure 95/44 L Blood Pressure 61 Mean BP Location Right Arm BP Position Supine O2 Sat by Pulse 93 Oximetry Oxygen Delivery Room Air Method HEAD: Is atraumatic normocephalic. EYES: Tubes are equal round regular reactive to light accommodation. Extraocular movements are normal. There is no conj unctival pallor there is no scleral icterus. EARS: Tympanic membranes are intact. External auditory canals are clear. NOSE: There is no deviated nasal septum. There is no inflammation of these mucous membrane. MOUTH: Mucous mornings of mouth are moist tongue is moist. There is no ulcers. THROAT: There is no redness of the oropharynx. There is no exudates. SKIN: There is no skin rashes or skin lesions. There is no particular ecchymosis. NECK: Supple. There is no JVD. Carotids are equal there is no bruit. There is no lymphadenopathy. There is no goiter. There is no accessory muscle respiration use. Trachea is central. LUNGS: Is clear to auscultation percussion without any rhonchi rales or wheezing. There is no chest wall tenderness. HEART: S1-S2 is heard. There is no S3 gallop. There is no S4 gallop. There is murmur of aortic sclerosis present. There is no significant mitral or tricuspid regurgitation murmur. There is no rub. ABDOMEN: Soft. There is nontender. There is no hepatospleno megaly. Bowel sounds are well heard. There is no guarding or rigidity. EXTREMITIES: Femorals are well felt bilaterally. Left is mildly reduced. There is no pedal edema. The right foot amputations dressing is dry.. TAP[employer] PR[employer]ED [employer] LAYOUT: The patient is conscious awake alert, oriented x3. There is no focal deficits. PSYCHIATRIC: The patient judgment and insight are intact. Her affect is normal. Labs- All tests 24 hr 11/30/18 11/30/18 11/30/18 05:42 05:42 07:45 WBC 9.2 RBC 3.10 L Hgb 9.4 L Hct 27.6 L MCV 89 MCH 30.5 MCHC 34.3 RDW 13.2 Plt Count 206 Seg Neutrophils % 76.5 Lymphocytes % 13.2 Monocytes % 6.4 Eosinophils % 3.5 Basophils % 0.4 Absolute Neutrophils 7.1 Absolute Lymphocytes 1.2 Absolute Monocytes 0.6 Absolute Eosinophils 0.3 Absolute Basophils 0.0 POC Glucose 216 H Troponin I 0.035 11/30/18 11/30/18 11/30/18 10:49 15:56 21:20 WBC RBC Hgb Hct MCV MCH MCHC RDW Plt Count Seg Neutrophils % Lymphocytes % Monocytes % Eosinophils % Basophils % Absolute Neutrophils Absolute Lymphocytes Absolute Monocytes Absolute Eosinophils Absolute Basophils POC Glucose 167 H 225 H 161 H Troponin I Foot X-Ray 11/27/18 15:19 IMPRESSION: No plain radiographic evidence for osteomyelitis. EKG: Shows no acute changes. MPRESSION/RECOMMENDATION: 1. Coronary artery disease history of myocardial infarction 25 years ago. No anginal symptoms since a very long time. There is no acute EKG changes, and there is no evidence of non-ST elevation ME. Will repeat EKG and troponin in the morning 2. Diabetes mellitus: Type II [id number]. Continue antidiabetic medication and Accu-Cheks serially. 3. Peripheral vascular disease. 4. Status post amputation of the right foot. Stable 5. Dysphagia: Most likely there is a foreign body sensation due to the stretching of the esophagus. This has resolved. 6. Hyperlipidemia: Continue statin. Medications reviewed. Medical decision making is of moderate complexity. Management plan discussed with the hospitalist and the surgical list on the case. 40 minutes spent on this patient with more than 50% of time spent on direct patient care. The patient's cardiac status is stable. Will sign off the case.
[2018-12-01] MEDS: GABAPENTIN 300 MG CAPSULE PO SCH ×3 (05:24→21:50)
[2018-12-01] MEDS: KETOROLAC TROMETHAMINE INJ/PF 30 MG/1 ML SDV IV SCH ×3 (05:24→21:50)
[2018-12-01] MEDS: INSULIN LISPRO 100 UNIT/ML 3 ML VIAL SUBCUT SCH ×4 (08:36→21:51)
--- NOTE | 2018-12-01 09:53 | PDOC PROGRESS REPORT ---
Subjective Progress Note for:: 12/01/18 Subjective:: Feels well. No further dysphasia. Reason For Visit: DM FOOT W PVD Physical Exam Vital Signs: Temp Pulse Resp BP Pulse Ox 99.7 F 95 18 130/53 H 93 11/30/18 23:16 11/30/18 23:16 11/30/18 23:16 11/30/18 23:16 11/30/18 23:16 Intake & Output 11/30/18 12/01/18 12/02/18 06:59 06:59 06:59 Intake Total 1550 1387 Output Total 850 1275 Balance 700 112 Weight 62.7 kg 62.7 kg General appearance: PRESENT: no acute distress, cooperative Respiratory exam: PRESENT: clear to auscultation kat Cardiovascular exam: PRESENT: RRR GI/Abdominal exam: PRESENT: other - Soft, nondistended, nontender to palpation. Extremities exam: PRESENT: other - Stump wound is clean dry and intact with ronald. Drain output is serosanguineous. Results Laboratory Results: 11/30/18 05:42 11/29/18 03:59 11/29/18 11/30/18 03:59 05:42 Troponin I 0.052 0.035 Impressions: Foot X-Ray 11/27/18 15:19 IMPRESSION: No plain radiographic evidence for osteomyelitis. Assessment & Plan - Diagnosis (1) Diabetic foot infection Is this a current diagnosis for this admission?: Yes Plan: Status post below the knee amputation. Patient looks good postoperatively. We will DC his drain. Will get discharge planning to evaluate patient for placement. (2) Dysphasia Is this a current diagnosis for this admission?: Yes
[2018-12-01] MEDS: FAMOTIDINE 20 MG TABLET PO SCH ×2 (10:15→21:50)
[2018-12-01] MEDS: DOCUSATE SODIUM 100 MG CAPSULE PO SCH ×2 (10:15→17:47)
[2018-12-01] MEDS: CEFEPIME 1 GM/D5W RTU 1 GM/50 ML RTUPB IV SCH ×2 (10:17→21:52)
--- NOTE | 2018-12-01 12:05 | Physical Med & Rehab Consult ---
Consultation Consult Date: 12/01/18 Provider Consulted: MIMA HERNANDEZ Consult reason:: Elevation for admission to acute inpatient rehabilitation History of Present Illness Admission Date/PCP: 11/27/18 21:16 EL ARELLANO MD Patient complains of: Right foot and ankle phantom sensation History of Present Illness: LEE IVEY is a 73-year-old male with past medical history of myocardial infarction in 1984, peripheral vascular disease, diabetes mellitus type 2, hype rlipidemia, and right fifth toe amputation admitted to [facility] on 11/27/2018 with nonhealing wound at the right fifth toe amputation surgical site following 9 weeks of outpatient wound care. Patient was evaluated by cardiology and hospitalist medicine for preoperative clearance due to his past medical history, and the patient ultimately underwent right below the knee amputation on 11/28/[address] Manav Vega of general surgery. Wound culture grew MRSA. Postoperative course included acute blood loss anemia not requiring blood transfusion as well as an episode of dysphagia of unclear etiology that resolved within 1 day. Physical medicine and rehabilitation consultation was requested to evaluate the patient for admission to acute inpatient rehabilitation. Today, the patient was seen and examined with his nurse at bedside. He states that he feels well overall and he does admit to phantom sensation but not into him pain. He has minimal surgical site pain. His last bowel movement was the day of surgery, and he denies trouble with urination. Past Medical History Cardiac Medical History: Reports: Myocardial Infarction - 1984, Peripheral Vascular Disease Denies: Hypertension Pulmonary Medical History: Reports: None Denies: Asthma EENT Medical History: Reports: None Neurological Medical History: Reports: None Denies: Seizures Endocrine Medical History: Reports: Diabetes Mellitus Type 2 Renal/ Medical History: Reports: None Malignancy Medical History: Reports: None GI Medical History: Reports: None Denies: Hepatitis, Hiatal Hernia Musculoskeltal Medical History: Reports: None Skin Medical History: Reports: None Psychiatric Medical History: Reports: None, Depression Hematology: Denies: Anemia, Sickle Cell Disease Past Surgical History Past Surgical History: Reports: Orthopedic Surgery - 5th toe amputation Denies: Pacemaker Social History Lives with: Family Smoking Status: Former Smoker Number of Years Smokin Last Time Smoked: over 40 years ago Frequency of Alcohol Use: None Hx Recreational Drug Use: Yes Drugs: Marijuana Hx Prescription Drug Abuse: No Past Social History Note: Lee Ivey lives with his , but she has multiple medical issues of her own and she is unable to provide any assistance upon hospital discharge. Therefore, the patient will be discharging to his daughter's home, which is 2 levels with 3 steps to enter. The patient does have a temporary ramp that he can install to have access to the home and there is a chairlift to have access to the second floor. He denies smoking, drinking alcohol, and using drugs. Prior Functional Status: Active and independent with mobility and all ADLs. Ambulates without an assist device. Current Functional Status: Per therapy notes, the patient currently requires contact guard assistance for bed mobility, contact-guard assistance for sit to stand transfers, and contact-guard assistance for ambulation of 15 feet x 6 in the room with a rolling walker. He also requires assistance with activities of daily living according to his nurse. Occupational therapy evaluation has been ordered. - Advance Directive Resuscitation Status: Full Code Family History Family History: Hypertension Parental Family History Reviewed: Yes Children Family History Reviewed: Yes Sibling(s) Family History Reviewed.: NA Medication/Allergy Home Medications: Glimepiride [Amaryl 4 mg Tablet] 4 mg PO BID 11/28/18 Metformin HCl [Metformin HCl ER] 250 mg PO BID 11/28/18 Pentoxifylline [Trental 400 mg Tablet.sa] 400 mg PO TID 11/28/18 Simvastatin [Zocor 40 mg Tablet] 40 mg PO QHS 11/28/18 Allergies/Adverse Reactions: No Known Allergies Allergy (Verified 11/27/18 14:12) Review of Systems Review of Systems: Constitutional: No fevers, chills, sweats, weight loss Eye: He has a cataract in the right eye that he plans to have removed in the near future. ENMT: No ear pain, nasal congestion, sore throat Respiratory: No shortness of breath, cough, sputum production Cardiovascular: No chest pain, palpitations, syncope Gastrointestinal: No nausea, vomiting, diarrhea, abdominal pain Genitourinary: No hematuria, dysuria, flank or suprapubic pain Odin/Lymph: Negative for bruising tendency, swollen lymph glands Endocrine: Negative for excessive thirst, excessive hunger, extreme fatigue Musculoskeletal: Status post right below the knee amputation. Positive for phantom sensation. Positive for minimal surgical site pain. Integumentary: No rash, pruritus, abrasions Neurologic: No headaches, focal weakness, numbness, speech problems. Psychiatric: No anxiety, depression Physical Exam Vital Signs: Temp Pulse Resp BP Pulse Ox 97.5 F 81 18 127/46 H 96 12/01/18 07:21 12/01/18 10:14 12/01/18 10:14 12/01/18 07:21 12/01/18 10:14 Intake & Output 11/30/18 12/01/18 12/02/18 06:59 06:59 06:59 Intake Total 1550 1387 Output Total 850 1275 Balance 700 112 Weight 62.7 kg 62.7 kg Exam: General: Awake and Alert. No acute distress. Resting comfortably in bed. Head: Normocephalic. Atraumatic. Eyes: Pupils equal and round. EOMI. Sclera white. Ears: No drainage noted. Nose: Nares normal & without exudate. Oropharynx: Moist mucous membranes. Neck: Supple movements. Cardiovascular: Regular rate & rhythm. No murmurs, rubs, or gallops appreciated. Pulmonary: Lungs clear to auscultation bilaterally. No increased work of breathing. Gastrointestinal: Abdomen soft, non-tender, non-distended. Normoactive bowel sounds. Skin: Texture and turgor normal. Warm and dry. Right below the knee amputation surgical site is well approximated with ronald in place and no erythema or drainage. Psychiatric: Judgement and insight appear to be good. Patient is oriented to date, location, and situation. Affect appropriate. Extremities: Status post right below the knee amputation. Neurological: CN III-XII grossly intact. Sensation to light touch is grossly intact. Tone is normal. Speech is fluent with good content and without dysarthria. Muscle Strength: Full 5/5 strength in all available major muscle groups of the 4 extremities, except 2/5 strength of right knee flexors/extensors. Results Laboratory Results: 11/30/18 05:42 11/29/18 03:59 11/29/18 11/30/18 03:59 05:42 Troponin I 0.052 0.035 Impressions: Foot X-Ray 11/27/18 15:19 IMPRESSION: No plain radiographic evidence for osteomyelitis. Assessment and Plan - Plan Summary Plan Summary: 73-year-old male with diabetic foot infection status post right below the knee amputation. 1. Gait and ADL Dysfunction secondary to diabetic foot infection status post right below the knee amputation. - Continue PT and OT to maximize mobility, safety, endurance, and self-care. 2. Diabetic foot infection status post right below the knee amputation - Performed on 11/28/[address] Manav Vega of general surgery - Nonweightbearing on the right lower extremity - Surgical wound care and pain control per general surgery Recommend continued PT & OT for pre-prosthetic training including: - ROM of joints proximal to amputation (avoid pillow behind knee to prevent knee flexion contracture) - Strengthening gluteus mariann & medius as well as hamstrings & quads - Mobility, transfers, and ADLs. - Consult [employer] for evaluation and teaching. Post-Prosthetic Training will include: - ROM of joints proximal to amputation - strengthen gluteus mariann & medius as well as hamstrings & quads - mobility, transfers, ADLS - gait with prosthesis on all surfaces - improving balance on all surfaces - ascending/descending stairs, curbs & ramps - prosthetic & skin care - proper donning & doffing of prosthesis 3. Diabetes mellitus type 2 - Continue carbohydrate controlled diet, insulin therapy, Accu-Cheks, sliding scale insulin, and resumption of oral hypoglycemics when appropriate per hospitalist medicine 4. Hyperlipidemia with history of IA - Continue simvastatin - Evaluated by cardiology with no further recommendations 5. Acute blood loss anemia - Secondary to recent operative procedure - Currently asymptomatic - Continue to follow H&H and transfuse as necessary 6. Disposition - Based on the patient's diagnosis, medical co-morbidities, and current functional status, he is a good candidate for acute inpatient rehabilitation as he would benefit from 3 hours per day of intensive therapies in at least 2 disciplines under the close medical supervision of a physician. The patient is expected to make significant gains in a relatively short period of time to the point that he can safely be discharged home with supervision and assistance from family. Insurance preauthorization is required and will be requested. Barring any unforeseen events or complications, there is a plan to admit the patient to acute inpatient rehabilitation at [facility] in [place] likely early next week. This case was discussed with the patient's acute care therapists, nurse on the floor, discharge planners, and office coordinator at [facility]. Thank you for allowing us to participate in the care of this patient. Please call with any questions. A total of 75 minutes was spent on [id number] communication with the patient and coordination of care.
[2018-12-01] MEDS: DIAZEPAM 5 MG TABLET PO SCH (21:50)
[2018-12-01] MEDS: SIMVASTATIN 40 MG TABLET PO SCH (21:50)
[2018-12-01] MEDS: INSULIN GLARGINE,HUM.REC.ANLOG 1,000 UNIT/10 ML VIAL SUBCUT SCH (21:51)
--- NOTE | 2018-12-01 22:00 | PDOC PROGRESS REPORT ---
Subjective Progress Note for:: 12/01/18 Subjective:: 73-year-old male with history of diabetes mellitus, hyperlipidemia, peripheral vascular disease admitted for a 9-week old nonhealing right fifth toe amputation site. 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 Surgical site is clean and intact. Wrapped with an qamar bandage and knee immobilizer. Plan for surgery to complete dressing change today. No major events during this hospitalization. Blood glucose and blood pressure are well controlled. Patient is requesting to go to acute rehab. States he does not want to live with his daughter but his at home cannot care for him due to chronic health problems. Discharge planning aware. Dr. Hurley at bedside today to evlauate if patient is appropriate to go to [facility] Reason For Visit: DM FOOT W PVD Physical Exam Vital Signs: Temp Pulse Resp BP Pulse Ox 98.3 F 79 18 132/56 H 97 12/01/18 19:29 12/01/18 19:29 12/01/18 19:29 12/01/18 19:29 12/01/18 19:29 Intake & Output 11/30/18 12/01/18 12/02/18 06:59 06:59 06:59 Intake Total 1550 1387 864 Output Total 850 1275 1015 Balance 700 112 -151 Weight 62.7 kg 62.7 kg General appearance: PRESENT: no acute distress, thin Head exam: PRESENT: atraumatic, normocephalic Eye exam: PRESENT: conjunctiva pink, EOMI, PERRLA. ABSENT: scleral icterus Ear exam: PRESENT: normal external ear exam Mouth exam: PRESENT: moist, tongue midline Teeth exam: PRESENT: edentulous, poor dentation Neck exam: ABSENT: carotid bruit, JVD, lymphadenopathy, thyromegaly Respiratory exam: PRESENT: clear to auscultation kat, symmetrical, unlabored. ABSENT: rales, rhonchi, wheezes Cardiovascular exam: PRESENT: RRR. ABSENT: diastolic murmur, rubs, systolic murmur Pulses: PRESENT: normal radial pulses Vascular exam: PRESENT: normal capillary refill GI/Abdominal exam: PRESENT: normal bowel sounds, soft. ABSENT: distended, guarding, mass, organolmegaly, rebound, tenderness Rectal exam: PRESENT: deferred Extremities exam: PRESENT: full ROM. ABSENT: calf tenderness, clubbing, pedal edema Musculoskeletal exam: PRESENT: full ROM Neurological exam: PRESENT: alert, awake, oriented to person, oriented to place, oriented to time, oriented to situation Psychiatric exam: PRESENT: appropriate affect, normal mood. ABSENT: homicidal ideation, suicidal ideation Skin exam: PRESENT: dry, intact, warm, other - surgical site wrapped in dressing, qamar bandage and knee immobilizer. ABSENT: cyanosis, rash Results Laboratory Results: 11/30/18 05:42 11/29/18 03:59 11/29/18 11/30/18 03:59 05:42 Troponin I 0.052 0.035 Impressions: Foot X-Ray 11/27/18 15:19 IMPRESSION: No plain radiographic evidence for osteomyelitis. Status: Imported from PACS Assessment and Plan - Diagnosis (1) Non-healing amputation site Is this a current diagnosis for this admission?: Yes Plan: Empiric antibiotics for coverage of MRSA and Pseudomonas, diabetic wounds tend to be polymicrobial Currently treated with only Cefepime, would recommend IV vancomycin for G+ coverage Blood cultures are pending. S/p R BKA 11/28/2018 (2) Coronary artery disease Qualifiers: Coronary Disease-Associated Artery/Lesion type: unspecified vessel or lesion type [place] vs. transplanted heart: unspecified whether [place] or transplanted heart Associated angina: with unspecified angina Qualified Code(s): I25.119 - Atherosclerotic heart disease of [place] coronary artery with unspecified ang oscar pectoris Is this a current diagnosis for this admission?: Yes Plan: Without chest pain Continue statin (3) Dysphasia Is this a current diagnosis for this admission?: Yes Plan: Sensation of foreign body in the oropharynx with no respiratory symptoms patient being able to eat and drink without evidence of obstruction. Suspect oropharyngeal irritation by food bolus while eating yesterday Will offer PRN hurricane spray. If symptoms however persist will obtain a swallow study (4) History of [place] (myocardial infarction) Is this a current diagnosis for this admission?: Yes Plan: Cardiology consult, appreciate expertise Requested cardiac clearance prior to surgery No complaints of chest pain. (5) Peripheral vascular disease Is this a current diagnosis for this admission?: Yes Plan: PMH PVD with right fifth toe infection status post amputation as an outpatient by the podiatry team admitted for nonhealing surgical site (6) Type 2 diabetes mellitus Qualifiers: Diabetes mellitus fdc insulin use: without fdc use Diabetes mellitus complication status: with skin complications Diabetes mellitus complication detail: with foot ulcer Qualified Code(s): E11.621 - Type 2 diabetes mellitus with foot ulcer; L97.509 - Non-pressure chronic ulcer of other part of unspecified foot with unspecified severity Is this a current diagnosis for this admission?: Yes Plan: Hemoglobin A1c 6.7% Diabetic diet Accuchecks ACHS Humalog SSI - Time Time Spent with patient: 15-24 minutes Medications reviewed and adjusted accordingly: Yes Anticipated discharge: SNF Within: within 48 hours - Inpatient Certification Based on my medical assessment, after consideration of the patient's comorbidities, presenting symptoms, or acuity I expect that the services needed warrant INPATIENT care.: Yes I certify that my determination is in accordance with my understanding of Medicare's requirements for reasonable and necessary INPATIENT services [42 CFR 412.3e].: Yes Medical Necessity: Need for IV Antibiotics, Need for Surgery, Risk of Complication if Not Cared For in Hospital
[2018-12-02] MEDS: KETOROLAC TROMETHAMINE INJ/PF 30 MG/1 ML SDV IV SCH ×3 (06:05→22:34)
[2018-12-02] MEDS: GABAPENTIN 300 MG CAPSULE PO SCH ×3 (06:06→22:34)
[2018-12-02] MEDS: INSULIN LISPRO 100 UNIT/ML 3 ML VIAL SUBCUT SCH ×4 (08:45→22:35)
--- NOTE | 2018-12-02 09:10 | TRANSFER SUMMARY E ---
Transfer Summary NAME: LEE IVEY : 1945 AGE: 73Y ADMITTED: 11/27/2018 TRANSFERRED: 12/02/2018 PROCEDURE DONE: Right [id number] amputation on 11/28/2018. SURGEON: Manav Vega M.D. HOSPITAL COURSE: This is a 73-year-old male diabetic with right chronic foot infection. The patient underwent right [id number]-turp amputation on 11/28/2018. Postoperatively the patient did quite well. The drain was removed on 12/01/2018. The stump looked good. The patient has a knee immobilizer which he has to use at least for the next 1 to 2 weeks prior to placement of prosthesis. The patient was subsequently discharged improved on 12/02/2018 with the above final diagnosis. The patient does not need IV antibiotics at this time. The patient is to be followed in the Surgical Clinic in about 3 weeks for removal of ronald. DICTATING PHYSICIAN: NEDRA RAINEY M.D. [id number] PHY#: [id number] ID: [id number] JOB#: [id number] ACCT: [id number] cc:NEDRA RAINEY M.D. >
[2018-12-02] MEDS: DOCUSATE SODIUM 100 MG CAPSULE PO SCH ×2 (10:33→17:17)
[2018-12-02] MEDS: CEFEPIME 1 GM/D5W RTU 1 GM/50 ML RTUPB IV SCH ×2 (10:33→22:35)
[2018-12-02] MEDS: FAMOTIDINE 20 MG TABLET PO SCH ×2 (10:33→22:34)
[2018-12-02] MEDS ORDERED: INSULIN GLARGINE,HUM.REC.ANLOG 1,000 UNIT/10 ML VIAL SUBCUT SCH (22:00)
--- NOTE | 2018-12-02 22:04 | PDOC PROGRESS REPORT ---
Subjective Progress Note for:: 12/02/18 Subjective:: 73-year-old male with history of diabetes mellitus, hyperlipidemia, peripheral vascular disease admitted for a 9-week old nonhealing right fifth toe amputation site. 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 Surgical site is clean and intact. Wrapped with an qamar bandage and knee immobilizer. Plan for surgery to complete dressing change today. No major events during this hospitalization. Blood glucose moderately controlled, frequently > 200 today. Increased Lantus based on 24 hour insulin usage [facility] Will hopefully discharge soon. Reason For Visit: DM FOOT W PVD Physical Exam Vital Signs: Temp Pulse Resp BP Pulse Ox 98.5 F 78 18 146/68 H 99 12/02/18 20:09 12/02/18 20:09 12/02/18 20:09 12/02/18 20:09 12/02/18 20:09 Intake & Output 12/01/18 12/02/18 12/03/18 06:59 06:59 06:59 Intake Total 1387 1154 650 Output Total 1275 1515 425 Balance 112 -361 225 Weight 62.7 kg 63.4 kg General appearance: PRESENT: no acute distress, thin Head exam: PRESENT: atraumatic, normocephalic Eye exam: PRESENT: conjunctiva pink, EOMI, PERRLA. ABSENT: scleral icterus Ear exam: PRESENT: normal external ear exam Mouth exam: PRESENT: moist, tongue midline Neck exam: PRESENT: full ROM. ABSENT: carotid bruit, JVD, lymphadenopathy, thyromegaly Respiratory exam: PRESENT: clear to auscultation kat, symmetrical, unlabored. ABSENT: rales, rhonchi, wheezes Cardiovascular exam: PRESENT: RRR. ABSENT: diastolic murmur, rubs, systolic murmur Pulses: PRESENT: normal radial pulses, normal dorsalis pedis pul - left foot only Vascular exam: PRESENT: normal capillary refill GI/Abdominal exam: PRESENT: normal bowel sounds, soft. ABSENT: distended, guarding, mass, organolmegaly, rebound, tenderness Rectal exam: PRESENT: deferred Extremities exam: PRESENT: full ROM. ABSENT: calf tenderness, clubbing, pedal edema Musculoskeletal exam: PRESENT: deformity - R BKA, full ROM. ABSENT: ambulatory Neurological exam: PRESENT: alert, awake, oriented to person, oriented to place, oriented to time, oriented to situation Psychiatric exam: PRESENT: appropriate affect, normal mood Skin exam: PRESENT: dry, intact, warm. ABSENT: cyanosis, rash Results Laboratory Results: 11/30/18 05:42 11/29/18 03:59 11/27/18 17:10 Blood Blood Culture - Final NO GROWTH IN 5 DAYS 11/27/18 16:09 Blood Blood Culture - Final NO GROWTH IN 5 DAYS 11/29/18 11/30/18 03:59 05:42 Troponin I 0.052 0.035 Impressions: Foot X-Ray 11/27/18 15:19 IMPRESSION: No plain radiographic evidence for osteomyelitis. Status: Imported from PACS Assessment and Plan - Diagnosis (1) Non-healing amputation site Is this a current diagnosis for this admission?: Yes Plan: Empiric antibiotics for coverage of MRSA and Pseudomonas, diabetic wounds tend t o be polymicrobial Currently treated with only Cefepime, would recommend IV vancomycin for G+ coverage Blood cultures are pending. S/p R BKA 11/28/2018 (2) Coronary artery disease Qualifiers: Coronary Disease-Associated Artery/Lesion type: unspecified vessel or lesion type [place] vs. transplanted heart: unspecified whether [place] or transplanted heart Associated angina: with unspecified angina Qualified Code(s): I25.119 - Atherosclerotic heart disease of [place] coronary artery with unspecified angina pectoris Is this a current diagnosis for this admission?: Yes Plan: Without chest pain Continue statin (3) Dysphasia Is this a current diagnosis for this admission?: Yes Plan: Sensation of foreign body in the oropharynx with no respiratory symptoms patient being able to eat and drink without evidence of obstruction. Suspect oropharyngeal irritation by food bolus while eating yesterday Will offer PRN hurricane spray. If symptoms however persist will obtain a swallow study (4) History of [place] (myocardial infarction) Is this a current diagnosis for this admission?: Yes Plan: Cardiology consult, appreciate expertise Requested cardiac clearance prior to surgery No complaints of chest pain. (5) Peripheral vascular disease Is this a current diagnosis for this admission?: Yes Plan: PMH PVD with right fifth toe infection status post amputation as an outpatient by the podiatry team admitted for nonhealing surgical site (6) Type 2 diabetes mellitus Qualifiers: Diabetes mellitus detention insulin use: without mucking machine operator use Diabetes mellitus complication status: with skin complications Diabetes mellitus complication detail: with foot ulcer Qualified Code(s): E11.621 - Type 2 diabetes mellitus with foot ulcer; L97.509 - Non-pressure chronic ulcer of other part of unspecified foot with unspecified severity Is this a current diagnosis for this admission?: Yes Plan: Hemoglobin A1c 6.7% Diabetic diet Accuchecks ACHS Humalog SSI Increased Lantus from 8-->10units daily - Time Time Spent with patient: 15-24 minutes Medications reviewed and adjusted accordingly: Yes Anticipated discharge: SNF Within: within 72 hours - Inpatient Certification Based on my medical assessment, after consideration of the patient's comorbidities, presenting symptoms, or acuity I expect that the services needed warrant INPATIENT care.: Yes I certify that my determination is in accordance with my understanding of Medicare's requirements for reasonable and necessary INPATIENT services [42 CFR 412.3e].: Yes Medical Necessity: Need for IV Antibiotics
[2018-12-02] MEDS: DIAZEPAM 5 MG TABLET PO SCH (22:34)
[2018-12-02] MEDS: SIMVASTATIN 40 MG TABLET PO SCH (22:34)
[2018-12-03] MEDS: GABAPENTIN 300 MG CAPSULE PO SCH ×3 (06:22→22:48)
[2018-12-03] MEDS: KETOROLAC TROMETHAMINE INJ/PF 30 MG/1 ML SDV IV SCH ×2 (06:22→13:46)
[2018-12-03] MEDS: FAMOTIDINE 20 MG TABLET PO SCH ×2 (09:07→22:48)
[2018-12-03] MEDS: DOCUSATE SODIUM 100 MG CAPSULE PO SCH ×2 (09:07→17:02)
[2018-12-03] MEDS: CEFEPIME 1 GM/D5W RTU 1 GM/50 ML RTUPB IV SCH ×2 (09:08→22:46)
[2018-12-03] MEDS: INSULIN LISPRO 100 UNIT/ML 3 ML VIAL SUBCUT SCH ×4 (09:08→22:47)
--- NOTE | 2018-12-03 13:17 | PDOC PROGRESS REPORT ---
Subjective Progress Note for:: 12/03/18 Subjective:: Right BKA pains Reason For Visit: DM FOOT W PVD Physical Exam Vital Signs: Temp Pulse Resp BP Pulse Ox 98.1 F 76 18 148/68 H 95 12/03/18 11:21 12/03/18 11:21 12/03/18 11:21 12/03/18 11:21 12/03/18 11:21 Intake & Output 12/02/18 12/03/18 12/04/18 06:59 06:59 06:59 Intake Total 1154 700 Output Total 1515 650 Balance -361 50 Weight 63.4 kg 63.4 kg Exam: BKA stump looks clean with minimal serosanguinous drainage on lateral side. Redressed Results Laboratory Results: 11/30/18 05:42 11/29/18 03:59 11/27/18 17:10 Blood Blood Culture - Final NO GROWTH IN 5 DAYS 11/27/18 16:09 Blood Blood Culture - Final NO GROWTH IN 5 DAYS 11/29/18 11/30/18 03:59 05:42 Troponin I 0.052 0.035 Impressions: Foot X-Ray 11/27/18 15:19 IMPRESSION: No plain radiographic evidence for osteomyelitis. Assessment & Plan - Diagnosis (1) Diabetic foot infection Is this a current diagnosis for this admission?: Yes (2) Peripheral vascular disease Is this a current diagnosis for this admission?: Yes (3) Type 2 diabetes mellitus Qualifiers: Diabetes mellitus detention insulin use: without termite helper use Diabetes mellitus complication status: with skin complications Diabetes mellitus complication detail: with foot ulcer Qualified Code(s): E11.621 - Type 2 diabetes mellitus with foot ulcer; L97.509 - Non-pressure chronic ulcer of other part of unspecified foot with unspecified severity Is this a current diagnosis for this admission?: Yes - Time Time Spent with patient: 15-24 minutes - Inpatient Certification Medical Necessity: Need for IV Antibiotics - Plan Summary Plan Summary: Continue IV antibiotics today then stop Awaiting transfer to rehab F/U surgical clinic in 3 weeks for removal of ronald and start protocol for prosthesis
--- NOTE | 2018-12-03 21:00 | PDOC PROGRESS REPORT ---
Subjective Progress Note for:: 12/03/18 Subjective:: 73-year-old male with history of diabetes mellitus, hyperlipidemia, peripheral vascular disease admitted for a 9-week old nonhealing right fifth toe amputation site. 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 Surgical site is clean and intact. Wrapped with an qamar bandage and knee immobilizer. Plan for surgery to complete dressing change today. No major events during this hospitalization. Blood glucose moderately controlled, frequently > 200 today. Increased Lantus again (10-->15 units) based on 24 hour insulin usage [facility] Waiting for insurance approval. Will hopefully discharge soon. Reason For Visit: DM FOOT W PVD Physical Exam Vital Signs: Temp Pulse Resp BP Pulse Ox 98.4 F 82 17 143/57 H 93 12/03/18 19:29 12/03/18 19:29 12/03/18 19:29 12/03/18 19:29 12/03/18 19:29 Intake & Output 12/02/18 12/03/18 12/04/18 06:59 06:59 06:59 Intake Total 1154 700 730 Output Total 1515 650 500 Balance -361 50 230 Weight 63.4 kg 63.4 kg General appearance: PRESENT: no acute distress, thin Head exam: PRESENT: atraumatic, normocephalic Eye exam: PRESENT: conjunctiva pink, EOMI, PERRLA. ABSENT: scleral icterus Ear exam: PRESENT: normal external ear exam Mouth exam: PRESENT: moist, tongue midline Teeth exam: PRESENT: poor dentation Neck exam: ABSENT: carotid bruit, JVD, lymphadenopathy, thyromegaly Respiratory exam: PRESENT: clear to auscultation kat, symmetrical, unlabored. ABSENT: rales, rhonchi, wheezes Cardiovascular exam: PRESENT: RRR. ABSENT: diastolic murmur, rubs, systolic murmur Pulses: PRESENT: normal radial pulses, normal dorsalis pedis pul Vascular exam: PRESENT: normal capillary refill GI/Abdominal exam: PRESENT: normal bowel sounds, soft. ABSENT: distended, guarding, mass, organolmegaly, rebound, tenderness Rectal exam: PRESENT: deferred Extremities exam: PRESENT: full ROM. ABSENT: calf tenderness, clubbing, pedal edema Musculoskeletal exam: PRESENT: deformity - R BKA. ABSENT: ambulatory Neurological exam: PRESENT: alert, awake, oriented to person, oriented to place, oriented to time, oriented to situation Psychiatric exam: PRESENT: appropriate affect, normal mood Skin exam: PRESENT: dry, intact, warm. ABSENT: cyanosis, rash Results Laboratory Results: 11/30/18 05:42 11/29/18 03:59 11/27/18 17:10 Blood Blood Culture - Final NO GROWTH IN 5 DAYS 11/29/18 11/30/18 03:59 05:42 Troponin I 0.052 0.035 Impressions: Foot X-Ray 11/27/18 15:19 IMPRESSION: No plain radiographic evidence for osteomyelitis. Status: Imported from PACS Assessment and Plan - Diagnosis (1) Non-healing amputation site Is this a current diagnosis for this admission?: Yes Plan: Empiric antibiotics for coverage of MRSA and Pseudomonas, diabetic wounds tend to be polymicrobial Currently treated with only Cefepime, would recommend IV vancomycin for G+ coverage Blood cultures are pending. S/p R BKA 11/28/2018 (2) Coronary artery disease Qualifiers: Coronary Disease-Associated Artery/Lesion type: unspecified vessel or lesion type [place] vs. transplanted heart: unspecified whether [place] or transplanted heart Associated angina: with unspecified angina Qualified Code(s): I25.119 - Atherosclerotic heart disease of [place] coronary artery with unspecified angina pectoris Is this a current diagnosis for this admission?: Yes Plan: Without chest pain Continue statin (3) Dysphasia Is this a current diagnosis for this admission?: Yes Plan: Resolved Tolerating PO diet Sensation of foreign body in the oropharynx with no respiratory symptoms patient being able to eat and drink without evidence of obstruction. Suspect oropharyngeal irritation by food bolus while eating yesterday Will offer PRN hurricane spray. If symptoms however persist will obtain a swallow study (4) History of [place] (myocardial infarction) Is this a current diagnosis for this admission?: Yes Plan: Cardiology consult, appreciate expertise Requested cardiac clearance prior to surgery No complaints of chest pain. 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 use Diabetes mellitus complication status: with skin complications Diabetes mellitus complication detail: with foot ulcer Qualified Code(s): E11.621 - Type 2 diabetes mellitus with foot ulcer; L97.509 - Non-pressure chronic ulcer of other part of unspecified foot with unspecified severity Is this a current diagnosis for this admission?: Yes Plan: Hemoglobin A1c 6.7% Diabetic diet Accuchecks ACHS Humalog SSI Increased Lantus from 10-->15 units daily - Time Time Spent with patient: 15-24 minutes Medications reviewed and adjusted accordingly: Yes Anticipated discharge: SNF - Inpatient Certification Based on my medical assessment, after consideration of the patient's comorbidities, presenting symptoms, or acuity I expect that the services needed warrant INPATIENT care.: Yes I certify that my determination is in accordance with my understanding of Medicare's requirements for reasonable and necessary INPATIENT services [42 CFR 412.3e].: Yes Medical Necessity: Need for IV Antibiotics, Risk of Complication if Not Cared For in Hospital
[2018-12-03] MEDS: INSULIN GLARGINE,HUM.REC.ANLOG 1,000 UNIT/10 ML VIAL SUBCUT SCH (22:47)
[2018-12-03] MEDS: DIAZEPAM 5 MG TABLET PO SCH (22:48)
[2018-12-03] MEDS: SIMVASTATIN 40 MG TABLET PO SCH (22:48)
[2018-12-04] MEDS: GABAPENTIN 300 MG CAPSULE PO SCH ×3 (06:25→22:32)
[2018-12-04] MEDS: INSULIN LISPRO 100 UNIT/ML 3 ML VIAL SUBCUT SCH ×4 (08:14→22:32)
[2018-12-04] MEDS: DOCUSATE SODIUM 100 MG CAPSULE PO SCH ×2 (10:18→18:00)
[2018-12-04] MEDS: CEFEPIME 1 GM/D5W RTU 1 GM/50 ML RTUPB IV SCH (10:18)
[2018-12-04] MEDS: FAMOTIDINE 20 MG TABLET PO SCH ×2 (10:18→22:32)
[2018-12-04] MEDS: INSULIN GLARGINE,HUM.REC.ANLOG 1,000 UNIT/10 ML VIAL SUBCUT SCH (22:32)
[2018-12-04] MEDS: SIMVASTATIN 40 MG TABLET PO SCH (22:32)
[2018-12-05] MEDS: GABAPENTIN 300 MG CAPSULE PO SCH ×3 (05:06→22:20)
[2018-12-05] MEDS: INSULIN LISPRO 100 UNIT/ML 3 ML VIAL SUBCUT SCH ×4 (08:08→22:21)
--- NOTE | 2018-12-05 09:44 | PDOC PROGRESS REPORT ---
Subjective Progress Note for:: 12/04/18 Subjective:: 73-year-old male with history of diabetes mellitus, hyperlipidemia, peripheral vascular disease admitted for a 9-week old nonhealing right fifth toe amputation site. 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 Surgical site is clean and intact. Wrapped with an qamar bandage and knee immobilizer. Plan for surgery to complete dressing change today. No major events during this hospitalization. Blood glucose moderately controlled, frequently > 200. Increased Lantus again (10-->15 units) based on 24 hour insulin usage Patient accepted at [facility]. Waiting for insurance approval. Will hopefully discharge soon. Reason For Visit: DM FOOT W PVD Physical Exam Vital Signs: Temp Pulse Resp BP Pulse Ox 98.7 F 88 18 133/61 H 94 12/05/18 08:13 12/05/18 08:13 12/05/18 08:13 12/05/18 08:13 12/05/18 08:13 Intake & Output 12/04/18 12/05/18 12/06/18 06:59 06:59 06:59 Intake Total 1020 1371 Output Total 800 1500 Balance 220 -129 Weight 64.4 kg 61.8 kg General appearance: PRESENT: no acute distress, thin Head exam: PRESENT: atraumatic, normocephalic Eye exam: PRESENT: conjunctiva pink, EOMI, PERRLA. ABSENT: scleral icterus Ear exam: PRESENT: normal external ear exam Mouth exam: PRESENT: moist, tongue midline Teeth exam: PRESENT: poor dentation Neck exam: ABSENT: carotid bruit, JVD, lymphadenopathy, thyromegaly Respiratory exam: PRESENT: clear to auscultation kat, symmetrical, unlabored. ABSENT: rales, rhonchi, wheezes Cardiovascular exam: PRESENT: RRR. ABSENT: diastolic murmur, rubs, systolic m urmur Pulses: PRESENT: normal radial pulses, normal dorsalis pedis pul - left foot only Vascular exam: PRESENT: normal capillary refill GI/Abdominal exam: PRESENT: normal bowel sounds, soft. ABSENT: distended, guarding, mass, organolmegaly, rebound, tenderness Rectal exam: PRESENT: deferred Extremities exam: PRESENT: full ROM. ABSENT: calf tenderness, clubbing, pedal edema Musculoskeletal exam: ABSENT: ambulatory - due to R BKA Neurological exam: PRESENT: alert, awake, oriented to person, oriented to place, oriented to time, oriented to situation Psychiatric exam: PRESENT: appropriate affect, normal mood Skin exam: PRESENT: dry, intact, warm. ABSENT: cyanosis, rash Results Laboratory Results: 11/30/18 05:42 11/29/18 03:59 11/29/18 11/30/18 03:59 05:42 Troponin I 0.052 0.035 Impressions: Foot X-Ray 11/27/18 15:19 IMPRESSION: No plain radiographic evidence for osteomyelitis. Status: Imported from PACS Assessment and Plan - Diagnosis (1) Non-healing amputation site Is this a current diagnosis for this admission?: Yes Plan: Empiric antibiotics for coverage of MRSA and Pseudomonas, diabetic wounds tend to be polymicrobial Currently treated with only Cefepime, would recommend IV vancomycin for G+ coverage Blood cultures are pending. S/p R BKA 11/28/2018 (2) Coronary artery disease Qualifiers: Coronary Disease-Associated Artery/Lesion type: unspecified vessel or lesion type [place] vs. transplanted heart: unspecified whether [place] or transplanted heart Associated angina: with unspecified angina Qualified Code(s): I25.119 - Atherosclerotic heart disease of [place] coronary artery with unspecified angina pectoris Is this a current diagnosis for this admission?: Yes Plan: Without chest pain Continue statin (3) Dysphasia Is this a current diagnosis for this admission?: Yes Plan: Resolved Tolerating PO diet Sensation of foreign body in the oropharynx with no respiratory symptoms patient being able to eat and drink without evidence of obstruction. Suspect oropharyngeal irritation by food bolus while eating yesterday Will offer PRN hurricane spray. If symptoms however persist will obtain a swallow study (4) History of [place] (myocardial infarction) Is this a current diagnosis for this admission?: Yes Plan: Cardiology consult, appreciate expertise Requested cardiac clearance prior to surgery No complaints of chest pain. (5) Peripheral vascular disease Is this a current diagnosis for this admission?: Yes Plan: PMH PVD with right fifth toe infection status post amputation as an outpatient by the podiatry team admitted for nonhealing surgical site (6) Type 2 diabetes mellitus Qualifiers: Diabetes mellitus extermination supervisor insulin use: without intermediate use Diabetes mellitus complication status: with skin complications Diabetes mellitus complication detail: with foot ulcer Qualified Code(s): E11.621 - Type 2 diabetes mellitus with foot ulcer; L97.509 - Non-pressure chronic ulcer of other part of unspecified foot with unspecified severity Is this a current diagnosis for this admission?: Yes Plan: Hemoglobin A1c 6.7% Diabetic diet Accuchecks ACHS Humalog SSI Increased Lantus from 10-->15 units daily - Time Time Spent with patient: 15-24 minutes Medications reviewed and adjusted accordingly: Yes Anticipated discharge: SNF Within: within 48 hours - Inpatient Certification Based on my medical assessment, after consideration of the patient's comorbidities, presenting symptoms, or acuity I expect that the services needed warrant INPATIENT care.: Yes I certify that my determination is in accordance with my understanding of Medicare's requirements for reasonable and necessary INPATIENT services [42 CFR 412.3e].: Yes Medical Necessity: Significant Comorbidiites Make Outpatient Treatment Too Risky, Need Close Monitoring Due to Risk of Patient Decompensation, Risk of Complication if Not Cared For in Hospital
--- NOTE | 2018-12-05 09:49 | PDOC PROGRESS REPORT ---
Subjective Progress Note for:: 12/05/18 Subjective:: 73-year-old male with history of diabetes mellitus, hyperlipidemia, peripheral vascular disease admitted for a 9-week old nonhealing right fifth toe amputation site. 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 Surgical site is clean and intact. Wrapped with an qamar bandage and knee immobilizer. Plan for surgery to complete dressing change today. No major events during this hospitalization. Blood glucose moderately controlled, frequently > 200. Increased Lantus again (15-->17 units) based on 24 hour insulin usage Patient's SSRI was not listed on medication reconciliation today, was restarted on home dose. Patient accepted at [facility] rehab. Waiting for insurance approval. Will hopefully discharge soon. Reason For Visit: DM FOOT W PVD Physical Exam Vital Signs: Temp Pulse Resp BP Pulse Ox 98.7 F 88 18 133/61 H 94 12/05/18 08:13 12/05/18 08:13 12/05/18 08:13 12/05/18 08:13 12/05/18 08:13 Intake & Output 12/04/18 12/05/18 12/06/18 06:59 06:59 06:59 Intake Total 1020 1371 Output Total 800 1500 Balance 220 -129 Weight 64.4 kg 61.8 kg General appearance: PRESENT: no acute distress, thin Head exam: PRESENT: atraumatic, normocephalic Eye exam: PRESENT: conjunctiva pink, EOMI, PERRLA. ABSENT: scleral icterus Ear exam: PRESENT: normal external ear exam Mouth exam: PRESENT: moist, tongue midline Teeth exam: PRESENT: poor dentation Neck exam: PRESENT: full ROM. ABSENT: carotid bruit, JVD, lymphadenopathy, thyromegaly Respiratory exam: PRESENT: clear to auscultation kat, symmetrical, unlabored. ABSENT: rales, rhonchi, wheezes Cardiovascular exam: PRESENT: RRR. ABSENT: diastolic murmur, rubs, systolic murmur Pulses: PRESENT: normal radial pulses, normal dorsalis pedis pul - left foot only Vascular exam: PRESENT: normal capillary refill GI/Abdominal exam: PRESENT: normal bowel sounds, soft. ABSENT: distended, guarding, mass, organolmegaly, rebound, tenderness Rectal exam: PRESENT: deferred Extremities exam: PRESENT: full ROM. ABSENT: calf tenderness, clubbing, pedal edema Musculoskeletal exam: PRESENT: deformity - R BKA. ABSENT: ambulatory - due to R BKA Neurological exam: PRESENT: alert, awake, oriented to person, oriented to place, oriented to time, oriented to situation Psychiatric exam: PRESENT: appropriate affect, normal mood Skin exam: PRESENT: dry, intact, warm. ABSENT: cyanosis, rash Results Laboratory Results: 11/30/18 05:42 11/29/18 03:59 11/29/18 11/30/18 03:59 05:42 Troponin I 0.052 0.035 Impressions: Foot X-Ray 11/27/18 15:19 IMPRESSION: No plain radiographic evidence for osteomyelitis. Status: Imported from PACS Assessment and Plan - Diagnosis (1) Non-healing amputation site Is this a current diagnosis for this admission?: Yes Plan: Empiric antibiotics for coverage of MRSA and Pseudomonas, diabetic wounds tend to be polymicrobial Currently treated with only Cefepime, would recommend IV vancomycin for G+ coverage Blood cultures are pending. S/p R BKA 11/28/2018 (2) Coronary artery disease Qualifiers: Coronary Disease-Associated Artery/Lesion type: unspecified vessel or lesion type [place] vs. transplanted heart: unspecified whether [place] or transplanted heart Associated angina: with unspecified angina Qualified Code(s): I25.119 - Atherosclerotic heart disease of [place] coronary artery with unspecified angina pectoris Is this a current diagnosis for this admission?: Yes Plan: Without chest pain Continue statin (3) Dysphasia Is this a current diagnosis for this admission?: Yes Plan: Resolved Tolerating PO diet (4) History of CT (myocardial infarction) Is this a current diagnosis for this admission?: Yes Plan: Cardiology consult, appreciate expertise Requested cardiac clearance prior to surgery No complaints of chest pain. (5) Peripheral vascular disease Is this a current diagnosis for this admission?: Yes Plan: PMH PVD with right fifth toe infection status post amputation as an outpatient by the podiatry team admitted for nonhealing surgical site (6) Type 2 diabetes mellitus Qualifiers: Diabetes mellitus care home insulin use: without care home use Diabetes mellitus complication status: with skin complications Diabetes mellitus complication detail: with foot ulcer Qualified Code(s): E11.621 - Type 2 diabetes mellitus with foot ulcer; L97.509 - Non-pressure chronic ulcer of other part of unspecified foot with unspecified severity Is this a current diagnosis for this admission?: Yes Plan: Hemoglobin A1c 6.7% Diabetic diet Accuchecks ACHS Humalog SSI Increased Lantus from 15-->17 units daily (7) History of psychiatric symptoms Is this a current diagnosis for this admission?: Yes Plan: According to daughter, the patient has a history of suicidal ideation Has not endorsed feelings of suicidal or homicidal ideation during this hospitalization Unfortunately, the patient's medication reconciliation was not up to date and his SSRI was added today Plan to resume patient's home dose of Lexapro - Time Time Spent with patient: 15-24 minutes Medications reviewed and adjusted accordingly: Yes Anticipated discharge: SNF Within: within 24 hours, within 48 hours - Inpatient Certification Based on my medical assessment, after consideration of the patient's comorbidities, presenting symptoms, or acuity I expect that the services needed warrant INPATIENT care.: Yes I certify that my determination is in accordance with my understanding of Medicare's requirements for reasonable and necessary INPATIENT services [42 CFR 412.3e].: Yes Medical Necessity: Significant Comorbidiites Make Outpatient Treatment Too R isky, Need Close Monitoring Due to Risk of Patient Decompensation, Risk of Complication if Not Cared For in Hospital - Plan Summary Plan Summary: WAITING FOR INSURANCE APPROVAL TO GO TO [facility]
[2018-12-05] MEDS: FAMOTIDINE 20 MG TABLET PO SCH ×2 (10:20→22:20)
[2018-12-05] MEDS: ESCITALOPRAM OXALATE 10 MG TABLET PO SCH (10:20)
[2018-12-05] MEDS: DOCUSATE SODIUM 100 MG CAPSULE PO SCH ×2 (10:20→17:15)
--- NOTE | 2018-12-05 15:33 | PDOC PROGRESS REPORT ---
Subjective Progress Note for:: 12/05/18 Subjective:: Right BKA stump pains Reason For Visit: DM FOOT W PVD Physical Exam Vital Signs: Temp Pulse Resp BP Pulse Ox 99.1 F 81 16 154/67 H 94 12/05/18 11:44 12/05/18 11:44 12/05/18 11:44 12/05/18 11:44 12/05/18 11:44 Intake & Output 12/04/18 12/05/18 12/06/18 06:59 06:59 06:59 Intake Total 1020 1371 Output Total 800 1500 Balance 220 -129 Weight 64.4 kg 61.8 kg Exam: Stump looks good. Redressed. Stump looks clean and dry. Results Laboratory Results: 11/30/18 05:42 11/29/18 03:59 11/29/18 11/30/18 03:59 05:42 Troponin I 0.052 0.035 Impressions: Foot X-Ray 11/27/18 15:19 IMPRESSION: No plain radiographic evidence for osteomyelitis. Assessment & Plan - Diagnosis (1) Diabetic foot infection Is this a current diagnosis for this admission?: Yes (2) Peripheral vascular disease Is this a current diagnosis for this admission?: Yes (3) Type 2 diabetes mellitus Qualifiers: Diabetes mellitus extermination supervisor insulin use: without extermination supervisor use Diabetes mellitus complication status: with skin complications Diabetes mellitus complication detail: with foot ulcer Qualified Code(s): E11.621 - Type 2 diabetes mellitus with foot ulcer; L97.509 - Non-pressure chronic ulcer of other part of unspecified foot with unspecified severity Is this a current diagnosis for this admission?: Yes - Time Time Spent with patient: 15-24 minutes - Plan Summary Plan Summary: Waiting for ins approval for [place] which was already approved by [place] F/U surgical clinic in 2-3 weeks for removal of staoles and possible fitting for prosthesis
[2018-12-05] MEDS ORDERED: INSULIN GLARGINE,HUM.REC.ANLOG 1,000 UNIT/10 ML VIAL SUBCUT SCH (22:00)
[2018-12-05] MEDS: SIMVASTATIN 40 MG TABLET PO SCH (22:20)
[2018-12-06] MEDS: GABAPENTIN 300 MG CAPSULE PO SCH ×2 (06:24→15:43)
[2018-12-06] MEDS: INSULIN LISPRO 100 UNIT/ML 3 ML VIAL SUBCUT SCH ×3 (08:00→15:46)
--- NOTE | 2018-12-06 11:08 | ST Inp Modified Barium Swallow ---
Medical Diagnosis - Medical Diagnoses Medical Diagnosis Description & ICD-10 Code(s): dysphagia - ICD-10 Tx Diagnosis Coding (1) Dysphagia ICD-10 Code(s): R13.10 - DYSPHAGIA, UNSPECIFIED ST Inpatient MBS - General Date: 12/06/18 Date of Onset: 12/04/18 - History History Obtained From: Other - EMR: per EMR: patient initially admitted 11/27 with chronic diabetic foot wound and subsequently had surgery to amputate. Prior medical history includes diabetes and myocardial infarction. Nursing staff has recently noted some coughing with meals and when drinking. Speech pathologist completed bedside exam on 12/05, and noted prolonged coughing after subsequent cup sips of water (3-5 seconds following). Recommended MBSS at that time. Medications: Medications Reviewed Allergies: No known allergies - Subjective Current Nutritional Means: PO Current PO Diet: Regular - with thin liquids Current Symptoms: Coughing Pain: Patient reports, 0/5 - Objective Assessment: Upright, Left Lateral - Food Trials Food Trials Used: Thin liquids, Pureed, Regular The Patient: Was Able to Self Feed - Assessment Labial Function: Within Normal Limits Lingual Function: Within Normal Limits Mandibular Function: Within Normal Limits Velo-Pharyngeal Function: Unremarkable Laryngeal Function: clear voicing - Pharyngeal Stage Initiation of Pharyngeal Stage: Normal - triggered in valleculae Decreased Laryngeal Elevation: No Reduced Velo-Pharyngeal Closure: no Reduced Pressure Generation: No Reduced Tongue Base Retraction: No Pre-Swallowing Pooling in Valleculae: Significant Pre-Swallowing Pooling in Pyriforms: Mild Reduced Thyro-Hyiod Approximation: Yes - mild, inconsistent Reduced Epiglottic Excursion: Yes - inconsistently Multiple Swallows With: Ineffective Clearance - some residue would clear with dry swallows, but with heavier solids Post Swallow Residuals in Valleculae: Moderate Post Swallow Residuals in Pyriforms: Mild Pahryngeal Stage Comments: Epiglottis was seen to inconsistently invert during the swallow. This caused higher levels of residue in valleculae. Residuals were seen to penetrate occasionally, with 1 episode of aspiration from residuals in valleculae. Mild residue also seen in pyriform sinus, which cleared with second swallow. Residue in valleculae did not always clear, especially as the texture of PO trials increased. - Impression/Summary Laryngeal Penetration: Yes, after swallow Tracheal Aspiration: yes - x1, after swallow - on residuals Effective Clearing: partial clearing Effective Compensatory Strategies: hard swallow Ineffective Compensatory Strategies: chin down Compensatory Strategies: Recommend trialing supraglottic swallow in treatment for airway protection. Patient Presents With: Pharyngeal stage dysph., Mild-Moderate - moderate Risk of Aspiration: Moderate - Recommendations Solid Diet Recommendations: Regular Liquid Diet Recommendations: Thin Strict Aspitarion Precautions: Yes Dysphagia Therapy with PARQUET FLOOR LAYER: Yes - Patient states that he currently plans to discharge to a rehab facility. Recommend dysphagia treatment at rehab. Recommended Techniques: Fully Upright During Meal, Small Bites and Sips, Alternate Bites/Sips - Time Total Time: 25 Total Timed Minutes: 25
--- NOTE | 2018-12-06 11:15 | RADIOLOGY REPORT (SQ) ---
EXAM DESCRIPTION: DILCIA SWALLOW COMPLETED DATE/TIME: 12/06/2018 11:02 am REASON FOR STUDY: signs of aspiration COMPARISON: None. TECHNIQUE: Videofluoroscopic swallowing examination was performed in conjunction with speech patholo gy. Videofluoroscopic imaging was obtained and reviewed and these are the findings: RADIATION DOSE: Fluoro time 3.04 minutes 1 images saved to PACS. LIMITATIONS: None FINDINGS: The patient was brought into the fluoro room and placed upright on a modified barium swall ow chair. The patient was then given multiple consistencies mixed with barium to swallow under live fluoroscopic video guidance. According to the Speech Pathologist there was deep laryngeal penetratio n seen with thin barium. No definite aspiration identified. All other consistencies were swallowed without incident. There is intermittent lack of epiglottic inversion noted. Significant residuals w ere seen in the vallecula and piriform sinuses. Please refer to the speech pathology report for furth er details. IMPRESSION: LARYNGEAL PENETRATION WITHOUT ASPIRATION SEEN WITH THIN BARIUM. PLEASE SEE SPEECH PATHOL OGIST REPORT FOR OTHER FINDINGS AND RECOMMENDATIONS. COMMENT: None Quality ID [id number]: Final reports for procedures using fluoroscopy that document radiation exposure kiran amanda, or exposure time and number of fluorographic images (if radiation exposure indices are not avail able) TECHNICAL DOCUMENTATION: JOB ID: [id number] [employer]- All Rights Reserved Reading location - IP/workstation name: [email or web address] [id number]
[2018-12-06 11:51] VITALS: BP 159/66
[2018-12-06] MEDS: DOCUSATE SODIUM 100 MG CAPSULE PO SCH (12:27)
[2018-12-06] MEDS: ESCITALOPRAM OXALATE 10 MG TABLET PO SCH (12:27)
[2018-12-06] MEDS: FAMOTIDINE 20 MG TABLET PO SCH (12:27)
--- NOTE | 2018-12-06 15:14 | TRANSFER SUMMARY E ---
Transfer Summary NAME: LEE IVEY : 1945 AGE: 73Y ADMITTED: 11/27/2018 TRANSFERRED: 12/06/2018 FINAL DIAGNOSES: 1. DIABETES MELLITUS. 2. DIABETIC RIGHT FOOT ULCER CHRONIC INFECTION. 3. CORONARY ARTERY DISEASE. 4. PERIPHERAL VASCULAR DISEASE. 5. HISTORY OF MYOCARDIAL INFARCTION. HOSPITAL COURSE: This is a 74-year-old male with chronic infection of the right foot. He had multiple antibiotic therapies. He was then admitted and was cleared by cardiology and by medicine to go to the OR. He then underwent right below knee amputation on 11/28/18, surgeon Dr. Vega. Patient postoperatively did quite well. The stump looked good after a couple of days and the drain was removed the next day. He was continued on IV antibiotics for about 7 days after surgery. Patient had a barium swallow to check for aspiration and this was negative. Also, patient undergoing physical therapy. He will be transferred to a rehab facility today, 12/06/18 with the above final diagnoses. He takes medication: 1. Albuterol sulfate 3 mL neb q. 12 hours p.r.n. 2. Simvastatin 40 mg p.o. nightly. 3. Humulin 17 units subcutaneously q. hour of sleep and insulin Lispro Humalog 0-12 units subcutaneously before meals and after meals. Patient to be followed at a surgical clinic in about 2 to 3 weeks for removal of the ronald and possible placement of prosthesis. Patient to continue with physical therapy at the rehab facility. DICTATING PHYSICIAN: NEDRA RAINEY M.D. [id number] PHY#: [id number] ID: [id number] JOB#: [id number] ACCT: [id number] cc:NEDRA RAINEY M.D. >
[2018-12-06] MEDS ORDERED: NYSTATIN TOPICAL POWDER 15 GM TP SCH (18:00)
== END 2018-12-06 17:45 | DRG 857 ==
LOC: ER 14:11 → EH 21:16 → 3N 11-28 00:10 → 5 11-29 11:35
PROVIDERS: ADMIT Surgery; ATTEND Surgery
PROC: 0Y6F0ZZ Detachment at Right Knee Region, Open Approach (ICD-10-PCS; principal; 2018-11-28 13:30)
DX: T81.49XA Infection following a procedure, other surgical site, initial encounter (principal); E11.52 Type 2 diabetes mellitus with diabetic peripheral angiopathy with gangrene; I96 Gangrene, not elsewhere classified; D62 Acute posthemorrhagic anemia; F41.9 Anxiety disorder, unspecified; E78.5 Hyperlipidemia, unspecified; Z89.421 Acquired absence of other right toe(s); I25.2 Old myocardial infarction; Z95.0 Presence of cardiac pacemaker; Y83.5 Amputation of limb(s) as the cause of abnormal reaction of the patient, or of later complication, without mention of misadventure at the time of the procedure; E11.621 Type 2 diabetes mellitus with foot ulcer; I25.119 Atherosclerotic heart disease of native coronary artery with unspecified angina pectoris; L97.519 Non-pressure chronic ulcer of other part of right foot with unspecified severity; Z79.84 Long term (current) use of oral hypoglycemic drugs; R47.02 Dysphasia; G54.6 Phantom limb syndrome with pain
CPT/HCPCS: 01482; 36415; 74230; 80053; 82962; 83036; 83605; 83735; 84484; 85025; 85610; 85730; 87040; 87070; 87075; 87205; 88307; 88311; 93005; 93010; 93306; 93926; 96374; 99285; J0692; J1815; J1885; J2250; J2270; J2405; J2704; J3010; J3370; J3490; L1830

== ENCOUNTER 2019-04-04 08:11 | Day surgery (SDC) | payer MEDICARE ==
[2019-03-22 13:38] LABS: HEMATOCRIT 37.5 % (37.9-51.0); HEMOGLOBIN 12.5 g/dL (13.5-17.0); MEAN CORPUSCULAR HGB CONC 33.3 g/dL (32.0-36.0); MEAN CORPUSCULAR VOLUME 87 fl (80-97); PLATELET COUNT 239 10^3/uL (150-450); RED BLOOD COUNT 4.31 10^6/uL (4.35-5.55); RED CELL DISTRIBUTION WIDTH 13.8 % (11.5-14.0)
[2019-03-22 13:49] LABS: INTERNATIONAL RATION (INR) 1.04; PROTHROMBIN TIME 13.6 SEC (11.4-15.4)
[2019-03-22 13:50] LABS: PARTIAL THROMBOPLASTIN TIME 30.8 SEC (23.5-35.8)
[2019-03-22 14:19] LABS: CALCIUM 10.1 mg/dL (8.4-10.2); GLUCOSE 174 mg/dL (75-110)
[2019-03-22 14:20] LABS: ANION GAP 9 (5-19); BLOOD UREA NITROGEN 23 mg/dL (7-20); CARBON DIOXIDE 27 mmol/L (22-30); CHLORIDE 101 mmol/L (98-107); POTASSIUM 5.1 mmol/L (3.6-5.0)
--- NOTE | 2019-03-22 23:07 | EKG REPORT ---
SEVERITY:- NORMAL ECG - SINUS RHYTHM CONSIDER INF IA, OLD : Confirmed by: Krystyna Hamlin 22-Mar-2019 23:07:18
[~2019-04-04 08:11] MED LIST changes: -CEFAZOLIN 1 GM/D5W RTU 1 GM/50 ML RTUPB IV SCH; +CEFAZOLIN SODIUM 1 GM in DEXTROSE 5%-WATER 50 ML IV PRN; -DIPHENHYDRAMINE HCL 50 MG/ML VIAL ONE; -FENTANYL CITRATE INJ/PF 100 MCG/2 ML AMPUL ONE; +LACTATED RINGERS 1000 ML IV PRN; +LIDOCAINE 0.5% INJ-PF (5 MG/ML) 50 ML SDV SUBCUT PRN; +LIDOCAINE 1%/EPINEPHRINE INJ 20 ML VIAL ONE; -MIDAZOLAM 2 MG/2 ML INJ ONE; +POVIDONE-IODINE 5% OPH PREP SOLN 30 ML ONE; -PROPOFOL INJ 200 MG/20 ML VIAL IV ONE; +SODIUM BICARBONATE 8.4% INJ 50 MEQ/50 ML DISP.SYRIN ONE
[2019-04-04] MEDS ORDERED: FENTANYL CITRATE INJ/PF 100 MCG/2 ML AMPUL IV PRN ×3 (08:55)
[2019-04-04] MEDS ORDERED: PROMETHAZINE HCL INJ 25 MG/1 ML VIAL IV PRN ×2 (08:55)
[2019-04-04] MEDS ORDERED: DIPHENHYDRAMINE HCL 50 MG/ML VIAL IV PRN (08:55)
[2019-04-04] MEDS ORDERED: ONDANSETRON HCL INJ/PF 4 MG/2 ML SDV IV PRN (08:55)
[2019-04-04 09:11] LABS: POTASSIUM 4.7 mmol/L (3.6-5.0)
[2019-04-04] MEDS ORDERED: LIDOCAINE 2% INJ-PF (20 MG/ML) 10 ML AMPUL ONE (09:41)
[2019-04-04] MEDS ORDERED: ONDANSETRON HCL INJ/PF 4 MG/2 ML SDV ONE (09:41)
[2019-04-04] MEDS ORDERED: FENTANYL CITRATE INJ/PF 100 MCG/2 ML AMPUL ONE ×2 (09:41→13:11)
[2019-04-04] MEDS ORDERED: MIDAZOLAM 2 MG/2 ML INJ ONE (09:41)
[2019-04-04] MEDS ORDERED: PROPOFOL INJ 200 MG/20 ML VIAL IV ONE (09:42)
[2019-04-04] MEDS ORDERED: BALANCED SALT IRRIG SOLN COMB2 15 ML BOTTLE ONE (12:27)
[2019-04-04] MEDS ORDERED: NEO/POLYMYX B SULF/DEXAMETH OPH OINTMENT 3.5 GM ONE (12:28)
[2019-04-04] MEDS ORDERED: NEO/POLYMYX B SULF/DEXAMETH OPH SUSP 5 ML ONE (12:28)
--- NOTE | 2019-04-04 12:53 | Operative Report ---
Operative Report DATE OF SURGERY: 04/04/19 PREOPERATIVE DIAGNOSIS: Basal cell carcinoma of the left lower eyelid including the orbital rim and the malar cheek POSTOPERATIVE DIAGNOSIS: Same OPERATION: Excision of basal cell carcinoma from the left lower eyelid which also extended onto the orbital rim and onto the malar cheek with frozen section margin control which came back that it was difficult to read but it was a basal cell carcinoma and grossly and on quick frozen section it appeared that the margins were clear but permanent section will determine the final results. Reconstruction with a combination split-thickness and full-thickness graft to match the different thicknesses of the defect of the eyelid orbital rim and upper malar region of the cheek. SURGEON: MILKA RAMOS ANESTHESIA: LMAC TISSUE REMOVED OR ALTERED: Basal cell carcinoma COMPLICATIONS: None ESTIMATED BLOOD LOSS: Minimal PROCEDURE: The patient was brought into the operating room. The patient was laid on the operating room table in a supine position. The patient was prepped and draped in a sterile and aseptic fashion. After a timeout we then went ahead and marked the area of the left lower eyelid orbital rim and upper malar region of the cheek to be resected. The 12:00 margin was towards the upper lid. The 3:00 margin was towards the lateral canthus. The 6:00 margin was towards the lower cheek. The 9:00 margin was towards the medial canthus. Then went ahead and anesthetize the area with 1% lidocaine with epinephrine. Then went ahead and excise the area. Stitch was placed at 12:00 and it was sent for frozen section. Frozen section results came back that the deep and lateral margins were clear. We irrigated the wound with Betadine sterile water to lyse any remaining cancer cells. We then went ahead and decided that because of the size of the defect we will proceed with a skin graft. Decided to harvest the graft from the left clavicular region. We then went ahead and harvest the full-thickness/split-thickness graft. We closed the area with 3-0 Vicryl sutures and the skin was then closed with 3-0 PDS with knots being tied on the outside and a support stitch in the center. At the end of the case tincture of benzoin and Steri-Strips were applied with a light pressure dressing. Graft was then defatted to the appropriate size and placed into the area of defect. Because of the thin eyelid skin part of the graft was converted to a split- thickness graft which covered the margin of the eyelid extending down to the i nfraorbital rim. This area was apparently defatted but also excessively thinned in order to give a contour appropriate for the thickness of the lower eyelid skin. The lower portion of the graft that was on the malar and upper cheek area was left as full-thickness graft in order to maintain appropriate contour to the area. So a portion of the graft that was harvested was left this full-thickness graft and a portion was thinned as a split thickness graft in order to facilitate the best appearance to the eyelid. It was then sutured into place with 5-0 Prolene sutures leaving one end long. After all the sutures were placed we then went ahead and applied Xeroform. Then went ahead and created a bolus dressing and tied each suture 180 from each other. Then tied the sutures again to each other. Bacitracin was applied. 2 x 2's were applied and tincture benzoin and the dressing was taped into place. At the end of the case the patient was doing well and brought to the [facility] for recovery The approximate size of the lesion was 2.2 cm approximately. This dictation was performed using [employer] naturally speaking. If there are any inconsistencies please contact the dictating surgeon. Subjective: No complaints Objective: Vital signs stable afebrile No bleeding Dressing intact Assessment and plan: Doing well. Elevate the operative site. Resume medications. Take antibiotics for 1 day Follow-up Full instructions were given to the patient and family and they understand Portions of this note may be dictated using [employer] voice recognition software. Occasional variations and spelling and vocabulary could be possible and are unintentional. Additionally, there is a chance that some errors may not be caught or corrected. Please notify the offer of any discrepancies noted or if any statements are unclear.
--- NOTE | 2019-04-04 12:56 | Discharge Summary ---
Discharge Summary (SDC) - Discharge Final Diagnosis: Basal cell carcinoma of the left lower eyelid orbital rim area and upper malar cheek area. Date of Surgery: 04/04/19 Condition: Good Treatment or Instructions: All Antibiotics for 1 day, then discontinue. Elevate operative area to decrease swelling. Do not strain, or lift heavy objects. Call for excessive bleeding, increased temperature of 101, uncontrolled pain, or excessive nausea or vomiting. You may reach Dr. Luther through his office at [phone]. In the event of an emergency after hours, then contact Dr. Luther through [facility]. Return to the office for a postop check on . The time will be scheduled by the nursing staff of [facility] prior to discharge. Please give the patient a copy of their labs and EKG so they can bring this to their PMD. Thank you Portions of this note may be dictated using [employer] voice recognition software. Occasional variations and spelling and vocabulary could be possible and are unintentional. Additionally, there is a chance that some errors may not be caught or corrected. Please notify the offer of any discrepancies noted or if any statements are unclear. Referrals: SHANTI BONILLA MD [Primary Care Provider] - Discharge Diet: As Tolerated Discharge Activity: No Lifting/Push/Pulling Report the Following to Your Physician Immediately: Unusual Bleeding - Keep head elevated. Leave the eyelid dressing in place. If the eye gets dry use the eyedrops provided. Apply ophthalmic ointment to the eye if it gets dry and at nighttime before bed Do not rub the eye. Do not disturb at the eye dressing.
[2019-04-04] MEDS ORDERED: OXYCODONE-ACETAMINOPHEN 5-325 MG TABLET ONE (15:08)
[2019-04-04] MEDS ORDERED: OXYCODONE-ACETAMINOPHEN 5-325 MG TABLET PO ONE (15:15)
[2019-04-04] MEDS ORDERED: OXYCODONE-ACETAMINOPHEN 5-325 MG TABLET PO PRN (15:21)
[2019-04-04] MEDS ORDERED: DEXTROSE 50%-WATER SYRINGE 12.5 GM/25 ML DOSE IV PRN (19:00)
[2019-04-04] MEDS ORDERED: DEXTROSE 40% GEL 15 GM TUBE PO PRN (19:00)
[2019-04-04] MEDS ORDERED: DEXTROSE 40% GEL 15 GM TUBE X 2 PO PRN (19:00)
[2019-04-04] MEDS ORDERED: GLUCAGON,HUMAN RECOMB 1 MG INJ IM PRN (19:00)
[2019-04-04] MEDS ORDERED: DEXTROSE 50%-WATER SYRINGE 25 GM/50 ML DOSE IV PRN (19:00)
[2019-04-04] MEDS: CEPHALEXIN 500 MG CAPSULE PO SCH (22:14)
[2019-04-04] MEDS: INSULIN LISPRO 100 UNIT/ML 3 ML VIAL SUBCUT SCH (22:14)
[2019-04-04] MEDS ORDERED: NEO/POLYMYX B SULF/DEXAMETH OPH OINTMENT 3.5 GM OS PRN (22:50)
[2019-04-05 01:39] VITALS: BP 121/52
[2019-04-05] MEDS ORDERED: NEO/POLYMYX B SULF/DEXAMETH OPH OINTMENT 3.5 GM ONE (04:37)
[2019-04-05] MEDS: CEPHALEXIN 500 MG CAPSULE PO SCH (05:08)
[2019-04-05] MEDS ORDERED: OXYCODONE-ACETAMINOPHEN 5-325 MG TABLET PO PRN (05:45)
[2019-04-05] MEDS: INSULIN LISPRO 100 UNIT/ML 3 ML VIAL SUBCUT SCH (08:06)
[2019-04-05] MEDS ORDERED: NEO/POLYMYX B SULF/DEXAMETH OPH OINTMENT 3.5 GM OS PRN (09:07)
== END 2019-04-05 09:54 | disposition home health service (06) ==
LOC: OROUT 08:11 → 4S 18:15 → OROUT 04-05 09:54
PROVIDERS: ATTEND Plastic Surgery
DX: C44.1192 Basal cell carcinoma of skin of left lower eyelid, including canthus (principal); I25.2 Old myocardial infarction; E11.9 Type 2 diabetes mellitus without complications; I73.9 Peripheral vascular disease, unspecified; Z79.899 Other long term (current) drug therapy; Z79.01 Long term (current) use of anticoagulants; Z79.4 Long term (current) use of insulin; Z79.84 Long term (current) use of oral hypoglycemic drugs
CPT/HCPCS: 93005; 36415 ×2; 82962; 82947; 84132; 85027; 85610; 85730; 80048; 88305 ×2; 88331 ×2; 93010; 00300; 11643; 15260; J2250; J3490 ×5; J0690; A9270 ×7; J3010; J2405; J7060; J2704; 300; J1815

== ENCOUNTER → 2019-04-13 | Outpatient (CLI) | payer MEDICARE ==
[2019-04-16 09:14] LABS: DEAMIDATED GLIADIN IGA AB 6 units (0-19); DEAMIDATED GLIADIN IGG AB 4 units (0-19); T-TRANSGLUTAMINASE (TTG) IGA <2 U/mL (0-3); T-TRANSGLUTAMINASE (TTG) IGG <2 U/mL (0-5)
== END ==
LOC: OD 11:32
PROVIDERS: ATTEND Internal Medicine
DX: K52.9 Noninfective gastroenteritis and colitis, unspecified (principal)
CPT/HCPCS: 36415; 83520

== ENCOUNTER 2019-11-28 08:00 | Day surgery (SDC) | payer MEDICARE ==
[~2019-11-28 08:00] MED LIST changes: -CEFAZOLIN SODIUM 1 GM in DEXTROSE 5%-WATER 50 ML IV PRN; +CHONDR SU A NA/HYALUR INTRAOC KIT (SURGICARE) ONE; +EPINEPHRINE INJ/PF 1 MG/1 ML AMPULE ONE; +KETOROLAC TROMETHAMINE 0.45% 4 DROP/0.4 ML DROPERETTE OD PRN; -LACTATED RINGERS 1000 ML IV PRN; -LIDOCAINE 0.5% INJ-PF (5 MG/ML) 50 ML SDV SUBCUT PRN; +LIDOCAINE 1% INJ-PF (10 MG/ML) 30 ML SDV ONE; -LIDOCAINE 1%/EPINEPHRINE INJ 20 ML VIAL ONE; +MIDAZOLAM 2 MG/2 ML INJ ONE; -POVIDONE-IODINE 5% OPH PREP SOLN 30 ML ONE; -SODIUM BICARBONATE 8.4% INJ 50 MEQ/50 ML DISP.SYRIN ONE
[2019-11-28] MEDS: CYCLOPENTOLATE 0.2%/PHENYLEPHRINE 1% OPH SOLN 2 ML OD PRN ×3 (08:15→08:40)
[2019-11-28] MEDS: BESIFLOXACIN HCL 0.6% OPH SUSP 5 ML BOTTLE OD PRN ×4 (08:15→09:16)
[2019-11-28] MEDS: TETRACAINE HCL 0.5% OPH SOLN 4 ML OD PRN ×3 (08:15→08:48)
[2019-11-28] MEDS: TROPICAMIDE 1% OPH SOLN 15 ML OD PRN ×3 (08:15→08:40)
[2019-11-28] MEDS: BUPIVACAINE HCL 0.75% INJ/PF (7.5 MG/1 ML) 10 ML SDV OD PRN ×2 (08:51)
[2019-11-28] MEDS: LIDOCAINE 4% INJ/PF (40 MG/ML) 5 ML AMPUL OD PRN ×2 (08:51)
[2019-11-28] MEDS: DORZOLAMIDE HCL 2%/TIMOLOL MALEAT 0.5% OPH SOLN 10 ML OD PRN ×2 (09:16)
--- NOTE | 2019-11-28 13:07 | Operative Report ---
Operative Report-[facility] Operative Report: DATE OF SURGERY: 11/28/2019 PREOPERATIVE DIAGNOSIS: CATARACT, RIGHT EYE. POSTOPERATIVE DIAGNOSIS: CATARACT, RIGHT EYE. PROCEDURE PERFORMED: PHACOEMULSIFICATION WITH POSTERIOR CHAMBER INTRAOCULAR LENS, RIGHT EYE. Intraocular Lens Model : MX60E 19.0 Total Phaco Time: 24.09 CDE SURGEON: NAPOLEON BANKS MD ANESTHESIA: TOPICAL WITH MAC. INDICATIONS FOR SURGERY: Difficulty reading road signs. PROCEDURE: The patient was brought to the Operating Room and placed on the operative table. Following tetracaine drops, topical anesthesia was administered. This consisted of instrument wipe pledgets soaked in a solution of 4% Xylocaine mixed with 0.75% Marcaine in a 1:2 ratio. A 2 x 1 cm pledget was placed in the superior fornix. A 1 x 1 cm pledget was placed in the inferior fornix. The eye was patched shut for 5 minutes. The patch was removed. The eye was sterilely prepped and draped in the usual manner. Lid speculum was placed in the eye. The pledgets were removed. 4-0 black silk sutures were placed around the superior and the inferior rectus muscles to be used as traction. A conjunctival peritomy was made at the 10 o'clock position. Hemostasis was obtained with bipolar cautery. A posterior limbal groove was created using a crescent knife and dissected anteriorly towards the cornea. A sharp point blade was used to create a paracentesis site at the 2 o'clock position. 0.2 cc non preserved Lidocaine was injected into the anterior chamber. A 2.4 mm keratome was used to enter the anterior chamber through the groove. Viscoelastic was injected into the anterior chamber. An anterior capsulotomy was performed using Utrata forceps in a capsulorrhexis fashion. Hydrodissection and hydrodelineation were performed. Phacoemulsification was performed in [id number]-[id number] technique. Following this, the I/A unit was used to remove residual cortex. Viscoelastic was injected into the capsular bag. The Intraocular lens was placed in the capsular bag. The I/A unit was used to remove residual viscoelastic. The wound was seen to be watertight under high and low pressure, and no sutures were placed. The intraocular lens was well centered. The pressure was adjusted in the eye to normal pressure. The 4-0 black silk sutures and lid speculum were removed. The eye was shielded after Besivance. prednisolone, and Cosopt drops were placed. The patient tolerated the procedure well and was sent to the Recovery Room in good condition.
== END 2019-11-28 09:51 | disposition home or self-care (01) ==
LOC: SC 08:00
PROVIDERS: ATTEND Ophthalmology
DX: H25.813 Combined forms of age-related cataract, bilateral (principal); E11.3293 Type 2 diabetes mellitus with mild nonproliferative diabetic retinopathy without macular edema, bilateral; H04.123 Dry eye syndrome of bilateral lacrimal glands; H43.812 Vitreous degeneration, left eye; C44.1192 Basal cell carcinoma of skin of left lower eyelid, including canthus; E78.00 Pure hypercholesterolemia, unspecified; E11.9 Type 2 diabetes mellitus without complications; Z85.828 Personal history of other malignant neoplasm of skin; Z79.84 Long term (current) use of oral hypoglycemic drugs; Z79.899 Other long term (current) drug therapy; Z79.4 Long term (current) use of insulin; Z87.891 Personal history of nicotine dependence
CPT/HCPCS: 82962; 66984; V2632; J2250; J3490 ×5; A9270; J0171; 142

== ENCOUNTER 2019-12-19 06:50 | Day surgery (SDC) | payer MEDICARE ==
[~2019-12-19 06:50] MED LIST changes: +BUPIVACAINE HCL 0.75% INJ/PF (7.5 MG/1 ML) 10 ML SDV OS PRN; -CHONDR SU A NA/HYALUR INTRAOC KIT (SURGICARE) ONE; -EPINEPHRINE INJ/PF 1 MG/1 ML AMPULE ONE; -KETOROLAC TROMETHAMINE 0.45% 4 DROP/0.4 ML DROPERETTE OD PRN; +KETOROLAC TROMETHAMINE 0.45% 4 DROP/0.4 ML DROPERETTE OS PRN; -LIDOCAINE 1% INJ-PF (10 MG/ML) 30 ML SDV ONE; +LIDOCAINE 4% INJ/PF (40 MG/ML) 5 ML AMPUL OS PRN; -MIDAZOLAM 2 MG/2 ML INJ ONE
[2019-12-19] MEDS ORDERED: MIDAZOLAM 2 MG/2 ML INJ ONE (07:02)
[2019-12-19] MEDS ORDERED: LIDOCAINE 1% INJ-PF (10 MG/ML) 30 ML SDV ONE (07:07)
[2019-12-19] MEDS ORDERED: CHONDR SU A NA/HYALUR INTRAOC KIT (SURGICARE) ONE (07:07)
[2019-12-19] MEDS ORDERED: EPINEPHRINE INJ/PF 1 MG/1 ML AMPULE ONE (07:07)
[2019-12-19] MEDS: BESIFLOXACIN HCL 0.6% OPH SUSP 5 ML BOTTLE OS PRN ×4 (07:11→08:23)
[2019-12-19] MEDS: TETRACAINE HCL 0.5% OPH SOLN 4 ML OS PRN ×3 (07:11→07:58)
[2019-12-19] MEDS: TROPICAMIDE 1% OPH SOLN 15 ML OS PRN ×3 (07:11→07:31)
[2019-12-19] MEDS: CYCLOPENTOLATE 0.2%/PHENYLEPHRINE 1% OPH SOLN 2 ML OS PRN ×3 (07:11→07:31)
[2019-12-19] MEDS: DORZOLAMIDE HCL 2%/TIMOLOL MALEAT 0.5% OPH SOLN 10 ML OS PRN ×2 (08:23)
--- NOTE | 2019-12-19 13:44 | Operative Report ---
Operative Report-[facility] Operative Report: DATE OF SURGERY: 12/19/2019 PREOPERATIVE DIAGNOSIS: CATARACT, LEFT EYE. POSTOPERATIVE DIAGNOSIS: CATARACT, LEFT EYE. PROCEDURE PERFORMED: PHACOEMULSIFICATION WITH POSTERIOR CHAMBER INTRAOCULAR LENS, LEFT EYE. Intraocular Lens Model :[id number] Total Phaco Time: 12.36 SURGEON: NAPOLEON BANKS MD ANESTHESIA: TOPICAL WITH MAC. INDICATIONS FOR SURGERY: Difficultly driving at night PROCEDURE: The patient was brought to the Operating Room and placed on the operative table. Following tetracaine drops, topical anesthesia was administered. This consisted of instrument wipe pledgets soaked in a solution of 4% Xylocaine mixed with 0.75% Marcaine in a 1:2 ratio. A 2 x 1 cm pledget was placed in the superior fornix. A 1 x 1 cm pledget was placed in the inferior fornix. The eye was patched shut for 5 minutes. The patch was removed. The eye was sterilely prepped and draped in the usual manner. Lid speculum was placed in the eye. The pledgets were removed. 4-0 black silk sutures were placed around the superior and the inferior rectus muscles to be used as traction. A conjunctival peritomy was made at the 10 o'clock position. Hemostasis was obtained with bipolar cautery. A posterior limbal groove was created using a crescent knife and dissected anteriorly towards the cornea. A sharp point blade was used to create a paracentesis site at the 2 o'clock position. 0.2 cc non preserved Lidocaine was injected into the anterior chamber. A 2.4 mm keratome was used to enter the anterior chamber through the groove. Viscoelastic was injected into the anterior chamber. An anterior capsulotomy was performed using Utrata forceps in a capsulorrhexis fashion. Hydrodissection and hydrodelineation were performed. Phacoemulsification was performed in [id number] technique. Following this, the I/A unit was used to remove residual cortex. Viscoelastic was injected into the capsular bag. The Intraocular lens was placed in the capsular bag. The I/A unit was used to remove residual viscoelastic. The wound was seen to be watertight under high and low pressure, and no sutures were placed. The intraocular lens was well centered. The pressure was adjusted in the eye to normal pressure. The 4-0 black silk sutures and lid speculum were removed. The eye was shielded after Besivance,prednisolone, and Cosopt drops were placed. The patient tolerated the procedure well and was sent to the Recovery Room in good condition.
== END 2019-12-19 09:02 | disposition home or self-care (01) ==
LOC: SC 06:50
PROVIDERS: ATTEND Ophthalmology
DX: H25.812 Combined forms of age-related cataract, left eye (principal); Z96.1 Presence of intraocular lens; E78.00 Pure hypercholesterolemia, unspecified; I10 Essential (primary) hypertension; Z85.828 Personal history of other malignant neoplasm of skin; Z89.421 Acquired absence of other right toe(s); Z87.891 Personal history of nicotine dependence; R01.1 Cardiac murmur, unspecified
CPT/HCPCS: 66984; 82962; V2632; J2250; J3490 ×5; A9270; J0171; 142

== ENCOUNTER 2020-01-27 14:08 | Emergency (ER) | payer MEDICARE ==
[2020-01-27] MEDS ORDERED: CEFTRIAXONE 1 GM/D5W RTU 1 GM/50 ML RTUPB IV ONE (14:18)
--- NOTE | 2020-01-27 14:21 | ER Document Report ---
ED Medical Screen (RME) - General Chief Complaint: Leg Injury Stated Complaint: LEG PAIN Time Seen by Provider: 01/27/20 14:11 Primary Care Provider: SHANTI BONILLA MD [Primary Care Provider] - Follow up as needed Mode of Arrival: Ambulatory Information source: Patient Notes: HPI; 75-year-old male presents to the emergency room after cutting his left guy on the edge of a piece of metal from a channel iron 5 days ago. Patient states he said increasing redness and pain for the past 2 days. Put some topical iodine on it without relief. Denies any fevers. Denies any discharge or draining. 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 PE: Alert and oriented x3. Lungs: Clear to auscultation without rales, rhonchi, wheezes. Heart: Regular rate and rhythm without murmurs, rubs, gallops. Left guy with a 4 cm laceration that is discolored with a increased area of erythema around the laceration that is healing. Positive left pedal pulse. I have greeted and performed a rapid initial assessment of this patient. A comprehensive ED assessment and evaluation of the patient, analysis of test results and completion of the medical decision making process will be conducted by additional ED providers. I have specifically instructed the patient or family members with the patient to immediately return to any nursing staff should anything change in the patient's condition or with their chief complaint. TRAVEL OUTSIDE OF THE [place] IN LAST 30 DAYS: No - Related Data Allergies/Adverse Reactions: No Known Allergies Allergy (Verified 01/27/20 14:12) Past Medical History - Social History Chew tobacco use (# tins/day): No Frequency of alcohol use: None Drug Abuse: None - Past Medical History Cardiac Medical History: Reports: Hx Heart Attack - 1984, Hx Peripheral Vascular Disease Denies: Hx Coronary Artery Disease, Hx Hypertension Pulmonary Medical History: Denies: Hx Asthma, Hx Bronchitis, Hx COPD, Hx Pneumonia Neurological Medical History: Denies: Hx Cerebrovascular Accident, Hx Seizures Endocrine Medical History: Reports: Hx Diabetes Mellitus Type 2 Renal/ Medical History: Denies: Hx Peritoneal Dialysis GI Medical History: Denies: Hx Hepatitis, Hx Hiatal Hernia, Hx Ulcer Psychiatric Medical History: Reports: Hx Depression Traumatic Medical History: Reports: Hx Fractures - Right tib-fib Infectious Medical History: Denies: Hx Hepatitis Past Surgical History: Reports: Hx Orthopedic Surgery - R-AKA. Denies: Hx Open Heart Surgery, Hx Pacemaker - Immunizations Hx Diphtheria, Pertussis, Tetanus Vaccination: Yes Physical Exam - Vital signs Vitals: Temp Pulse Resp BP Pulse Ox 98.7 F 76 20 144/60 H 95 01/27/20 14:13 01/27/20 14:13 01/27/20 14:13 01/27/20 14:13 01/27/20 14:13 Course - Vital Signs Vital signs: Temp Pulse Resp BP Pulse Ox 98.7 F 76 20 144/60 H 95 01/27/20 14:13 01/27/20 14:13 01/27/20 14:13 01/27/20 14:13 01/27/20 14:13 Doctor's Discharge - Discharge Referrals: SHANTI BONILLA MD [Primary Care Provider] - Follow up as needed
[2020-01-27 15:02] LABS: ABSOLUTE EOSINOPHILS # (AUTO) 0.2 10^3/uL (0.0-0.6); ABSOLUTE LYMPHOCYTES (AUTO) 2.5 10^3/uL (0.5-4.7); ABSOLUTE MONOCYTES (AUTO) 0.6 10^3/uL (0.1-1.4); ABSOLUTE NEUT (AUTO) 5.9 10^3/uL (1.7-8.2); BASOPHILS % (AUTO) 0.5 % (0-2); EOSINOPHILS % (AUTO) 2.7 % (0-6); HEMATOCRIT 35.8 % (37.9-51.0); HEMOGLOBIN 12.2 g/dL (13.5-17.0); LYMPHOCYTES % (AUTO) 26.9 % (13-45); MEAN CORPUSCULAR HEMOGLOBIN 30.3 pg (27.0-33.4); MEAN CORPUSCULAR VOLUME 89 fl (80-97); PLATELET COUNT 286 10^3/uL (150-450); RED BLOOD COUNT 4.02 10^6/uL (4.35-5.55); RED CELL DISTRIBUTION WIDTH 13.6 % (11.5-14.0); SEGMENTED NEUTROPHILS % (AUTO) 63.9 % (42-78); TOTAL CELLS COUNTED % (AUTO) 100 %; WHITE BLOOD COUNT 9.2 10^3/uL (4.0-10.5)
[2020-01-27 15:06] LABS: ALBUMIN 4.1 g/dL (3.5-5.0); ALKALINE PHOSPHATASE 49 U/L (38-126); ANION GAP 8 (5-19); ASPARTATE AMINO TRANSFERASE 29 U/L (17-59); BILIRUBIN,DIRECT 0.2 mg/dL (0.0-0.4); BILIRUBIN,TOTAL 0.6 mg/dL (0.2-1.3); BLOOD UREA NITROGEN 27 mg/dL (7-20); CALCIUM 9.5 mg/dL (8.4-10.2); CARBON DIOXIDE 28 mmol/L (22-30); CHLORIDE 100 mmol/L (98-107); GLUCOSE 222 mg/dL (75-110); POTASSIUM 5.1 mmol/L (3.6-5.0); TOTAL PROTEIN 7.1 g/dL (6.3-8.2)
--- NOTE | 2020-01-27 15:15 | RADIOLOGY REPORT (SQ) ---
EXAM DESCRIPTION: TIBIA FIBULA LEFT IMAGES COMPLETED DATE/TIME: 01/27/2020 1:53 pm REASON FOR STUDY: injury. Puncture wound. COMPARISON: None. NUMBER OF VIEWS: Two views. TECHNIQUE: Two radiographic images acquired of the left tibia and fibula to include the knee and ank le in at least one projection. LIMITATIONS: None. FINDINGS: MINERALIZATION: Normal. BONES: No acute fracture or dislocation. No worrisome bone lesions. SOFT TISSUES: No obvious swelling or foreign body. OTHER: No other significant finding. IMPRESSION: No radiographic abnormality of the left leg. TECHNICAL DOCUMENTATION: JOB ID: [id number] [employer]- All Rights Reserved Reading location - IP/workstation name: [email or web address]
[2020-01-27] MEDS ORDERED: CLINDAMYCIN 600 MG/D5W RTU 600 MG/50 ML RTUPB IV ONE (15:26)
[2020-01-27] MEDS ORDERED: CIPROFLOXACIN 400 MG/D5W RTU 400 MG/200 ML RTUPB IV ONE (15:43)
--- NOTE | 2020-01-27 16:55 | ER Document Report ---
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 States that he actually dropped a piece of metal on his leg which caused a approximately 4 cm laceration. He cleaned the area with hydrogen peroxide. He states that it became red shortly after and he did not tell his daughter until yesterday that he had a laceration. Patient denies any fevers, not tachycardic and denies any pain. 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 No additional symptoms reported. TRAVEL OUTSIDE OF THE [place] IN LAST 30 DAYS: No - Related Data Allergies/Adverse Reactions: No Known Allergies Allergy (Verified 01/27/20 14:12) Past Medical History - General Information source: Patient - Social History Smoking Status: Former Smoker Chew tobacco use (# tins/day): No Frequency of alcohol use: None Drug Abuse: None Family History: Hypertension Patient has homicidal ideation: No - Past Medical History Cardiac Medical History: Reports: Hx Heart Attack - 1984, Hx Peripheral Vascular Disease Denies: Hx Coronary Artery Disease, Hx Hypertension Pulmonary Medical History: Denies: Hx Asthma, Hx Bronchitis, Hx COPD, Hx Pneumonia Neurological Medical History: Denies: Hx Cerebrovascular Accident, Hx Seizures Endocrine Medical History: Reports: Hx Diabetes Mellitus Type 2 Renal/ Medical History: Denies: Hx Peritoneal Dialysis GI Medical History: Denies: Hx Hepatitis, Hx Hiatal Hernia, Hx Ulcer Psychiatric Medical History: Reports: Hx Depression Traumatic Medical History: Reports: Hx Fractures - Right tib-fib Infectious Medical History: Denies: Hx Hepatitis Past Surgical History: Reports: Hx Orthopedic Surgery - R-AKA. Denies: Hx Open Heart Surgery, Hx Pacemaker - Immunizations Hx Diphtheria, Pertussis, Tetanus Vaccination: Yes Review of Systems - Review of Systems Constitutional: No symptoms reported EENT: No symptoms reported Cardiovascular: No symptoms reported Respiratory: No symptoms reported Gastrointestinal: No symptoms reported Genitourinary: No symptoms reported Male Genitourinary: No symptoms reported Musculoskeletal: No symptoms reported Skin: See HPI Hematologic/Lymphatic: No symptoms reported Neurological/Psychological: No symptoms reported Physical Exam - Vital signs Vitals: Temp Pulse Resp BP Pulse Ox 98.7 F 76 20 144/60 H 95 01/27/20 14:13 01/27/20 14:13 01/27/20 14:13 01/27/20 14:13 01/27/20 14:13 Interpretation: Hypertensive - Notes Notes: Adult General: GENERAL: Alert, interacts well. No acute distress HEAD: Normocephalic, atraumatic EYES: Pupils equal, round and reactive to light. Extraocular movements intact. ENT: Airway patent. Nares patent. NECK: Full range of motion. Supple. Trachea midline. No lymphadenopathy. LUNGS: Clear to auscultation bilaterally, no wheezes, rales, or rhonchi. No respiratory distress. Nontender chest wall. HEART: Regular rate and rhythm. No murmurs, rubs or gallops. ABDOMEN: Nondistended. GENITOURINARY: Deferred EXTREMITIES: 4 cm laceration to the left lateral anterior guy that has scabbed over with associated erythema and warmth, no pus or palpable abscess. The erythema and warmth has increased in size in the last 24 hours. Mild tenderness on the lower portion of the wound, no palpable abscesses or purulent drainage from the wound. moves all 4 extremities spontaneously. No edema, normal radial and dorsal pedis pulses bilaterally. No cyanosis. BACK: Moves all extremities with full range of motion. NEUROLOGICAL: Alert and oriented x3. Normal speech. Strength 5/ 5 in all extremities. PSYCH: Normal affect, normal mood. SKIN: Warm, dry, normal turgor. No rashes or lesions noted. Course - Re-evaluation Re-evalutation: 01/27/20 16:53 Patient is in no acute distress. Remains afebrile, is not tachycardic. Lactic is within normal limits. Patient has no elevated leukocytosis. Sodium is mildly decreased and potassium is mildly elevated. Blood glucose is 222. X-ray of tib-fib shows no bony lesions or fractures. physical exam is consistent with cellulitis. I will go ahead and order him a dose of clindamycin to cover for MRSA as he has a history of this and also Cipro as he has a history of diabetes. I will also order these medications outpatient. I did discuss antibiotic regimen with Dr. Hooker who is in agreement with the plan. I also discussed with patient emergent return precautions to include worsening/spreading redness, swelling, warmth, fevers, chills or additional symptoms. I also discussed side effects of the antibiotics with the patient. I also recommend that he follows up with his primary care provider on Wednesday. Patient acknowledges and verbalizes understanding of instructions and plan. All questions answered. Daughter was in the room and also verbalizes understanding of instructions. - Vital Signs Vital signs: Temp Pulse Resp BP Pulse Ox 97.5 F 65 17 153/65 H 99 01/27/20 18:28 01/27/20 18:28 01/27/20 18:28 01/27/20 18:28 01/27/20 18:28 - Laboratory Result Diagrams: 01/27/20 14:25 01/27/20 14:25 Laboratory results interpreted by me: 01/27/20 01/27/20 14:25 14:25 RBC 4.02 L Hgb 12.2 L Hct 35.8 L Sodium 136.4 L Potassium 5.1 H BUN 27 H Glucose 222 H Discharge - Discharge Clinical Impression: Cellulitis Qualifiers: Site of cellulitis: extremity Site of cellulitis of extremity: lower extremity Laterality: left Qualified Code(s): L03.116 - Cellulitis of left lower limb Condition: Stable Disposition: HOME, SELF-CARE Instructions: Cellulitis ([facility]), Tetanus Immunization Given ([facility]) Additional Instructions: You have been evaluated for cellulitis surrounding the laceration that occurred 6 days ago. Please take antibiotics as prescribed. If you develop diarrhea while taking these abxs or additional symptoms please seek medical attention. Please return to the emergency department if you do not have improvement in symptoms in 48 to 72 hours. Prescriptions: Ciprofloxacin HCl [Cipro 500 mg Tablet] 500 mg PO BID 7 Days #14 tablet Clindamycin HCl 450 mg PO TID 21 Days #30 capsule Referrals: SHANTI BONILLA MD [Primary Care Provider] - Follow up as needed
[2020-01-27] MEDS ORDERED: DIPH/PERTUSS(ACELL)/TETANUS VAC/PF 0.5 ML SYR (>=10YO) IM ONE (17:11)
[2020-01-27 18:30] VITALS: BP 153/65
== END 2020-01-27 18:41 | disposition home or self-care (01) ==
LOC: ER 14:08
DX: S81.812A Laceration without foreign body, left lower leg, initial encounter (principal); L03.116 Cellulitis of left lower limb; W22.8XXA Striking against or struck by other objects, initial encounter; Y93.89 Activity, other specified; Y92.89 Other specified places as the place of occurrence of the external cause; E11.51 Type 2 diabetes mellitus with diabetic peripheral angiopathy without gangrene; I25.10 Atherosclerotic heart disease of native coronary artery without angina pectoris; Z86.14 Personal history of Methicillin resistant Staphylococcus aureus infection; Z89.611 Acquired absence of right leg above knee; Z87.891 Personal history of nicotine dependence; Z23 Encounter for immunization
CPT/HCPCS: 99284; 90471; 96365; 96367; 36415; 87040; 83605; 85025; 80053; 73590; 90715; J0744

== ENCOUNTER 2020-02-01 11:15 | Emergency (ER) | payer MEDICARE ==
[2020-02-01 11:45] VITALS: BP 122/53
--- NOTE | 2020-02-01 12:24 | ER Document Report ---
HPI - HPI Patient complains to provider of: Wound recheck Time Seen by Provider: 02/01/20 12:23 Onset: Other Onset/Duration: Persistent - Days Pain Level: 2 Context: Patient is a diabetic and cut his leg on a metal box 5 days ago. Patient was placed on clindamycin and has been taking the medication daily. Wound has not completely healed and patient was concerned due to his underlying history of diabetes. Patient has been cleaning the wound with antibacterial soap and water and leaving it open to air. Associated Symptoms: denies: Fever, Nausea, Vomiting Exacerbated by: Denies Relieved by: Denies Similar symptoms previously: Yes Recently seen / treated by doctor: Yes - ROS ROS below otherwise negative: Yes Systems Reviewed and Negative: Yes All other systems reviewed and negative - CONSTITUTIONAL Constitutional: DENIES: Fever, Chills - MUSCULOSKELETAL Musculoskeletal: REPORTS: Extremity pain - DERM Skin Color: Normal Skin Problems: Open to Air - Wound Past Medical History - General Information source: Patient, Relative - Social History Smoking Status: Never Smoker Chew tobacco use (# tins/day): No Frequency of alcohol use: None Drug Abuse: None Lives with: Family Family History: Hypertension - Past Medical History Cardiac Medical History: Reports: Hx Heart Attack - 1984, Hx Peripheral Vascular Disease Denies: Hx Coronary Artery Disease, Hx Hypertension Neurological Medical History: Denies: Hx Cerebrovascular Accident, Hx Seizures Endocrine Medical History: Reports: Hx Diabetes Mellitus Type 2 Renal/ Medical History: Denies: Hx Peritoneal Dialysis GI Medical History: Denies: Hx Hepatitis, Hx Hiatal Hernia, Hx Ulcer Psychiatric Medical History: Reports: Hx Depression Traumatic Medical History: Reports: Hx Fractures - Right tib-fib Infectious Medical History: Denies: Hx Hepatitis Past Surgical History: Reports: Hx Orthopedic Surgery - R-AKA - Immunizations Hx Diphtheria, Pertussis, Tetanus Vaccination: Yes Vertical Provider Document - CONSTITUTIONAL Agree With Documented VS: Yes Exam Limitations: No Limitations General Appearance: WD/WN Notes: Constitutional: Nontoxic appearance, no acute distress Eyes: Nonicteric, extraocular movements intact, sclera clear Cardiovascular: Heart rate and rhythm regular, no JVD Respiratory: Sounds clear bilaterally, nonlabored breathing, no use of accessory muscles, no tachypnea Gastrointestinal: Abdomen not distended Muculoskeletal: Moves all extremities well, normal gait Skin: Patient with a healing 3 cm laceration to the anterior aspect of distal left lower leg, no surrounding erythema, no purulent drainage, normal color Neuro: Awake alert oriented, normal speech Psych: Normal mood and affect - INFECTION CONTROL TRAVEL OUTSIDE OF THE [place] IN LAST 30 DAYS: No Course - Re-evaluation Re-evalutation: 02/01/20 12:26 Patient with healing laceration to the anterior lower leg, no erythema, increased pain or purulence, no concern about any worsening infection at this time. Patient has a history of diabetes with a previous amputation and was concerned about how long his wound was taken to heal. Patient advised that he will have delayed healing due to his underlying diabetes. Will add prescription for Bactroban as patient is wanting a prescription ointment to put to the wound at this time. - Vital Signs Vital signs: Temp Pulse Resp BP Pulse Ox 97.9 F 64 16 122/53 L 97 02/01/20 12:15 02/01/20 11:43 02/01/20 11:43 02/01/20 11:43 02/01/20 11:43 Discharge - Discharge Clinical Impression: Encounter for wound re-check Condition: Stable Disposition: HOME, SELF-CARE Instructions: Bactroban Ointment ([facility]), Dressing Instructions for Open Wounds ([facility]) Additional Instructions: Return immediately for any new or worsening symptoms Followup with your primary care provider, call tomorrow to make a followup appointment Keep wound clean and dry, you may cover with a large Band-Aid dressing Prescriptions: Mupirocin [Bactroban 2% Ointment 22 gm] 1 applic TP BID #22 gm Referrals: SHANTI BONILLA MD [Primary Care Provider] - Follow up as needed
== END 2020-02-01 12:34 | disposition home or self-care (01) ==
LOC: ER 11:15
DX: S81.819D Laceration without foreign body, unspecified lower leg, subsequent encounter (principal); X58.XXXD Exposure to other specified factors, subsequent encounter; E11.9 Type 2 diabetes mellitus without complications
CPT/HCPCS: 99283